=== PATIENT | female | born 1960 | race African-American/Black ===

== ENCOUNTER 2017-01-21 13:56 | Emergency (ER) | payer MEDICARE, OTHER ==
[~2017-01-21] VITALS: Ht 175.3 cm; Wt 85.7 kg
[~2017-01-21 13:56] MED LIST: AMLO5TAB4 PO; ASPI81TA2 PO; COLE1TAB PO; DICY10CA53 PO; EZET10TA3 PO; FENO135C PO; FENT1PAT15 TD; FENT1PAT90 TP; LATA2.5D3 EACHEYE; LIPITOR80 MG PO; LOSA50TA6 PO; MECL25TA3 PO; MUPI15CR8 TP; OMEP40CA5 PO; OXYC-250 PO; PROC5TAB14 PO; TOPI25TA32 PO; TRIA1CAP PO
[2017-01-21] MEDS ORDERED: IV NORMAL SALINE 1000ML BAG 1,000 ML IV SCH (15:16)
--- NOTE | 2017-01-21 15:16 | PHYS DOC ---
Past Medical History Past Medical History: High Cholesterol, Hypertension, Other Additional Past Medical Histor: Lupus Past Surgical History: Cholecystectomy, Hysterectomy, Tubal ligation Alcohol Use: Occasionally Drug Use: None Adult General Chief Complaint Chief Complaint: FLANK PAIN HPI HPI Patient is a 56 year old female who presents with L flank pain. Patient reports since yesterday she has had sharp L flank pain. No clear inciting or mitigating factors, other than slight improvement in pain after taking a pain pill last night. Pain accompanied by nausea but no vomiting. No dysuria or other urinary complaints. No fever. Had a similar episode in the distant past. Review of Systems Review of Systems Constitutional: Denies fever or chills Eyes: Denies change in visual acuity or eye pain HENT: Denies nasal congestion or sore throat Respiratory: Denies cough or shortness of breath Cardiovascular: Denies chest pain GI: Nausea. Denies abdominal pain, vomiting, bloody stools or diarrhea : Denies dysuria or hematuria Musculoskeletal: L flank pain Integument: Denies rash or skin lesions Neurologic: Denies headache, focal weakness or sensory changes Current Medications Current Medications Current Medications Medications (Trade) Dose Ordered Sig/Tiffani Start Time Stop Time Status Last Admin Dose Admin Morphine Sulfate 4 mg 1X ONCE 01/21/17 15:30 01/21/17 17:10 DC 01/21/17 15:39 4 MG Ondansetron HCl (Zofran) 4 mg 1X ONCE 01/21/17 15:30 01/21/17 17:10 DC 01/21/17 15:39 4 MG Sodium Chloride (Iv Sodium Chloride 0.9% 1000ml Bag) 1,000 ml @ 1,000 mls/hr Q1H 01/21/17 15:16 01/21/17 17:10 DC 01/21/17 15:38 1,000 MLS/HR Allergies Allergies Allergies Coded Allergies Type Severity Reaction Last Updated Verified No Known Drug Allergies 09/08/16 No Physical Exam Physical Exam Constitutional: Well developed, well nourished, no acute distress, non-toxic appearance HENT: Normocephalic, atraumatic, bilateral external ears normal Eyes: EOMI, conjunctiva normal, no discharge Neck: Normal range of motion, no stridor Cardiovascular: Heart rate normal, regular rhythm, no murmur Lungs & Thorax: Bilateral breath sounds clear to auscultation Abdomen: Bowel sounds normal, soft, non-distended, no TTP Skin: Warm, dry, no erythema, no rash Back: No CVA tenderness Extremities: No obvious deformity, no edema Neurologic: Alert and oriented X 3, no gross deficits noted Current Patient Data Vital Signs Vital Signs Date Time Temp Pulse Resp B/P Pulse Ox O2 Delivery O2 Flow Rate FiO2 01/21/17 17:49 89 20 160/82 100 Room Air 01/21/17 14:15 98.5 98.5 Lab Values Laboratory Tests Test 01/21/17 14:08 01/21/17 14:30 Urine Collection Type Unknown Urine Color Yellow Urine Clarity Clear Urine pH 8.0 Urine Specific Lamont 1.020 Urine Protein Negativemg/dL (NEG-TRACE) Urine Glucose (UA) Negativemg/dL (NEG) Urine Ketones (Stick) Negativemg/dL (NEG) Urine Blood Negative (NEG) Urine Nitrite Negative (NEG) Urine Bilirubin Negative (NEG) Urine Urobilinogen Dipstick 1.0mg/dL (0.2 mg/dL) Urine Leukocyte Esterase Negative (NEG) Urine RBC 0/HPF (0-2) Urine WBC 0/HPF (0-4) Urine Squamous Epithelial Cells Many/LPF Urine Bacteria Few/HPF (0-FEW) Urine Mucus Slight/LPF White Blood Count 9.5x10^3/uL (4.0-11.0) Red Blood Count 4.21x10^6/uL (3.50-5.40) Hemoglobin 13.8g/dL (12.0-15.5) Hematocrit 40.5% (36.0-47.0) Mean Corpuscular Volume 96fL (79-100) Mean Corpuscular Hemoglobin 33pg (25-35) Mean Corpuscular Hemoglobin Concent 34g/dL (31-37) Red Cell Distribution Width 13.1% (11.5-14.5) Platelet Count 300x10^3/uL (140-400) Neutrophils (%) (Auto) 56% (31-73) Lymphocytes (%) (Auto) 34% (24-48) Monocytes (%) (Auto) 7% (0-9) Eosinophils (%) (Auto) 2% (0-3) Basophils (%) (Auto) 1% (0-3) Neutrophils # (Auto) 5.3x10^3uL (1.8-7.7) Lymphocytes # (Auto) 3.2x10^3/uL (1.0-4.8) Monocytes # (Auto) 0.7x10^3/uL (0.0-1.1) Eosinophils # (Auto) 0.2x10^3/uL (0.0-0.7) Basophils # (Auto) 0.1x10^3/uL (0.0-0.2) Sodium Level 145mmol/L (136-145) Potassium Level 3.8mmol/L (3.5-5.1) Chloride Level 107mmol/L (98-107) Carbon Dioxide Level 28mmol/L (21-32) Anion Gap 10 (6-14) Blood Urea Nitrogen 6mg/dL (7-20) L Creatinine 0.9mg/dL (0.6-1.0) Estimated GFR (Cockcroft-Gault) 78.7 BUN/Creatinine Ratio 7 (6-20) Glucose Level 86mg/dL (70-99) Calcium Level 8.9mg/dL (8.5-10.1) Total Bilirubin 0.3mg/dL (0.2-1.0) Aspartate Amino Transferase (AST) 20U/L (15-37) Alanine Aminotransferase (ALT) 22U/L (14-59) Alkaline Phosphatase 57U/L (46-116) Total Protein 7.7g/dL (6.4-8.2) Albumin 3.7g/dL (3.4-5.0) Albumin/Globulin Ratio 0.9 (1.0-1.7) L Laboratory Tests 01/21/17 14:30 Laboratory Tests 01/21/17 14:30 EKG EKG [] Radiology/Procedures Radiology/Procedures CT A/P: IMPRESSION: 1. No urinary tract calculi are identified. 2. Colonic diverticulosis. Course & Med Decision Making Course & Med Decision Making Pertinent Labs and Imaging studies reviewed. (See chart for details) Patient is 56 year old female who presents with L flank pain. Possible ureteral stone. Pyelonephritis or musculoskeletal etiology also possible. Will check labs , UA, CT A/P to evaluate. IVF bolus, pain meds, nausea meds ordered for relief of symptoms. Blood work unremarkable. UA also unremarkable. CT results as above. Discussed results with patient, who is feeling better at this time. Will plan discharge home with rx for pain meds, instructions for follow up, return precautions. Dragon Disclaimer Dragon Disclaimer This electronic medical record was generated, in whole or in part, using a voice recognition dictation system. Departure Departure Impression: Primary Impression: Left flank pain Disposition: HOME, SELF-CARE Condition: IMPROVED Referrals: ANIBAL HERNANDEZ MD (PCP) Patient Instructions: Flank Pain Additional Instructions: Thank you for allowing us to provide care today in the Emergency Department. Take the provided medication as directed. Use caution as it can make you drowsy. Schedule a follow up appointment with your primary care doctor. Return promptly to the Emergency Department if you develop any new or concerning symptoms. Scripts Hydrocodone/Apap 5-325 (Antigo 5-325 Tablet)1 Each Tablet1 Tab PO PRN Q6HRS PRN PAIN #15 TAB Prov:MARSHALL BAKER MD 01/21/17 MARSHALL BAKER MD Jan 21, 2017 15:16
[2017-01-21] MEDS ORDERED: MORPHINE SULFATE 4 MG/ML DISP.SYRIN. IV ONE (15:30)
[2017-01-21] MEDS ORDERED: ONDANSETRON PF 4 MG/2 ML VIAL. IV ONE (15:30)
[2017-01-21 15:34] LABS: BASO # 0.1 x10^3/uL (0.0-0.2); BASO % 1 % (0-3); EOS % 2 % (0-3); HEMATOCRIT 40.5 % (36.0-47.0); HEMOGLOBIN 13.8 g/dL (12.0-15.5); LYMPH # 3.2 x10^3/uL (1.0-4.8); LYMPH % 34 % (24-48); MEAN CORPUSCULAR HEMOGLOBIN 33 pg (25-35); MEAN CORPUSCULAR HGB CONC 34 g/dL (31-37); MEAN CORPUSCULAR VOLUME 96 fL (79-100); MONO % 7 % (0-9); NEUT % 56 % (31-73); PLATELET COUNT 300 x10^3/uL (140-400); RED BLOOD COUNT 4.21 x10^6/uL (3.50-5.40); RED CELL DISTRIBUTION WIDTH 13.1 % (11.5-14.5); WHITE BLOOD COUNT 9.5 x10^3/uL (4.0-11.0)
[2017-01-21 15:46] LABS: BILIRUBIN,URINE NEGATIVE (NEG); GLUCOSE,URINE NEGATIVE (NEG); NITRITE,URINE NEGATIVE (NEG); PROTEIN,URINE NEGATIVE (NEG-TRACE)
[2017-01-21 15:49] LABS: CALCIUM 8.9 mg/dL (8.5-10.1); CREATININE 0.9 mg/dL (0.6-1.0); GFR 78.7; POTASSIUM 3.8 mmol/L (3.5-5.1)
[2017-01-21 15:55] LABS: ALBUMIN 3.7 g/dL (3.4-5.0); ALBUMIN/GLOBULIN RATIO 0.9 (1.0-1.7); TOTAL BILIRUBIN 0.3 mg/dL (0.2-1.0); TOTAL PROTEIN 7.7 g/dL (6.4-8.2)
[2017-01-21 16:01] LABS: BACTERIA,URINE FEW /HPF (0-FEW); RBC,URINE 0 /HPF (0-2); SQUAMOUS EPITHELIAL CELL,UR MANY /LPF; WBC,URINE 0 /HPF (0-4)
--- NOTE | 2017-01-21 16:37 | RAD ---
PQRS Compliance Statement: One or more of the following individualized dose reduction techniques were utilized for this examination: 1. Automated exposure control 2. Adjustment of the mA and/or kV according to patient size 3. Use of iterative reconstruction technique CT of the abdomen and pelvis without contrast, 01/21/2017: History: Left flank pain Noncontrast scans were obtained through the urinary tract utilizing the renal stone protocol. This is a limited study for evaluation of the possibility of urinary tract calculi. No intrarenal calculi are identified. The renal collecting systems and ureters are not dilated. No ureteral calculus is seen. Several pelvic calcifications are compatible with a combination of phleboliths and arterial calcifications. Mild diffuse bladder wall thickening is probably related to its nondistended state. The unopacified liver is unremarkable. The gallbladder is surgically absent. There is moderate dilatation of the common bile duct, probably secondary to the postcholecystectomy state. This was also evident on the study from 02/19/2015. No pancreatic abnormality is evident. The spleen is of normal size. Aortic calcific plaquing is present without evidence of aneurysm. No abdominal or pelvic adenopathy is seen. The uterus is surgically absent. Scattered colonic diverticula are present. No paracolonic inflammatory process is seen. The bowel loops are not dilated. The appendix is visualized and shows no abnormality. No free fluid or free air is evident in the abdomen or pelvis. Avascular necrosis is again noted in both femoral heads. IMPRESSION: 1. No urinary tract calculi are identified. 2. Colonic diverticulosis.
[2017-01-21] MEDS ORDERED: HYDR-971 PO (17:24)
[2017-01-21 17:49] VITALS: BP 160/82
== END 2017-01-21 17:50 | disposition home or self-care (01) ==
LOC: ER 13:56
DX: R10.9 Unspecified abdominal pain (principal); R11.0 Nausea; E78.00 Pure hypercholesterolemia, unspecified; I10 Essential (primary) hypertension; M32.9 Systemic lupus erythematosus, unspecified; Z90.49 Acquired absence of other specified parts of digestive tract; Z90.710 Acquired absence of both cervix and uterus; Z98.51 Tubal ligation status
CPT/HCPCS: 36415; 74176; 80053; 81001; 85027; 96361; 96374; 96375; 99285; J2270; J2405; J7030

== ENCOUNTER → 2017-01-23 | Day surgery (SDC) | payer MEDICARE, OTHER ==
[~2017-01-23] MED LIST changes: +FENTANYL PF 100 MCG/2 ML VIAL. IV PRN; +HYDR-971 PO; +HYDROMORPHONE 2 MG/ML VIAL. IV PRN; +IV RINGERS,LACTATED 1000ML 1,000 ML IV SCH; +LIDOCAINE 1% 1 ML SYRINGE. ID PRN; +MORPHINE SULFATE 2 MG/ML DISP.SYRIN. IV PRN; +ONDANSETRON PF 4 MG/2 ML VIAL. IV PRN; +PROCHLORPERAZINE 10 MG/2 ML VIAL. IV PRN; +PROPOFOL 40 ML IV ONE
--- NOTE | 2017-01-23 09:00 | PDOC1 ---
HISTORY & PHYSICAL H&P Elba Eaton [id number] 1960 01/10/2017 03:00 PM 11/27 Offsite Care Resources [facility], [facility] OUR PATIENTS COME FIRST [address] [place] [id number] Ph. [phone] Patient: Elba Eaton Date of : 1960 Date: 01/10/2017 3:00 PM Visit Type: Office Visit This 56 year old female presents for Abdominal pain and Diarrhea. History of Present Illness: 1. Abdominal pain Location is epigastric, midline. There is no radiation. The patient describes it as aching, bloating and gnawing. Context: no pattern noted. Denies aggravating factors. Denies relieving factors. 2. Diarrhea Stool frequency: 3 to 5 times a day. The describes it as loose and watery. Associated symptoms include abdominal pain and bloating. Pertinent negatives include blood in stool, change in appetite, fever, nausea, rash and weight loss. Additional information: Patient was given Colestid before but does not know if it worked or not. Had last colonoscopy 2012. Had polyp removed and not retrieved. PROBLEM LIST: Problem Description Onset Date Numbness in both hands 04/01/2016 Chronic foot ulcer with fat layer exposed, right 06/15/2016 Gastroparesis syndrome 03/19/2013 Acute bacterial otitis media, left 03/18/2016 Varicose ulcer of lower extremity 03/28/2011 Medicare advantage coverage 10/21/2013 Anemia due to vitamin B12 deficiency, unspecified B12 deficiency type 2015 Hyperlipidemia 03/28/2011 Chronic pain 03/28/2011 Tobacco dependence syndrome 03/28/2011 Menopausal symptom 03/28/2011 Vasculitis 09/05/2016 GERD with esophagitis 11/23/2015 Varicose veins of bilateral lower extremities with other complications 2015 Chronic obstructive lung disease 12/20/2012 Migraine with aura 02/21/2014 Pain in both hands 02/23/2016 Neuropathy 02/23/2016 Benign essential hypertension 09/18/2009 Gastroesophageal reflux disease 09/18/2009 Pain in limb 09/18/2009 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 Abnormal glucose level 10/25/2012 PAST MEDICAL/SURGICAL HISTORY (Detailed) Disease/disorder Onset Date Management Date Comments EGD with biopsy 12/06/2012 Hysterectomy Cholecystectomy Bilateral tubal ligation Colonoscopy 2006 colonoscopy 04/22/2008 EGD with biopsy 02/09/2009 colonoscopy 10/14/2011 Cellulitis Chronic leg ulceration Colonic polyps colonoscopy 03/25/2013 Cutaneous lupus Diverticulosis Diverticulosis Duodenal polyp EGD with biopsy 07/22/2010 duodenitis EGD with biopsy 10/14/2011 Gastritis EGD 2005 Gastritis History of C.diff HTN Hyperlipidemia Hypertension rt carpel tunnel+rt elbow ulnar nerve 2016 surgrery rt wrist and elbow DIAGNOSTICS HISTORY: Test Ordered Interpretation Result completed [facility] GI ENDOSCOPY, DIAGNOSIS 07/22/2010 Abnormal duodenal polyp, gastritis, reflux esophagitis, schatzki's ring BX: hyperplastic duodenal polyps, mild chronic gastritis-KR 07/22/2010 Colonoscopy 10/05/2011 Diverticulosis of the sigmoid colon and descending colon. 10/14/2011 UPPR GI SCOPE DILATE STRICTR 10/05/2011 Granularity, erythema and nodularity in the distal bulb compatible with Nodular duodinitis (bx). Granularity, erythema and congestion in the antrum compatible with gastritis (bx). Stenosis of the lower third of esophagus (dilation). Grade II esophagitis in the lower third of the esophagus compatible with Ref esophagitis. 10/14/2011 EGD 11/28/2012 abnormal Imp: possible gastroparesis(bx) BX: reactive gastropathy 12/06/2012 Test Ordered Ordering Comments Modifier UPPR GI ENDOSCOPY, DIAGNOSIS 07/22/2010 Gastroenterology Colonoscopy 10/05/2011 UPPR GI SCOPE DILATE STRICTR 10/05/2011 EGD 11/28/2012 Medications (Active): Started Medication Directions Instruction Stopped 01/06/2017 amlodipine 5 mg tablet take 2 tablets (10MG) by oral route every day 01/06/2017 Bactroban 2 % topical ointment apply by topical route 2 times every day a small amount to the affected area 06/15/2016 cyanocobalamin (vit B-12) 1,000 mcg/mL injection solution inject 0.1 milliliter by intramuscular route every month 06/15/2016 Dyazide 37.5 mg-25 mg capsule take 1 capsule by ORAL route every day 01/06/2017 fentanyl 25 mcg/hr transdermal patch apply 1 patch by transdermal route every 72 hours 06/15/2016 folic acid 1 mg tablet take 1 tablet by oral route 2 times every day Horizant ER 600 mg tablet,extended release take 1 tablet by oral route 2 times every day with food at about 5 p.m. 09/03/2015 Lexapro 10 mg tablet take 1 tablet by oral route every day 05/18/2016 Lipitor 80 mg tablet take 1 tablet (80MG) by oral route every day 04/22/2015 losartan 50 mg tablet take 1 tablet by oral route every day 06/22/2015 omeprazole 40 mg capsule,delayed release take 1 capsule (40MG) by oral route every day before a meal 01/06/2017 Percocet 10 mg-325 mg tablet take 1 tablet by oral route every 4 hours as needed 01/06/2017 prochlorperazine maleate 10 mg tablet take 1 tablet by oral route 2 times every day 01/06/2017 Protonix 40 mg tablet,delayed release take 1 tablet by oral route every day 02/17/2016 Super B Complex-Vitamin C tablet take 1 tablet daily 01/06/2017 Topamax 25 mg tablet take 1 tablet by oral route 2 times every day in the morning and evening 10/19/2015 Trilipix 135 mg capsule,delayed release take 1 capsule (135MG) by ORAL route every day 10/19/2015 Zetia 10 mg tablet take 1 tablet (10MG) by oral route every day Allergies: Ingredient Reaction Medication Name Comment NO KNOWN ALLERGIES REVIEW OF SYSTEMS System Neg/Pos Details Constitutional Negative Chills, fever, malaise and weight loss. ENMT Negative Sore throat. Eyes Negative Double vision. Respiratory Negative Dyspnea and wheezing. Cardio Negative Chest pain and irregular heartbeat/palpitations. GI Positive Abdominal pain, Bloating, See HPI. GI Negative Blood in stool, change in appetite, nausea and see HPI. Negative Dysuria and hematuria. Endocrine Negative Cold intolerance and heat intolerance. Psych Negative Anxiety. Integumentary Negative Hives and rash. MS Negative Joint pain. Vitaliy/Lymph Negative Easy bleeding and easy bruising. Allergic/Immuno Negative Food allergies. VITAL SIGNS Time BP mm/Hg Pulse /min Resp /min Temp F Ht ft Ht in Ht cm Wt lb Wt kg BMI kg/ m2 BSA m2 O2 Sat% 2:42 PM 100 98.2 5.0 9.00 175.26 189.60 86.001 28.00 94 Time Measured by 2:42 PM Betty Richard PHYSICAL EXAM: Exam Findings Details Constitutional Normal Well developed. Eyes Normal Conjunctiva - Right: Normal, Left: Normal. Sclera - Right: Normal, Left: Normal. Nasopharynx Normal Lips/teeth/gums - Normal. Neck Exam Normal Inspection - Normal. Thyroid gland - Normal. Respiratory Normal Inspection - Normal. Auscultation - Normal. Cardiovascular Normal Regular rate and rhythm. No murmurs, gallops, or rubs. Vascular Normal Pulses - Carotids: Normal, Femoral: Normal, Dorsalis pedis: Normal. Abdomen Normal Inspection - Normal. Anterior palpation - No guarding. No abdominal tenderness. No hepatic enlargement. No splenic enlargement. No hernia. No Ascites. Skin Normal Inspection - Normal. Extremity Normal No edema. Psychiatric Normal Oriented to time, place, person, and situation. Appropriate mood and effect. The patient was checked out at 3:14 PM by Betty Richard. Assessment/Plan # Detail Type Description 1. Assessment Pain of upper abdomen (R10.10). Patient Plan schedule EGD at [facility] Plan Orders Further diagnostic evaluations ordered today include(s) EGD to be performed today. She is to schedule a follow-up visit with Marcela Greene MD upon completion of work-up 2. Assessment Functional diarrhea (K59.1). Provider Plan Could be due to IBS. last colonoscopy 2012. Negative. One polyp was removed but could not retrieved. 3. Assessment Irritable bowel syndrome with diarrhea (K58.0). Provider Plan Previous trial of Colestid unsuccessful. Electronically signed by: Marcela Greene MD 01/10/2017 03:40 PM Document generated by: Marcela Greene 01/10/2017 03:40 PM Jarrell Summers MD, Family Practice; Erick Neil MD Internal Medicine; Shauna Heart MD, Internal Medicine; Ayana Greene MD Internal Medicine; Marcela Greene MD, Gastroenterology; Best Storey MD, Rheumatology, S. Espinoza Galarza, Physical Medicine/Rehab JRomero Herrera APRN ------ 01/23/17 Patient seen and examined. No change in H&P. MARCELA GREENE MD Jan 23, 2017 09:00
--- NOTE | 2017-01-23 10:17 | PDOC4 ---
GI OP Report - Dr. Hernandez Date/Time DATE: 01/23/17 TIME: 10:16 Attending Physician Tomas Hernandez MD Referring Physician Indications Epigastric abdominal pain Pre-Op See the Anesthesia note for documentation of the administered medications Procedures Upper GI endoscopy+bx Findings - LA Grade B reflux esophagitis. - Small hiatus hernia. - Mild Schatzki ring. - Gastritis. Biopsied. - Nodular mucosa in the duodenal bulb. Biopsied. - Normal 2nd part of the duodenum and 3rd part of the duodenum. Plan - Discharge patient to home. - Patient has a contact number available for emergencies. The signs and symptoms of potential delayed complications were discussed with the patient. Return to normal activities tomorrow. Written discharge instructions were provided to the patient. - Resume regular diet. - Continue present medications. - Await pathology results. - Return to my office in 2 weeks. TOMAS HERNANDEZ MD Jan 23, 2017 10:17
[2017-01-23 10:30] VITALS: BP 157/109
--- NOTE | 2017-01-24 16:39 | PATHOLOGY ---
PATHOLOGY REPORT * * * * * * * * FINAL DIAGNOSIS: A. Duodenal biopsy: - Mild chronic duodenitis with focally prominent submucosal Ayaka's glands. B. Gastric biopsy, antrum: - Chronic gastritis, mild. COMMENT: Sections of the duodenal biopsy show congestion and mild chronic inflammation with focally prominent submucosal Ayaka's glands. The mucosal villi appear focally shortened. There is no intraepithelial lymphocytosis typical of sprue, however. The histologic findings are nonspecific. Sections of the gastric antral biopsy show congestion and mild chronic inflammation. An immunoperoxidase stain for Helicobacter is obtained. No Helicobacter organisms are identified. (JPM:csd; d/t: 01/24/2017) Immunoperoxidase stains: Helicobacter pylori (B1) REPORT ELECTRONICALLY SIGNED BY: Franco Fajardo M.D. DATE/TIME: 01/24/2017 16:39 * * * * * * * * GROSS PATHOLOGY: A. Received in formalin labeled "Dmitri Eaton, duodenal biopsy," are two segments of nieves soft tissue measuring 0.6 x 0.5 x 0.1 cm in aggregate dimensions and ranging from 0.5 to 0.6 cm in maximum dimension. The specimen is submitted entirely in cassette A1. B. Received in formalin labeled "Dmitri Eaton, antral biopsy," is a segment of nieves soft tissue measuring 0.5 cm in maximum dimension. The specimen is submitted entirely in cassette B1. (CAA; 01/23/2017) INITIAL CPT CODE(S): A; 10888 B; 46446, 16596 Professional services performed by [facility] [place] [address] Technical services performed by [facility] at [address] [place] [address] [address] [address]. SPECIMEN(S) RECEIVED: A.Duodenal biopsy B.Antral biopsy CLINICAL HISTORY: Abdominal pain; gastritis, reflux esophagitis, nodular duodenum PATIENT: DMITRI EATON /AGE: 12 1960 (Age: 56) PATIENT #: [id number] ALT CASE #: SPECIMEN COLLECTION DATE: 01/23/2017 SPECIMEN RECEIVED DATE: 01/23/2017 [facility] - [address] [place] [address] - PHONE: [phone] * * * END OF REPORT * * *
== END | disposition home or self-care (01) ==
LOC: ENDOS 08:39
PROVIDERS: ATTEND Internal Medicine Gastroenterology
DX: K29.70 Gastritis, unspecified, without bleeding (principal); K21.0 Gastro-esophageal reflux disease with esophagitis; K44.9 Diaphragmatic hernia without obstruction or gangrene; K22.2 Esophageal obstruction; K31.9 Disease of stomach and duodenum, unspecified; E78.00 Pure hypercholesterolemia, unspecified; I10 Essential (primary) hypertension; E66.9 Obesity, unspecified; F41.9 Anxiety disorder, unspecified; Z90.710 Acquired absence of both cervix and uterus; Z98.51 Tubal ligation status; Z90.721 Acquired absence of ovaries, unilateral; Z87.39 Personal history of other diseases of the musculoskeletal system and connective tissue
CPT/HCPCS: 43239; J2704

== ENCOUNTER → 2017-03-08 | Outpatient (CLI) | payer OTHER ==
[2017-01-23 10:30] VITALS: BP 157/109
[~2017-03-08] MED LIST changes: +BARIUM SULFATE 60% 355 ML SUSP PO ONE; -FENTANYL PF 100 MCG/2 ML VIAL. IV PRN; -HYDROMORPHONE 2 MG/ML VIAL. IV PRN; -IV RINGERS,LACTATED 1000ML 1,000 ML IV SCH; -LIDOCAINE 1% 1 ML SYRINGE. ID PRN; -MORPHINE SULFATE 2 MG/ML DISP.SYRIN. IV PRN; -ONDANSETRON PF 4 MG/2 ML VIAL. IV PRN; -PROCHLORPERAZINE 10 MG/2 ML VIAL. IV PRN; -PROPOFOL 40 ML IV ONE
--- NOTE | 2017-03-08 09:44 | RAD ---
Small bowel series, 03/08/2017: History: Diarrhea The preliminary abdominal image demonstrates a nonspecific gas pattern. Surgical clips are evident in the right upper quadrant compatible with a previous cholecystectomy. Overhead and spot films were obtained following oral ingestion of liquid barium. 0.5 minutes of fluoroscopy time was utilized. 3 fluoroscopic spot images were recorded. The small bowel loops are of normal caliber with no evidence of thickening of their folds. There is normal transit of the barium through the small bowel into the colon. The terminal ileum shows no abnormality. Mild gastroesophageal reflux occurred during the exam. IMPRESSION: No significant small bowel abnormality is detected.
== END | disposition home or self-care (01) ==
LOC: RAD 08:00
PROVIDERS: ATTEND Internal Medicine Gastroenterology
DX: R19.7 Diarrhea, unspecified (principal)
CPT/HCPCS: 74250

== ENCOUNTER 2017-04-05 13:14 | Inpatient (IN) | payer OTHER ==
[~2017-04-05] VITALS: Ht 175.3 cm; Wt 87.1 kg
[~2017-04-05 13:14] MED LIST changes: -BARIUM SULFATE 60% 355 ML SUSP PO ONE
--- NOTE | 2017-04-05 14:34 | PHYS DOC ---
Past Medical History Past Medical History: High Cholesterol, Hypertension, Other Additional Past Medical Histor: Lupus Past Surgical History: Cholecystectomy, Hysterectomy, Tubal ligation Alcohol Use: Occasionally Drug Use: None Adult General Chief Complaint Chief Complaint: FOOT INJURY PAIN HPI HPI Patient is a 56 year old female presenting to the emergency department for evaluation of bilateral foot pain has been going on for the past several days and they're more swollen. No fevers chills nausea vomiting redness warmth or any systemic symptoms. Patient is in no obvious distress with normal vital signs. She says that she was sent here by her primary care provider Dr. Heart for admission for pain control. Review of Systems Review of Systems Constitutional: Denies fever or chills [] Eyes: Denies change in visual acuity, redness, or eye pain [] HENT: Denies nasal congestion or sore throat [] Respiratory: Denies cough or shortness of breath [] Cardiovascular: No additional information not addressed in HPI [] GI: Denies abdominal pain, nausea, vomiting, bloody stools or diarrhea [] : Denies dysuria or hematuria [] Musculoskeletal: Denies back pain. BL foot pain Integument: Denies rash or skin lesions [] Neurologic: Denies headache, focal weakness or sensory changes [] Current Medications Current Medications Current Medications Medications (Trade) Dose Ordered Sig/Tiffani Start Time Stop Time Status Last Admin Dose Admin Fentanyl Citrate (Fentanyl 2ml Vial) 50 mcg PRN Q1HR PRN 04/05/17 16:15 04/06/17 16:14 UNV Hydromorphone HCl (Dilaudid) 1 mg 1X ONCE 04/05/17 14:45 04/05/17 14:46 DC 04/05/17 15:17 1 MG Ondansetron HCl (Zofran) 4 mg PRN Q8HRS PRN 04/05/17 16:15 04/06/17 16:14 UNV Allergies Allergies Allergies Coded Allergies Type Severity Reaction Last Updated Verified No Known Drug Allergies 01/23/17 No Physical Exam Physical Exam Constitutional: Well developed, well nourished, no acute distress, non-toxic appearance. [] HENT: Normocephalic, atraumatic, bilateral external ears normal, oropharynx moist, no oral exudates, nose normal. [] Eyes: PERRLA, EOMI, conjunctiva normal, no discharge. [] Neck: Normal range of motion, no tenderness, supple, no stridor. [] Cardiovascular:Heart rate regular rhythm, no murmur [] Lungs & Thorax: Bilateral breath sounds clear to auscultation [] Abdomen: Bowel sounds normal, soft, no tenderness, no masses, no pulsatile masses. [] Skin: Warm, dry, no erythema, no rash. [] Back: No tenderness, no CVA tenderness. [] Extremities: No tenderness, no cyanosis, no clubbing, ROM intact. Bilateral feet slightly swollen and red but no obvious cellulitis. She has wounds on both feet but no induration or drainage. Neurologic: Alert and oriented X 3, normal motor function, normal sensory function, no focal deficits noted. [] Current Patient Data Vital Signs Vital Signs Date Time Temp Pulse Resp B/P (MAP) Pulse Ox O2 Delivery O2 Flow Rate FiO2 04/05/17 15:17 Room Air 04/05/17 14:27 98.2 99 16 166/97 (120) 98 98.2 Lab Values Laboratory Tests Test 04/05/17 14:40 White Blood Count 13.0 x10^3/uL (4.0-11.0) H Red Blood Count 4.04 x10^6/uL (3.50-5.40) Hemoglobin 13.6 g/dL (12.0-15.5) Hematocrit 38.9 % (36.0-47.0) Mean Corpuscular Volume 96 fL (79-100) Mean Corpuscular Hemoglobin 34 pg (25-35) Mean Corpuscular Hemoglobin Concent 35 g/dL (31-37) Red Cell Distribution Width 13.4 % (11.5-14.5) Platelet Count 366 x10^3/uL (140-400) Neutrophils (%) (Auto) 68 % (31-73) Lymphocytes (%) (Auto) 23 % (24-48) L Monocytes (%) (Auto) 7 % (0-9) Eosinophils (%) (Auto) 2 % (0-3) Basophils (%) (Auto) 0 % (0-3) Neutrophils # (Auto) 8.8 x10^3uL (1.8-7.7) H Lymphocytes # (Auto) 2.9 x10^3/uL (1.0-4.8) Monocytes # (Auto) 0.9 x10^3/uL (0.0-1.1) Eosinophils # (Auto) 0.2 x10^3/uL (0.0-0.7) Basophils # (Auto) 0.1 x10^3/uL (0.0-0.2) Sodium Level 141 mmol/L (136-145) Potassium Level 3.5 mmol/L (3.5-5.1) Chloride Level 106 mmol/L (98-107) Carbon Dioxide Level 29 mmol/L (21-32) Anion Gap 6 (6-14) Blood Urea Nitrogen 8 mg/dL (7-20) Creatinine 0.8 mg/dL (0.6-1.0) Estimated GFR (Cockcroft-Gault) 90.1 BUN/Creatinine Ratio 10 (6-20) Glucose Level 106 mg/dL (70-99) H Calcium Level 8.9 mg/dL (8.5-10.1) Magnesium Level 1.9 mg/dL (1.8-2.4) Total Bilirubin 0.4 mg/dL (0.2-1.0) Aspartate Amino Transferase (AST) 10 U/L (15-37) L Alanine Aminotransferase (ALT) 16 U/L (14-59) Alkaline Phosphatase 58 U/L (46-116) Creatine Kinase 32 U/L (26-192) Total Protein 7.8 g/dL (6.4-8.2) Albumin 3.6 g/dL (3.4-5.0) Albumin/Globulin Ratio 0.9 (1.0-1.7) L Laboratory Tests 04/05/17 14:40 Laboratory Tests 04/05/17 14:40 EKG EKG [] Radiology/Procedures Radiology/Procedures [] Course & Med Decision Making Course & Med Decision Making Patient with bilateral foot pain that is likely neuropathic in origin. I spoke to Dr. Heart and he is agreeable with admission so she'll be admitted for further observation and treatment. Dragon Disclaimer Dragon Disclaimer This electronic medical record was generated, in whole or in part, using a voice recognition dictation system. Departure Departure Impression: Primary Impression: Foot pain, bilateral Additional Impressions: Intractable pain Leukocytosis Disposition: 09 ADMITTED INPATIENT Admitting Physician: Anibal Heart Condition: GOOD Referrals: ANIBAL HEART MD (PCP) Problem Qualifiers PASTOR LOVE DO April 05, 2017 14:34
[2017-04-05] MEDS ORDERED: HYDROmorphone 2 MG/ML VIAL IV ONE (14:45)
[2017-04-05 14:46] LABS: BASO # 0.1 x10^3/uL (0.0-0.2); BASO % 0 % (0-3); EOS % 2 % (0-3); HEMATOCRIT 38.9 % (36.0-47.0); HEMOGLOBIN 13.6 g/dL (12.0-15.5); LYMPH # 2.9 x10^3/uL (1.0-4.8); LYMPH % 23 % (24-48); MEAN CORPUSCULAR HEMOGLOBIN 34 pg (25-35); MEAN CORPUSCULAR HGB CONC 35 g/dL (31-37); MEAN CORPUSCULAR VOLUME 96 fL (79-100); MONO % 7 % (0-9); NEUT % 68 % (31-73); PLATELET COUNT 366 x10^3/uL (140-400); RED BLOOD COUNT 4.04 x10^6/uL (3.50-5.40); RED CELL DISTRIBUTION WIDTH 13.4 % (11.5-14.5)
[2017-04-05 14:58] LABS: CALCIUM 8.9 mg/dL (8.5-10.1); CREATININE 0.8 mg/dL (0.6-1.0); GFR 90.1; POTASSIUM 3.5 mmol/L (3.5-5.1)
[2017-04-05 15:04] LABS: ALBUMIN 3.6 g/dL (3.4-5.0); ALBUMIN/GLOBULIN RATIO 0.9 (1.0-1.7); MAGNESIUM 1.9 mg/dL (1.8-2.4); TOTAL BILIRUBIN 0.4 mg/dL (0.2-1.0); TOTAL PROTEIN 7.8 g/dL (6.4-8.2)
[2017-04-05] MEDS ORDERED: ONDANSETRON PF 4 MG/2 ML VIAL. IV PRN (16:15)
[2017-04-05] MEDS: fentaNYL PF VIAL 100 MCG/2 ML VIAL IV PRN ×3 (17:53→22:39)
[2017-04-05 20:28] VITALS: BP 159/91
[2017-04-05] MEDS ORDERED: MECLIZINE HCL 12.5 MG TABLET. PO PRN (22:15)
[2017-04-05] MEDS: ATORVASTATIN CALCIUM 40 MG TABLET. PO SCH (22:27)
[2017-04-05] MEDS: ENOXAPARIN 40 MG/0.4 ML SYRINGE. SQ SCH (22:27)
[2017-04-05] MEDS: LATANOPROST 0.005% OPHTH SOLUTION 2.5ML BOTTLE. OU SCH (22:42)
[2017-04-05 23:16] VITALS: BP 165/92
--- NOTE | 2017-04-06 01:02 | ACF ---
Admission Forms Criteria PAIN MANAGEMENT GR Clinical Indications for Admission to Inpatient Care (Place 'X' for any and all applicable criteria): Hospital admission is needed for appropriate care of the patient because of 1 or more of the following are present (1)(2)(3)(4)(5): [X]I. Severe pain requiring acute inpatient management as indicated by 1 or more of the following (2)(5)(10): [X]a) Continuous or frequent (eg, every 2 to 4 hours) parenteral analgesics required [A] [X]b) Necessity (ie, alternative approaches not effective) for analgesic regimen that can only be performed or initiated in inpatient setting [ ]II. Pain causing debilitation to the point of inability to function or be supported at any other level of care [ ]III. Severe side effects from pain medications as indicated by ANY ONE of the following (12)(13)(14)(15): [ ]a) Uncontrollable seizures [ ]b) Cardiac arrhythmias of immediate concern [ ]c) Dehydration that is severe or persistent [ ]d) Vomiting that is severe or persistent [ ]e) Altered mental status that is severe or persistent [ ]f) Obstipation with inadequate GI function to maintain nutrition The original [employer] content created by [employer] has been revised. The portions of the content which have been revised are identified through the use of italic text or in bold, and [employer] has neither reviewed nor approved the modified material. All other unmodified content is copyright [employer]. Please see references footnoted in the original [employer] edition 2016 Admission Criteria Met?: Yes GREG CROOKS April 06, 2017 01:02
[2017-04-06 03:21] VITALS: BP 131/80
[2017-04-06] MEDS: fentaNYL PF VIAL 100 MCG/2 ML VIAL IV PRN ×3 (03:26→15:42)
[2017-04-06 07:00] VITALS: BP 139/79
[2017-04-06 07:32] LABS: BASO # 0.1 x10^3/uL (0.0-0.2); BASO % 1 % (0-3); EOS % 3 % (0-3); LYMPH # 3.2 x10^3/uL (1.0-4.8); LYMPH % 31 % (24-48); MEAN CORPUSCULAR HEMOGLOBIN 33 pg (25-35); MEAN CORPUSCULAR HGB CONC 34 g/dL (31-37); MEAN CORPUSCULAR VOLUME 96 fL (79-100); MONO % 8 % (0-9); NEUT % 58 % (31-73); PLATELET COUNT 327 x10^3/uL (140-400); RED BLOOD COUNT 3.66 x10^6/uL (3.50-5.40); RED CELL DISTRIBUTION WIDTH 13.5 % (11.5-14.5); WHITE BLOOD COUNT 10.2 x10^3/uL (4.0-11.0)
[2017-04-06 07:46] LABS: CREATININE 0.6 mg/dL (0.6-1.0); GFR 125.6; POTASSIUM 3.7 mmol/L (3.5-5.1)
[2017-04-06] MEDS: TOPIRAMATE 25 MG TABLET. PO SCH ×2 (08:38→20:22)
[2017-04-06] MEDS: TRIAMTERENE/HCTZ 37.5/25MG TABLET. PO SCH (08:38)
[2017-04-06] MEDS: PROCHLORPERAZINE 5 MG TABLET. PO SCH ×2 (08:38→20:22)
[2017-04-06] MEDS: amLODIPine BESYLATE 10 MG TABLET PO SCH (08:38)
[2017-04-06] MEDS: ASPIRIN CHEWABLE 81 MG TABLET. PO SCH (08:38)
[2017-04-06] MEDS: oxyCODONE/APAP 10/325 1 TAB TABLET PO PRN ×2 (08:39→20:23)
--- NOTE | 2017-04-06 09:41 | EKG ---
[facility] [address] [place] [address] Test Date: 2017-04-05 Test Time: 23:09:37 Pat Name: DMITRI MARTÍNEZ Department: Room: [facility] Gender: F Coagulant Dipper: BISI : 1960 Requested By: ANIBAL HERNANDEZ Order Number: [id number] Reading MD: Young Hoffman Measurements Intervals [place] Rate: 89 P: 34 NM: 160 QRS: -7 QRSD: 74 T: 32 QT: 394 QTc: 486 Interpretive Statements SINUS RHYTHM Electronically Signed On 04-10-2017 9:28:20 CDT by Young Hofmfan
--- NOTE | 2017-04-06 09:47 | RAD ---
Indication: COPD and smoker. Time of exam 0902 hours. Correlation is made with prior study from 05/25/2016. The heart size is stable. There is some mild infiltrate or atelectasis in the right base which is new since prior. Left lung is clear. No effusion or pneumothorax is seen. Impression: Development of right basilar infiltrate or atelectasis.
--- NOTE | 2017-04-06 10:20 | PDOC ---
Provider Note Provider Note Pt seen.H&P dictated. #[id number] ANIBAL HERNANDEZ MD April 06, 2017 10:20
[2017-04-06 11:00] VITALS: BP 168/99
--- NOTE | 2017-04-06 11:09 | HP ---
ADMIT DATE: 04/05/2017 LOCATION: 660. REASON FOR ADMISSION TO THE HOSPITAL: Leg ulcers, painful, pain control. 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 She has breakdown of the skin ulcers in the left foot, got progressively worse, more painful. She is on Percocet for pain, not controlled, was coming for pain control, was given IV Dilaudid, it is much better. She had extensive workup in the past including arterial venous, has been to the Wound Care, [facility], and Rheumatology and Dermatology. PAST MEDICAL HISTORY: History of hypertension, hyperlipidemia, varicose veins, cutaneous vasculitis, COPD, migraine, depression, and diverticulosis. PAST SURGICAL HISTORY: The patient had a colon polyp detected and had EGDs, and carpal tunnel surgery. She had hysterectomy and tubal ligation. ALLERGIES: No known drug allergies. MEDICATIONS AT HOME: The patient is on fentanyl patch 25 mcg daily, hydrocodone for pain, amlodipine 5 mg daily, aspirin 81 mg daily, atorvastatin 80 mg daily; eye drops, latanoprost one drop every 6 hours, meclizine 25 mg, Percocet q. 6h., Topamax 25 mg twice a day, and Dyazide one daily. PERSONAL HISTORY: Smokes 1 pack. Denies alcohol. The patient is on chronic narcotic pain medications. FAMILY HISTORY: Hypertension and heart disease. REVIEW OF SYSTEMS: CARDIAC: No chest pain. LUNGS: No cough or sputum. GASTROINTESTINAL: No nausea or vomiting. Complains of pain in the legs of the foot ulceration area. PHYSICAL EXAMINATION: GENERAL: The patient is in pain at the present time. VITAL SIGNS: Temperature 97, pulse 87, respirations 20, blood pressure 165/92, and 98% on room air. HEENT: Head is atraumatic. Pupils are equal. Oral cavity: Dentures. NECK: Supple. Thyroid not enlarged, JVD not elevated. CHEST: Symmetrical. CARDIOVASCULAR: S1, S2. LUNGS: Clear. ABDOMEN: Soft, bowel sounds present, no mass palpable. EXTERNAL GENITALIA: No Gagnon. RECTAL: Deferred. EXTREMITIES: No calf tenderness, no edema. The patient has chronic venous insufficiency, has multiple healed scars on the dorsal aspect of both feet and ankle. Has active ulcerations which is stage II, dorsal aspect of the left foot, 1 cm and painful, tender. Dorsalis, posterior tibial 1+ on both. LABORATORY DATA: Shows a white count of 13, hemoglobin 13, and platelets 336. Electrolytes show sodium 131, potassium 3.5, chloride 106, bicarbonate 29, BUN 8, and creatinine 0.8. LFTs were normal. FINAL IMPRESSION: 1. Painful cutaneous ulcers. 2. Chronic venous insufficiency with evidence of superficial vasculitis. 3. Chronic pain, on narcotic pain medications already, fentanyl and Percocet at home. 4. Hypertension. 5. Chronic obstructive pulmonary disease. 6. Smoking. PLAN: At this time, admit to hospital for pain control and Wound Care consult, PT, OT, and IV Dilaudid for pain. The patient, as mentioned, has seen all the specialists in the past including Dermatology, Vascular, Rheumatology and been at the Wound Care Center at [facility]. ANIBAL HERNANDEZ MD DR: MARSHALL/anirudh JOB#: [id number] / [id number]
[2017-04-06] MEDS: HYDROmorphone 2 MG/ML VIAL IV PRN (11:41)
--- NOTE | 2017-04-06 12:21 | RAD ---
Exam performed :CT scan chest without contrast. Indication: COPD and smoker, Pulmonary infiltrates Date of exam: 04/06/17. Comparison;2 view chest from earlier today at Technique: Helical sections of the chest were obtained without Intravenous contrast. Sagittal and coronal reformatted images were obtained and reviewed. Findings : The heart, hilar and mediastinal structures appear unremarkable. Evidence of pathologic lymphadenopathy is not identified. Streaky linear opacities are seen in both lung bases, greater on the right probably atelectasis or scarring. No pleural fluid or pleural thickening is identified. No pleural calcification is noted. Structures at the thoracic inlet including both lobes of the thyroid gland appear normal. IV contrast limits evaluation of neck and intrathoracic great vessels, however they appear grossly normal. No dominant lymphadenopathy is seen in the neck or axilla. As visualized, the osseous structures appear unremarkable. Limited evaluation of the upper abdominal structures is essentially unremarkable Impression: 1. Streaky linear opacities in both lung bases likely atelectasis or scarring. 2. No additional abnormality seen. PQRS Compliance Statement: One or more of the following individualized dose reduction techniques were utilized for this examination: 1. Automated exposure control 2. Adjustment of the mA and/or kV according to patient size 3. Use of iterative reconstruction technique
[2017-04-06] MEDS: IPRATRPIUM/ALBUTEROL 0.5/2.5MG 3 ML NEBU. NEB SCH ×3 (12:37→20:27)
[2017-04-06 15:00] VITALS: BP 111/62
[2017-04-06 19:47] VITALS: BP 117/70
[2017-04-06] MEDS: LATANOPROST 0.005% OPHTH SOLUTION 2.5ML BOTTLE. OU SCH (20:21)
[2017-04-06] MEDS: ATORVASTATIN CALCIUM 40 MG TABLET. PO SCH (20:22)
[2017-04-06] MEDS: ENOXAPARIN 40 MG/0.4 ML SYRINGE. SQ SCH (20:22)
[2017-04-06 23:17] VITALS: BP 131/86
[2017-04-07] MEDS: oxyCODONE/APAP 10/325 1 TAB TABLET PO PRN ×3 (02:18→15:37)
[2017-04-07 03:16] VITALS: BP 127/79
[2017-04-07 04:42] LABS: BASO % 0 % (0-3); EOS % 2 % (0-3); HEMATOCRIT 36.9 % (36.0-47.0); HEMOGLOBIN 12.6 g/dL (12.0-15.5); LYMPH # 2.4 x10^3/uL (1.0-4.8); LYMPH % 22 % (24-48); MEAN CORPUSCULAR HEMOGLOBIN 33 pg (25-35); MEAN CORPUSCULAR HGB CONC 34 g/dL (31-37); MEAN CORPUSCULAR VOLUME 96 fL (79-100); MONO % 7 % (0-9); NEUT % 69 % (31-73); PLATELET COUNT 331 x10^3/uL (140-400); RED BLOOD COUNT 3.83 x10^6/uL (3.50-5.40); RED CELL DISTRIBUTION WIDTH 13.2 % (11.5-14.5)
[2017-04-07 05:01] LABS: CALCIUM 8.9 mg/dL (8.5-10.1); CREATININE 0.8 mg/dL (0.6-1.0); GFR 90.1
[2017-04-07 07:30] VITALS: BP 128/74
[2017-04-07] MEDS ORDERED: POTASSIUM CHLORIDE 20 MEQ TABLET.ER. PO ONE ×3 (08:00→16:00)
--- NOTE | 2017-04-07 08:15 | PDOC ---
IRMAPorterALBA MCFARLANE FRENCH BINDING FOLDER 04/07/17 0815: IM PROGRESS NOTES- Subjective Subjective burning pain bilateral feet. wound L foot. [facility] started her on medication ?gabapentin 600mg every 6 hours. She does not have bottle available for name of med. Objective Objective mod distress Vitals Vital Signs Date Time Temp Pulse Resp B/P (MAP) Pulse Ox O2 Delivery O2 Flow Rate FiO2 04/07/17 03:30 Room Air 04/07/17 03:16 97.9 81 20 127/79 (95) 98 97.9 Input & Output Intake and Output 04/07/17 07:00 Intake Total 2750 ml Output Total 2300 ml Balance 450 ml Intake Oral 2700 ml IV Total 50 ml Output Urine Total 2300 ml # Voids 3 Physical Exam Physical Exam General appearance - alert, chronically ill appearing, and in mod distress Mental Status - alert, oriented to person, place, and time, affect appropriate to mood Head - normal Chest - clear to auscultation, no wheezes, rales or rhonchi, symmetric air entry Heart - S1 and S2 normal Abdomen - soft, nontender, nondistended, no masses or organomegaly Neurological - no acute focal neurological deficit noted Musculoskeletal - bilateral feet burning pain moderate to severe, dressing dorsal L foot. Extremities - no pedal edema Skin - warm and dry Labs Laboratory Tests Test 04/05/17 14:40 04/06/17 06:40 04/07/17 03:34 White Blood Count 13.0 x10^3/uL (4.0-11.0) 10.2 x10^3/uL (4.0-11.0) 11.0 x10^3/uL (4.0-11.0) Red Blood Count 4.04 x10^6/uL (3.50-5.40) 3.66 x10^6/uL (3.50-5.40) 3.83 x10^6/uL (3.50-5.40) Hemoglobin 13.6 g/dL (12.0-15.5) 12.0 g/dL (12.0-15.5) 12.6 g/dL (12.0-15.5) Hematocrit 38.9 % (36.0-47.0) 35.0 % (36.0-47.0) 36.9 % (36.0-47.0) Mean Corpuscular Volume 96 fL (79-100) 96 fL (79-100) 96 fL (79-100) Mean Corpuscular Hemoglobin 34 pg (25-35) 33 pg (25-35) 33 pg (25-35) Mean Corpuscular Hemoglobin Concent 35 g/dL (31-37) 34 g/dL (31-37) 34 g/dL (31-37) Red Cell Distribution Width 13.4 % (11.5-14.5) 13.5 % (11.5-14.5) 13.2 % (11.5-14.5) Platelet Count 366 x10^3/uL (140-400) 327 x10^3/uL (140-400) 331 x10^3/uL (140-400) Neutrophils (%) (Auto) 68 % (31-73) 58 % (31-73) 69 % (31-73) Lymphocytes (%) (Auto) 23 % (24-48) 31 % (24-48) 22 % (24-48) Monocytes (%) (Auto) 7 % (0-9) 8 % (0-9) 7 % (0-9) Eosinophils (%) (Auto) 2 % (0-3) 3 % (0-3) 2 % (0-3) Basophils (%) (Auto) 0 % (0-3) 1 % (0-3) 0 % (0-3) Neutrophils # (Auto) 8.8 x10^3uL (1.8-7.7) 5.9 x10^3uL (1.8-7.7) 7.6 x10^3uL (1.8-7.7) Lymphocytes # (Auto) 2.9 x10^3/uL (1.0-4.8) 3.2 x10^3/uL (1.0-4.8) 2.4 x10^3/uL (1.0-4.8) Monocytes # (Auto) 0.9 x10^3/uL (0.0-1.1) 0.8 x10^3/uL (0.0-1.1) 0.8 x10^3/uL (0.0-1.1) Eosinophils # (Auto) 0.2 x10^3/uL (0.0-0.7) 0.3 x10^3/uL (0.0-0.7) 0.2 x10^3/uL (0.0-0.7) Basophils # (Auto) 0.1 x10^3/uL (0.0-0.2) 0.1 x10^3/uL (0.0-0.2) 0.0 x10^3/uL (0.0-0.2) Sodium Level 141 mmol/L (136-145) 141 mmol/L (136-145) 140 mmol/L (136-145) Potassium Level 3.5 mmol/L (3.5-5.1) 3.7 mmol/L (3.5-5.1) 3.0 mmol/L (3.5-5.1) Chloride Level 106 mmol/L (98-107) 107 mmol/L (98-107) 105 mmol/L (98-107) Carbon Dioxide Level 29 mmol/L (21-32) 26 mmol/L (21-32) 27 mmol/L (21-32) Anion Gap 6 (6-14) 8 (6-14) 8 (6-14) Blood Urea Nitrogen 8 mg/dL (7-20) 8 mg/dL (7-20) 8 mg/dL (7-20) Creatinine 0.8 mg/dL (0.6-1.0) 0.6 mg/dL (0.6-1.0) 0.8 mg/dL (0.6-1.0) Estimated GFR (Cockcroft-Gault) 90.1 125.6 90.1 BUN/Creatinine Ratio 10 (6-20) Glucose Level 106 mg/dL (70-99) 92 mg/dL (70-99) 124 mg/dL (70-99) Calcium Level 8.9 mg/dL (8.5-10.1) 9.0 mg/dL (8.5-10.1) 8.9 mg/dL (8.5-10.1) Magnesium Level 1.9 mg/dL (1.8-2.4) Total Bilirubin 0.4 mg/dL (0.2-1.0) Aspartate Amino Transf (AST/SGOT) 10 U/L (15-37) Alanine Aminotransferase (ALT/SGPT) 16 U/L (14-59) Alkaline Phosphatase 58 U/L (46-116) Creatine Kinase 32 U/L (26-192) Total Protein 7.8 g/dL (6.4-8.2) Albumin 3.6 g/dL (3.4-5.0) Albumin/Globulin Ratio 0.9 (1.0-1.7) Laboratory Tests Test 04/07/17 03:34 White Blood Count 11.0 x10^3/uL (4.0-11.0) Red Blood Count 3.83 x10^6/uL (3.50-5.40) Hemoglobin 12.6 g/dL (12.0-15.5) Hematocrit 36.9 % (36.0-47.0) Mean Corpuscular Volume 96 fL (79-100) Mean Corpuscular Hemoglobin 33 pg (25-35) Mean Corpuscular Hemoglobin Concent 34 g/dL (31-37) Red Cell Distribution Width 13.2 % (11.5-14.5) Platelet Count 331 x10^3/uL (140-400) Neutrophils (%) (Auto) 69 % (31-73) Lymphocytes (%) (Auto) 22 % (24-48) Monocytes (%) (Auto) 7 % (0-9) Eosinophils (%) (Auto) 2 % (0-3) Basophils (%) (Auto) 0 % (0-3) Neutrophils # (Auto) 7.6 x10^3uL (1.8-7.7) Lymphocytes # (Auto) 2.4 x10^3/uL (1.0-4.8) Monocytes # (Auto) 0.8 x10^3/uL (0.0-1.1) Eosinophils # (Auto) 0.2 x10^3/uL (0.0-0.7) Basophils # (Auto) 0.0 x10^3/uL (0.0-0.2) Sodium Level 140 mmol/L (136-145) Potassium Level 3.0 mmol/L (3.5-5.1) Chloride Level 105 mmol/L (98-107) Carbon Dioxide Level 27 mmol/L (21-32) Anion Gap 8 (6-14) Blood Urea Nitrogen 8 mg/dL (7-20) Creatinine 0.8 mg/dL (0.6-1.0) Estimated GFR (Cockcroft-Gault) 90.1 Glucose Level 124 mg/dL (70-99) Calcium Level 8.9 mg/dL (8.5-10.1) Meds Current Medications Albuterol/ Ipratropium (Duoneb) 3 ml RTQID NEB Last administered on 04/06/17 20:27; Start 04/06/17 at 12:00 Amlodipine Besylate (Norvasc) 10 mg DAILY PO Last administered on 04/06/17 08: 38; Start 04/06/17 at 09:00 Aspirin (Children'S Aspirin) 81 mg DAILY PO Last administered on 04/06/17 08: 38; Start 04/06/17 at 09:00 Fentanyl (Duragesic 25mcg/ Hr Patch) 1 patch Q3DAYS TD ; Start 04/08/17 at 09:00 Levofloxacin/ Dextrose 100 ml @ 100 mls/hr Q24H IV Last administered on 11:40; Start 04/06/17 at 11:00 Prochlorperazine Maleate (Compazine) 10 mg BID PO Last administered on 20:22; Start 04/06/17 at 09:00 Topiramate (Topamax) 25 mg BID PO Last administered on 04/06/17 20:22; Start 04/06/17 at 09:00 Triamterene/HCTZ (Maxzide 37.5/ 25mg) 1 tab DAILY PO Last administered on 08:38; Start 04/06/17 at 09:00 Assessment Assessment FINAL IMPRESSION: 1. Painful cutaneous ulcers. 2. Chronic venous insufficiency with evidence of superficial vasculitis. 3. Chronic pain, on narcotic pain medications already, fentanyl and Percocet at home. 4. Hypertension. 5. Chronic obstructive pulmonary disease. 6. Smoking. PLAN: cutaneous ulcers bilateral feet with intractable pain/superficial vasculitis bilateral LE Pain medication Admit WBC 13.0 04/07 11.0 Levaquin 500mg IV wound care nurse duragesic 25mcg patch, dilaudid 2mg IV prn, oxy/apap 10/325 every 6 hours as needed ?neuropathic pain - she is trying to contact for name of med prescribed by [facility] hypokalemia Admit K 3.5 04/07 3.0 Replace 20 mEq tid today recheck in AM taking diuretic for BP control HTN continue home meds COPD duoneb qid DVT/GI prophylaxis lovenox PPI For further plan of care, please refer to the orders. PLAN: At this time, admit to hospital for pain control and Wound Care consult, PT, OT, and IV Dilaudid for pain. The patient, as mentioned, has seen all the specialists in the past including Dermatology, Vascular, Rheumatology and been at the Wound [facility] Center at [facility]. Plan Plan For more details regarding further plans, please refer to the orders. TOSIN HERNANDEZ MD 04/07/17 1004: IM PROGRESS NOTES- Assessment Assessment Feels very dizzy- has hypokalemia- d/c Triamterene/HCTZ.Replace K.Give Meclizine. The patient was seen and examined by me. Chart reviewed and plan of care formulated. Discussed with, reviewed and agree with SECURITY MANAGER's notes, plan of care and orders with modifications as necessary. For more details regarding further plans, please refer to the orders. ALBA TOUSSAINT APRN April 07, 2017 08:15 TOISN HERNANDEZ MD April 07, 2017 10:04
[2017-04-07] MEDS: IPRATRPIUM/ALBUTEROL 0.5/2.5MG 3 ML NEBU. NEB SCH ×4 (08:35→19:02)
[2017-04-07] MEDS ORDERED: GABA600T91 PO (09:06)
[2017-04-07] MEDS: ASPIRIN CHEWABLE 81 MG TABLET. PO SCH (09:07)
[2017-04-07] MEDS: amLODIPine BESYLATE 10 MG TABLET PO SCH (09:07)
[2017-04-07] MEDS: TOPIRAMATE 25 MG TABLET. PO SCH ×2 (09:07→20:41)
[2017-04-07] MEDS: TRIAMTERENE/HCTZ 37.5/25MG TABLET. PO SCH (09:07)
[2017-04-07] MEDS: PROCHLORPERAZINE 5 MG TABLET. PO SCH ×2 (09:08→20:40)
[2017-04-07 11:05] VITALS: BP 117/66
[2017-04-07] MEDS: HYDROmorphone 2 MG/ML VIAL IV PRN ×2 (12:33→20:44)
[2017-04-07 14:50] VITALS: BP 133/78
[2017-04-07 19:25] VITALS: BP 103/56
[2017-04-07] MEDS: LATANOPROST 0.005% OPHTH SOLUTION 2.5ML BOTTLE. OU SCH (20:40)
[2017-04-07] MEDS: ATORVASTATIN CALCIUM 40 MG TABLET. PO SCH (20:41)
[2017-04-07] MEDS: ENOXAPARIN 40 MG/0.4 ML SYRINGE. SQ SCH (20:44)
[2017-04-07 23:25] VITALS: BP 99/63
[2017-04-08] MEDS: oxyCODONE/APAP 10/325 1 TAB TABLET PO PRN ×2 (02:34→08:06)
[2017-04-08 03:25] VITALS: BP 126/81
[2017-04-08 04:54] LABS: BASO # 0.1 x10^3/uL (0.0-0.2); BASO % 1 % (0-3); EOS % 3 % (0-3); HEMATOCRIT 37.8 % (36.0-47.0); HEMOGLOBIN 13.1 g/dL (12.0-15.5); LYMPH # 2.8 x10^3/uL (1.0-4.8); LYMPH % 28 % (24-48); MEAN CORPUSCULAR HEMOGLOBIN 33 pg (25-35); MEAN CORPUSCULAR HGB CONC 35 g/dL (31-37); MEAN CORPUSCULAR VOLUME 96 fL (79-100); MONO % 8 % (0-9); NEUT % 61 % (31-73); PLATELET COUNT 362 x10^3/uL (140-400); RED BLOOD COUNT 3.93 x10^6/uL (3.50-5.40); RED CELL DISTRIBUTION WIDTH 13.4 % (11.5-14.5)
[2017-04-08 05:13] LABS: CALCIUM 9.4 mg/dL (8.5-10.1); CREATININE 0.9 mg/dL (0.6-1.0); GFR 78.7; POTASSIUM 4.3 mmol/L (3.5-5.1)
[2017-04-08] MEDS: IPRATRPIUM/ALBUTEROL 0.5/2.5MG 3 ML NEBU. NEB SCH ×2 (06:52→11:03)
[2017-04-08 07:00] VITALS: BP 106/56
[2017-04-08] MEDS: TOPIRAMATE 25 MG TABLET. PO SCH (08:04)
[2017-04-08] MEDS: PROCHLORPERAZINE 5 MG TABLET. PO SCH (08:04)
[2017-04-08] MEDS: ASPIRIN CHEWABLE 81 MG TABLET. PO SCH (08:05)
[2017-04-08] MEDS: amLODIPine BESYLATE 10 MG TABLET PO SCH (08:05)
[2017-04-08] MEDS ORDERED: fentaNYL 25MCG/HR PATCH 1 PATCH PATCH.TD72 TD SCH (09:00)
--- NOTE | 2017-04-08 10:22 | PDOC ---
IRMAP[employer]ALBA [employer] 04/08/17 1022: IM PROGRESS NOTES- Subjective Subjective pain level decreased to 4 from 10 at admission Name of medication sample Horizant Objective Objective mod distress Vitals Vital Signs Date Time Temp Pulse Resp B/P (MAP) Pulse Ox O2 Delivery O2 Flow Rate FiO2 04/08/17 09:06 16 93 Room Air 04/08/17 08:05 98 106/56 04/08/17 07:00 98.4 98.4 Input & Output Intake and Output 04/08/17 07:00 Intake Total 1460 ml Output Total 1050 ml Balance 410 ml Intake Oral 1460 ml Output Urine Total 1050 ml # Voids 3 Physical Exam Physical Exam General appearance - alert, chronically ill appearing, and in mod distress Mental Status - alert, oriented to person, place, and time, affect appropriate to mood Head - normal Chest - clear to auscultation, no wheezes, rales or rhonchi, symmetric air entry Heart - S1 and S2 normal Abdomen - soft, nontender, nondistended, no masses or organomegaly Neurological - no acute focal neurological deficit noted Musculoskeletal - bilateral feet burning pain moderate to severe, dressing dorsal L foot. Extremities - no pedal edema Skin - warm and dry Labs Laboratory Tests Test 04/07/17 03:34 04/08/17 03:20 White Blood Count 11.0 x10^3/uL (4.0-11.0) 10.0 x10^3/uL (4.0-11.0) Red Blood Count 3.83 x10^6/uL (3.50-5.40) 3.93 x10^6/uL (3.50-5.40) Hemoglobin 12.6 g/dL (12.0-15.5) 13.1 g/dL (12.0-15.5) Hematocrit 36.9 % (36.0-47.0) 37.8 % (36.0-47.0) Mean Corpuscular Volume 96 fL (79-100) 96 fL (79-100) Mean Corpuscular Hemoglobin 33 pg (25-35) 33 pg (25-35) Mean Corpuscular Hemoglobin Concent 34 g/dL (31-37) 35 g/dL (31-37) Red Cell Distribution Width 13.2 % (11.5-14.5) 13.4 % (11.5-14.5) Platelet Count 331 x10^3/uL (140-400) 362 x10^3/uL (140-400) Neutrophils (%) (Auto) 69 % (31-73) 61 % (31-73) Lymphocytes (%) (Auto) 22 % (24-48) 28 % (24-48) Monocytes (%) (Auto) 7 % (0-9) 8 % (0-9) Eosinophils (%) (Auto) 2 % (0-3) 3 % (0-3) Basophils (%) (Auto) 0 % (0-3) 1 % (0-3) Neutrophils # (Auto) 7.6 x10^3uL (1.8-7.7) 6.1 x10^3uL (1.8-7.7) Lymphocytes # (Auto) 2.4 x10^3/uL (1.0-4.8) 2.8 x10^3/uL (1.0-4.8) Monocytes # (Auto) 0.8 x10^3/uL (0.0-1.1) 0.8 x10^3/uL (0.0-1.1) Eosinophils # (Auto) 0.2 x10^3/uL (0.0-0.7) 0.3 x10^3/uL (0.0-0.7) Basophils # (Auto) 0.0 x10^3/uL (0.0-0.2) 0.1 x10^3/uL (0.0-0.2) Sodium Level 140 mmol/L (136-145) 138 mmol/L (136-145) Potassium Level 3.0 mmol/L (3.5-5.1) 4.3 mmol/L (3.5-5.1) Chloride Level 105 mmol/L (98-107) 103 mmol/L (98-107) Carbon Dioxide Level 27 mmol/L (21-32) 28 mmol/L (21-32) Anion Gap 8 (6-14) 7 (6-14) Blood Urea Nitrogen 8 mg/dL (7-20) 11 mg/dL (7-20) Creatinine 0.8 mg/dL (0.6-1.0) 0.9 mg/dL (0.6-1.0) Estimated GFR (Cockcroft-Gault) 90.1 78.7 Glucose Level 124 mg/dL (70-99) 103 mg/dL (70-99) Calcium Level 8.9 mg/dL (8.5-10.1) 9.4 mg/dL (8.5-10.1) Magnesium Level 2.0 mg/dL (1.8-2.4) Laboratory Tests Test 04/08/17 03:20 White Blood Count 10.0 x10^3/uL (4.0-11.0) Red Blood Count 3.93 x10^6/uL (3.50-5.40) Hemoglobin 13.1 g/dL (12.0-15.5) Hematocrit 37.8 % (36.0-47.0) Mean Corpuscular Volume 96 fL (79-100) Mean Corpuscular Hemoglobin 33 pg (25-35) Mean Corpuscular Hemoglobin Concent 35 g/dL (31-37) Red Cell Distribution Width 13.4 % (11.5-14.5) Platelet Count 362 x10^3/uL (140-400) Neutrophils (%) (Auto) 61 % (31-73) Lymphocytes (%) (Auto) 28 % (24-48) Monocytes (%) (Auto) 8 % (0-9) Eosinophils (%) (Auto) 3 % (0-3) Basophils (%) (Auto) 1 % (0-3) Neutrophils # (Auto) 6.1 x10^3uL (1.8-7.7) Lymphocytes # (Auto) 2.8 x10^3/uL (1.0-4.8) Monocytes # (Auto) 0.8 x10^3/uL (0.0-1.1) Eosinophils # (Auto) 0.3 x10^3/uL (0.0-0.7) Basophils # (Auto) 0.1 x10^3/uL (0.0-0.2) Sodium Level 138 mmol/L (136-145) Potassium Level 4.3 mmol/L (3.5-5.1) Chloride Level 103 mmol/L (98-107) Carbon Dioxide Level 28 mmol/L (21-32) Anion Gap 7 (6-14) Blood Urea Nitrogen 11 mg/dL (7-20) Creatinine 0.9 mg/dL (0.6-1.0) Estimated GFR (Cockcroft-Gault) 78.7 Glucose Level 103 mg/dL (70-99) Calcium Level 9.4 mg/dL (8.5-10.1) Magnesium Level 2.0 mg/dL (1.8-2.4) Meds Current Medications Fentanyl (Duragesic 25mcg/ Hr Patch) 1 patch Q3DAYS TD Last administered on 08:04; Start 04/08/17 at 09:00 Potassium Chloride (Klor-Con) 20 meq 1X ONCE PO Last administered on 12:03; Start 04/07/17 at 12:00; Stop 04/07/17 at 12:01; Status DC Potassium Chloride (Klor-Con) 20 meq 1X ONCE PO Last administered on 15:37; Start 04/07/17 at 16:00; Stop 04/07/17 at 16:01; Status DC Assessment Assessment FINAL IMPRESSION: 1. Painful cutaneous ulcers. 2. Chronic venous insufficiency with evidence of superficial vasculitis. 3. Chronic pain, on narcotic pain medications already, fentanyl and Percocet at home. 4. Hypertension. 5. Chronic obstructive pulmonary disease. 6. Smoking. PLAN: cutaneous ulcers bilateral feet with intractable pain/superficial vasculitis bilateral LE Pain medication Admit WBC 13.0 04/07 10.0 Levaquin 500mg IV wound care nurse duragesic 25mcg patch, dilaudid 2mg IV prn, oxy/apap 10/325 every 6 hours as needed ?neuropathic pain - she is trying to contact for name of med prescribed by [facility] Horizant 600mg q 6h from [facility] -samples begin gabapentin 600mg every 6 hours continue wound care at [facility] at discharge hypokalemia Admit K 3.5 04/08 4.8 Replace 20 mEq tid today recheck in AM taking diuretic for BP control stop HCTZ dizziness improved with med changes. HTN continue home meds COPD duoneb qid DVT/GI prophylaxis lovenox PPI For more details regarding further plans, please refer to the orders. Plan Plan For more details regarding further plans, please refer to the orders. TOSIN HERNANDEZ MD 04/08/17 1237: IM PROGRESS NOTES- Assessment Assessment The patient was seen and examined by me. Chart reviewed and plan of care formulated. Discussed with, reviewed and agree with CORRESPONDENCE REVIEW CLERK's notes, plan of care and orders with modifications as necessary. For more details regarding further plans, please refer to the orders. Doing better.Dizziness,feet pain better. She has pain meds at home. Discharge Management - 35 minutes. will see in 5 days. ALBA TOUSSAINT APRN April 08, 2017 10:22 TOSIN HERNANDEZ MD April 08, 2017 12:37
--- NOTE | 2017-04-08 10:34 | DISCH ---
DISCHARGE INSTRUCTIONS Condition on Discharge Condition on Discharge: Stable Activity After Discharge Activity Instructions for Disc: Activity as tolerated Diet after Discharge Diet after Discharge: Cardiac Contacting the DRRomero after DC Call your doctor for: Concerns you may have Follow-Up Follow up with: Dr. Heart in one week Follow Up With: [facility] Wound care next week. ALBA TOUSSAINT APRN April 08, 2017 10:34
[2017-04-08] MEDS ORDERED: GABA600T91 PO (10:39)
[2017-04-08 11:00] VITALS: BP 98/56
--- NOTE | 2017-04-13 11:54 | PDOC ---
Provider Note Provider Note Discharge summary dictated. #[id number] ANIBAL HERNANDEZ MD April 13, 2017 11:54
--- NOTE | 2017-04-13 22:08 | DS ---
DATE OF DISCHARGE: 04/08/2017 REASON FOR ADMISSION TO THE HOSPITAL: Painful leg ulcers, for pain control. CONSULTATIONS: None. PROCEDURES DONE: None. HOSPITAL COURSE: The patient is a 56-year-old female, patient has chronic venous insufficiency, cutaneous lupus ulcers, [facility] She takes Percocet for pain, but lately the pain has been bad , came to the Emergency Room, was admitted, was given IV fentanyl every 1 hour for pain control. The patient in the past has seen all the specialists including dermatology, rheumatology as well as vascular. 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 The patient was admitted to the hospital. Pain was controlled with fentanyl one every q. hour 25 mcg, and she was discharged on fentanyl patch as well as Percocet for pain. White count was 13, came down to 10, and she also had a chest x-ray shows infiltrates in the lung. She is a chronic smoker. Blood cultures were negative. Chest x-ray shows right basilar infiltrates and the CT scan of the chest shows no mass and some linear opacities both lung bases, and the patient was discharged on pain medications. ANIBAL HERNANDEZ MD DR: MARSHALL/anirudh JOB#: [id number] / [id number] BILL
[2017-04-26] MEDS ORDERED: B CO1TAB8 PO (17:16)
[2017-04-26] MEDS ORDERED: EZET10TA3 PO (17:16)
[2017-04-26] MEDS ORDERED: FENO135C PO (17:16)
[2017-04-26] MEDS ORDERED: PANT40TA3 PO (17:18)
[2017-05-02] MEDS ORDERED: SUMA100T3 PO (09:38)
== END 2017-04-08 14:00 | disposition home or self-care (01) | DRG 592 ==
LOC: ER 13:14 → ED HOLD 15:17 → 6 SOUTH 19:59
PROVIDERS: ADMIT Internal Medicine; ATTEND Internal Medicine
DX: L97.529 Non-pressure chronic ulcer of other part of left foot with unspecified severity (principal); J15.6 Pneumonia due to other Gram-negative bacteria; I77.6 Arteritis, unspecified; E78.00 Pure hypercholesterolemia, unspecified; E78.5 Hyperlipidemia, unspecified; E87.6 Hypokalemia; I10 Essential (primary) hypertension; F32.9 Major depressive disorder, single episode, unspecified; G43.909 Migraine, unspecified, not intractable, without status migrainosus; K57.90 Diverticulosis of intestine, part unspecified, without perforation or abscess without bleeding; F17.210 Nicotine dependence, cigarettes, uncomplicated; L97.519 Non-pressure chronic ulcer of other part of right foot with unspecified severity; G89.29 Other chronic pain; I87.2 Venous insufficiency (chronic) (peripheral); J44.9 Chronic obstructive pulmonary disease, unspecified; D72.829 Elevated white blood cell count, unspecified; Z82.49 Family history of ischemic heart disease and other diseases of the circulatory system; Z90.49 Acquired absence of other specified parts of digestive tract; Z90.710 Acquired absence of both cervix and uterus; Z98.51 Tubal ligation status; Z86.010 Personal history of colon polyps
CPT/HCPCS: 36415; 71020; 71250; 80048; 80053; 82550; 83735; 85027; 87040; 93005; 94250; 94640; 94760; 96374; J1170; J1650; J1956; J3010; J7620; Q0164; 99285-25

== ENCOUNTER → 2017-07-13 | Outpatient (CLI) | payer OTHER ==
[2017-05-02 11:00] VITALS: BP 120/78
[~2017-07-13] MED LIST changes: +ASPI-630 PO; -ASPI81TA2 PO; +B CO1TAB10 PO; +CONTRAST GIVEN MC PRN; +EZET10TA18 PO; -EZET10TA3 PO; +GABA600T91 PO; +IOHEXOL 240 MG/ML 50ML VIAL. PO ONE; +IOHEXOL 300 MG/ML 75 ML VIAL IV ONE; -OXYC-250 PO; +OXYC-328 PO; +PANT40TA3 PO; +SUMA100T3 PO; -TOPI25TA32 PO; +TOPI25TA52 PO
--- NOTE | 2017-07-13 12:28 | RAD ---
CT abdomen/pelvis with IV contrast 07/13/2017 at 0954 hours Indication: Stomach pain and cramping. Comparison: CT abdomen/pelvis 01/21/2017 Technique: Multiple axial CT images of the abdomen and pelvis were performed after the intravenous administration of 60 mL Omnipaque 300. Coronal and sagittal reformats are provided. Oral contrast was administered. Findings: Lung bases are clear. Heart size is within normal limits. No suspicious hepatic masses are identified. Spleen, bilateral adrenal glands, and pancreas are within normal limits. Gallbladder is surgically absent. There is no intrahepatic or extrahepatic periductal dilatation. Kidneys enhance symmetrically. No suspicious renal masses are identified. There is no hydronephrosis. No renal calculi. Ureters are not dilated. The abdominal aorta is normal in course and caliber. There are no pathologically enlarged lymph nodes in the abdomen or pelvis. There is no abdominal free fluid. No free intraperitoneal air. Normal appendix is visualized. There is circumferential wall thickening involving the proximal jejunum without dilatation. No dilated small or large bowel loops are identified. No evidence for bowel obstruction. Scattered colonic diverticula are present without adjacent inflammatory changes. There is a metallic radiopaque density identified within the cecum. Urinary bladder is within normal limits. No suspicious osseous lesions are identified. No significant adnexal lesion is present. Impression: 1. Circumferential wall thickening of proximal jejunal bowel loops is suspicious for an enteritis of infectious/inflammatory etiology. Alternatively, findings may be secondary to underdistention. 2. There is a radiopaque metallic foreign density in the cecum. Recommend correlation with any recent capsule endoscopy or ingested foreign body. 3. Status post cholecystectomy without evidence for intrahepatic or extrahepatic biliary ductal dilatation. PQRS Compliance Statement: One or more of the following individualized dose reduction techniques were utilized for this examination: 1. Automated exposure control 2. Adjustment of the mA and/or kV according to patient size 3. Use of iterative reconstruction technique
== END | disposition home or self-care (01) ==
LOC: CT 08:01
PROVIDERS: ATTEND Internal Medicine Gastroenterology
DX: K58.9 Irritable bowel syndrome, unspecified (principal); Z90.49 Acquired absence of other specified parts of digestive tract
CPT/HCPCS: 74177; Q9966; Q9967

== ENCOUNTER → 2017-08-01 | Day surgery (SDC) | payer OTHER ==
[~2017-08-01] MED LIST changes: -CONTRAST GIVEN MC PRN; +HYDROmorphone 2 MG/ML VIAL IV PRN; -IOHEXOL 240 MG/ML 50ML VIAL. PO ONE; -IOHEXOL 300 MG/ML 75 ML VIAL IV ONE; +IV RINGERS,LACTATED 1000ML 1,000 ML IV SCH; +LIDOCAINE 1% 1 ML SYRINGE. ID PRN; +MIDAZOLAM HCL/PF 2 MG/2 ML VIAL. IV PRN; +MORPHINE SULFATE 2 MG/ML DISP.SYRIN. IV PRN; +ONDANSETRON PF 4 MG/2 ML VIAL. IV PRN; +PROCHLORPERAZINE 10 MG/2 ML VIAL. IV PRN; +PROPOFOL 40 ML IV ONE; +fentaNYL PF VIAL 100 MCG/2 ML VIAL IV PRN
--- NOTE | 2017-08-01 09:32 | PDOC1 ---
HISTORY & PHYSICAL H&P Elba Eaton [id number] 1960 07/04/2017 02:20 PM 11/27 [email or web address] [facility] OUR PATIENTS COME FIRST [address] [place] [id number] Ph. [phone] Patient: Elba Eaton Date of : 1960 Date: 07/04/2017 2:20 PM Visit Type: Office Visit This 56 year old female presents for IBS-D and Nausea/vomiting. History of Present Illness: 1. IBS-D Still is having significant abdominal cramps and also has been having diarrhea. No rectal bleeding. Has nausea. 2. Nausea/vomiting Severity level is: moderate. The patient describes it as bilious and clear fluid. Associated symptoms include abdominal pain, bloating, nausea and vomiting. Pertinent negatives include weight loss. Additional information: Patient continues to have nausea and at time vomiting. No fever. No chills.. INTAKE COMMENTS: Intake Comments: Nurse Note: the pt is here today still having issues with N/V and pain. The pt had some abnormal labs as well. PROBLEM LIST: Problem Description Onset Date Numbness in both hands 04/01/2016 Chronic foot ulcer with fat layer exposed, right 06/15/2016 Gastroparesis syndrome 03/19/2013 Acute bacterial otitis media, left 03/18/2016 Varicose ulcer of lower extremity 03/28/2011 Medicare advantage coverage 10/21/2013 Anemia due to vitamin B12 deficiency, unspecified B12 deficiency type 2015 Hyperlipidemia 03/28/2011 Chronic pain 03/28/2011 Tobacco dependence syndrome 03/28/2011 Menopausal symptom 03/28/2011 Vasculitis 09/05/2016 GERD with esophagitis 11/23/2015 Varicose veins of bilateral lower extremities with other complications 2015 Chronic obstructive lung disease 12/20/2012 Migraine with aura 02/21/2014 Pain in both hands 02/23/2016 Neuropathy 02/23/2016 Benign essential hypertension 09/18/2009 Gastroesophageal reflux disease 09/18/2009 Pain in limb 09/18/2009 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 Abnormal glucose level 10/25/2012 PAST MEDICAL/SURGICAL HISTORY (Detailed) Disease/disorder Onset Date Management Date Comments EGD with biopsy 12/06/2012 Hysterectomy Cholecystectomy Bilateral tubal ligation Colonoscopy 2006 colonoscopy 04/22/2008 EGD with biopsy 02/09/2009 colonoscopy 10/14/2011 Cellulitis Chronic leg ulceration Colonic polyps colonoscopy 03/25/2013 Cutaneous lupus Diverticulosis Diverticulosis Duodenal polyp EGD with biopsy 07/22/2010 duodenitis EGD with biopsy 10/14/2011 Gastritis EGD 2005 Gastritis History of C.diff HTN Hyperlipidemia Hypertension rt carpel tunnel+rt elbow ulnar nerve 2016 surgrery rt wrist and elbow DIAGNOSTICS HISTORY: Test Ordered Interpretation Result completed [facility] GI ENDOSCOPY, DIAGNOSIS 07/22/2010 Abnormal duodenal polyp, gastritis, reflux esophagitis, schatzki's ring BX: hyperplastic duodenal polyps, mild chronic gastritis-KR 07/22/2010 Colonoscopy 10/05/2011 Diverticulosis of the sigmoid colon and descending colon. 10/14/2011 UPPR GI SCOPE DILATE STRICTR 10/05/2011 Granularity, erythema and nodularity in the distal bulb compatible with Nodular duodinitis (bx). Granularity, erythema and congestion in the antrum compatible with gastritis (bx). Stenosis of the lower third of esophagus (dilation). Grade II esophagitis in the lower third of the esophagus compatible with Ref esophagitis. 10/14/2011 EGD 11/28/2012 abnormal Imp: possible gastroparesis(bx) BX: reactive gastropathy 12/06/2012 EGD 01/10/2017 abnormal Imp: LA grade B reflux esophagitis. Small hiatus hernia. Mild schatzki ring. Gastritis(bx). Nodular mucosa in the duodenal bulb( bx). Normal 2nd part of the duodenum and 3rd part of the duodenum. BX: Chronic Gastritis. Mild chronic duodenitis with focally prominent submucosal Ayaka's Glands. 01/23/2017 Small Intestine X-ray Series (multiple serial images) 03/03/2017 normal 2016 Test Ordered Ordering Comments Modifier UPPR GI ENDOSCOPY, DIAGNOSIS 07/22/2010 Gastroenterology Colonoscopy 10/05/2011 UPPR GI SCOPE DILATE STRICTR 10/05/2011 EGD 11/28/2012 EGD 01/10/2017 Small Intestine X-ray Series (multiple serial images) 03/03/2017 Medications (Active): Started Medication Directions Instruction Stopped 05/12/2017 amlodipine 5 mg tablet take 2 tablets (10MG) by oral route every day 01/06/2017 Bactroban 2 % topical ointment apply by topical route 2 times every day a small amount to the affected area 06/27/2017 Bentyl 10 mg capsule take 1 by Oral route tid ac 06/15/2016 cyanocobalamin (vit B-12) 1,000 mcg/mL injection solution inject 0.1 milliliter by intramuscular route every month 06/06/2017 diclofenac 1 % topical gel apply (2G) by topical route 4 times every day to the affected area(s) Horizant ER 600 mg tablet,extended release take 1 tablet by oral route 2 times every day with food at about 5 p.m. 05/26/2017 Lipitor 80 mg tablet take 1 tablet (80MG) by oral route every day 06/19/2017 omeprazole 40 mg capsule,delayed release take 1 capsule by oral route every day before a meal 06/19/2017 Percocet 10 mg-325 mg tablet take 1 tablet by oral route every 4 hours as needed 01/06/2017 prochlorperazine maleate 10 mg tablet take 1 tablet by oral route 2 times every day 06/19/2017 Proctofoam HC 1 %-1 % insert 1 applicatorful by rectal route 3- 4 times every day 02/17/2016 Super B Complex-Vitamin C tablet take 1 tablet daily 06/19/2017 Topamax 50 mg tablet take 1 tablet by oral route 2 times every day 10/19/2015 Trilipix 135 mg capsule,delayed release take 1 capsule (135MG) by ORAL route every day 02/03/2017 Zetia 10 mg tablet take 1 tablet (10MG) by oral route every day 06/19/2017 Zofran 8 mg tablet take 1 tab po tid prn Allergies: Ingredient Reaction Medication Name Comment NO KNOWN ALLERGIES REVIEW OF SYSTEMS System Neg/Pos Details Constitutional Negative Chills, fever, malaise and weight loss. ENMT Negative Sore throat. Eyes Negative Double vision. Respiratory Negative Dyspnea and wheezing. Cardio Negative Chest pain and irregular heartbeat/palpitations. GI Positive Abdominal pain, Bloating, Nausea, Vomiting, See HPI. GI Negative See HPI. Negative Dysuria and hematuria. Endocrine Negative Cold intolerance and heat intolerance. Psych Negative Anxiety. Integumentary Negative Hives and rash. MS Negative Joint pain. Vitaliy/Lymph Negative Easy bleeding and easy bruising. Allergic/Immuno Negative Food allergies. VITAL SIGNS Time BP mm/Hg Pulse /min Resp /min Temp F Ht ft Ht in Ht cm Wt lb Wt kg BMI kg/ m2 BSA m2 O2 Sat% 4:19 PM 136/82 105 97.6 5.0 9.00 175.26 185.00 83.915 27.32 99 Time Measured by 4:19 PM Betty Richard PHYSICAL EXAM: Exam Findings Details Constitutional Normal Well developed. Eyes Normal Conjunctiva - Right: Normal, Left: Normal. Sclera - Right: Normal, Left: Normal. Nasopharynx Normal Lips/teeth/gums - Normal. Neck Exam Normal Inspection - Normal. Thyroid gland - Normal. Respiratory Normal Inspection - Normal. Auscultation - Normal. Cardiovascular Normal Regular rate and rhythm. No murmurs, gallops, or rubs. Vascular Normal Pulses - Carotids: Normal, Femoral: Normal, Dorsalis pedis: Normal. Abdomen Normal Inspection - Normal. Anterior palpation - No guarding. No abdominal tenderness. No hepatic enlargement. No splenic enlargement. No hernia. No Ascites. Skin Normal Inspection - Normal. Extremity Normal No edema. Psychiatric Normal Oriented to time, place, person, and situation. Appropriate mood and effect. Assessment/Plan # Detail Type Description 1. Assessment Generalized abdominal pain (R10.84). Patient Plan Schedule Ct abdomen and pelvis. Plan Orders Further diagnostic evaluations ordered today include(s) Abdomen and Pelvis CT WITH Contrast to be performed today. She is to schedule a follow- up visit with Marcela Greene MD upon completion of work-up 2. Assessment Functional diarrhea (K59.1). Electronically signed by: Marcela Greene MD 07/04/2017 04:55 PM Document generated by: Marcela Greene 07/04/2017 04:55 PM Jarrell Summers MD, Family Practice; Erick Neil MD Internal Medicine; Shauna Heart MD, Internal Medicine; Ayana Greene MD Internal Medicine; Marcela Greene MD, Gastroenterology; Best Storey MD, Rheumatology, S. Espinoza Galarza, Physical Medicine/Mikeab Gary Herrera APRN ------ 08/01/17 Patient seen and examined. No change in H&P. MARCELA GREENE MD Aug 01, 2017 09:32
[2017-08-01 11:09] VITALS: BP 173/95
--- NOTE | 2017-08-01 11:27 | RAD ---
Indication post colonoscopy. Known foreign body but unable to find during the procedure. A single KUB was obtained. Note is made of a previous examination 03/08/2017. The abdominal gas pattern is normal. There is a metallic foreign body in the right abdomen. The exact positioning is uncertain but it may be in the right colon. Clips are seen in the gallbladder fossa. There is a metallic density overlying the upper sacrum, in the midline. Positioning is uncertain.
--- NOTE | 2017-08-03 12:48 | PATHOLOGY ---
PATHOLOGY REPORT * * * * * * * * FINAL DIAGNOSIS: Colonic mucosa, "sigmoid polyp x 3": - Fragments of Tubular adenomas. - There is no evidence of high-grade dysplasia or malignancy. (SHA:; 08/03/2017) REPORT ELECTRONICALLY SIGNED BY: Rufino Vieyra M.D. DATE/TIME: 08/03/2017 12:47 * * * * * * * * GROSS PATHOLOGY: Received in formalin labeled "Dmitri Yi, sigmoid polyps 3," is a 1.1 x 0.8 x 0.9 cm polypoid piece of nieves soft tissue. The margin is inked and the tissue is sectioned perpendicular to the margin and submitted in its entirety in cassette A1. Additionally received in formalin labeled "Dmitri Yi, sigmoid polyps 3," are three segments of nieves soft tissue measuring 1.6 x 0.4 x 0.5 cm in aggregate dimensions and ranging from 0.4 to 0.7 cm in maximum dimension. The specimen is submitted entirely in cassette A2. (TSD; 08/02/2017) INITIAL CPT CODE(S): A; 83428 Professional services performed [place] [facility] [place] [address] Technical services performed by [facility] at [address] [place] [address], [facility] [address], [place] [address]. SPECIMEN(S) RECEIVED: A.Sigmoid polyp x 3 CLINICAL HISTORY: IBS PATIENT: DMITRI MARTÍNEZ /AGE: 12 1960 (Age: 56) PATIENT #: [id number] ALT CASE #: SPECIMEN COLLECTION DATE: 08/01/2017 SPECIMEN RECEIVED DATE: 08/01/2017 [facility] - [address] [place] [address] - PHONE: [phone] * * * END OF REPORT * * *
== END | disposition home or self-care (01) ==
LOC: SURG 09:09
PROVIDERS: ATTEND Internal Medicine Gastroenterology
DX: K57.30 Diverticulosis of large intestine without perforation or abscess without bleeding (principal); K63.5 Polyp of colon; H40.9 Unspecified glaucoma; E78.00 Pure hypercholesterolemia, unspecified; I73.9 Peripheral vascular disease, unspecified; E66.9 Obesity, unspecified; F17.200 Nicotine dependence, unspecified, uncomplicated; Z68.43 Body mass index [BMI] 50.0-59.9, adult; F41.9 Anxiety disorder, unspecified; K21.9 Gastro-esophageal reflux disease without esophagitis; Z90.710 Acquired absence of both cervix and uterus; Z98.51 Tubal ligation status; Z86.39 Personal history of other endocrine, nutritional and metabolic disease; Z72.89 Other problems related to lifestyle; Z86.69 Personal history of other diseases of the nervous system and sense organs; Z90.49 Acquired absence of other specified parts of digestive tract; Z72.0 Tobacco use
CPT/HCPCS: 45385; 74000; 88305; J2704

== ENCOUNTER 2017-09-07 15:00 | Inpatient (IN) | payer OTHER ==
[~2017-09-07] VITALS: Ht 175.3 cm; Wt 84.4 kg
[~2017-09-07 15:00] MED LIST changes: -HYDROmorphone 2 MG/ML VIAL IV PRN; -IV RINGERS,LACTATED 1000ML 1,000 ML IV SCH; -LIDOCAINE 1% 1 ML SYRINGE. ID PRN; -MIDAZOLAM HCL/PF 2 MG/2 ML VIAL. IV PRN; -MORPHINE SULFATE 2 MG/ML DISP.SYRIN. IV PRN; -ONDANSETRON PF 4 MG/2 ML VIAL. IV PRN; -PROCHLORPERAZINE 10 MG/2 ML VIAL. IV PRN; -PROPOFOL 40 ML IV ONE; -fentaNYL PF VIAL 100 MCG/2 ML VIAL IV PRN
[2017-09-07] MEDS ORDERED: OXYC-328 PO (18:39)
[2017-09-07] MEDS ORDERED: AMLO5TAB4 PO (18:39)
[2017-09-07 19:14] VITALS: BP 173/102
[2017-09-07] MEDS ORDERED: INFLUENZA VAX SCREEN BY RX. MC ONE (19:15)
[2017-09-07] MEDS ORDERED: FLU VACC QS2017-18 (36MOS+)/PF 0.5 ML SYRINGE. VAX IM ONE (19:15)
[2017-09-07 19:30] VITALS: BP 142/87
[2017-09-07 20:20] LABS: BASO # 0.1 x10^3/uL (0.0-0.2); BASO % 1 % (0-3); EOS % 2 % (0-3); HEMATOCRIT 41.3 % (36.0-47.0); HEMOGLOBIN 13.9 g/dL (12.0-15.5); LYMPH # 2.2 x10^3/uL (1.0-4.8); LYMPH % 18 % (24-48); MEAN CORPUSCULAR HEMOGLOBIN 32 pg (25-35); MEAN CORPUSCULAR HGB CONC 34 g/dL (31-37); MEAN CORPUSCULAR VOLUME 95 fL (79-100); MONO % 5 % (0-9); NEUT % 74 % (31-73); PLATELET COUNT 255 x10^3/uL (140-400); RED BLOOD COUNT 4.34 x10^6/uL (3.50-5.40); RED CELL DISTRIBUTION WIDTH 15.4 % (11.5-14.5); WHITE BLOOD COUNT 11.8 x10^3/uL (4.0-11.0)
[2017-09-07 20:34] LABS: ALBUMIN 3.5 g/dL (3.4-5.0); ALBUMIN/GLOBULIN RATIO 0.9 (1.0-1.7); CALCIUM 8.8 mg/dL (8.5-10.1); GFR 69.7; POTASSIUM 3.7 mmol/L (3.5-5.1); TOTAL BILIRUBIN 0.5 mg/dL (0.2-1.0); TOTAL PROTEIN 7.5 g/dL (6.4-8.2)
[2017-09-07] MEDS: ATORVASTATIN CALCIUM 40 MG TABLET. PO SCH (20:34)
[2017-09-07] MEDS: oxyCODONE/APAP 10/325 1 TAB TABLET PO PRN (20:35)
--- NOTE | 2017-09-07 20:36 | EKG ---
[facility] [address] [place] [address] Test Date: 2017-09-07 Test Time: 20:31:59 Pat Name: DMITRI MARTÍNEZ Department: Room: 440 1 Gender: F Game Agent: CHIDI : 1960 Requested By: ANIBAL HERNANDEZ Order Number: [id number] Reading MD: Radha Ruiz Measurements Intervals Dalton Rate: 95 P: 44 WV: 158 QRS: 31 QRSD: 74 T: 62 QT: 378 QTc: 478 Interpretive Statements SINUS RHYTHM NORMAL ECG Electronically Signed On 09-10-2017 18:55:52 CDT by Radha Ruiz
[2017-09-07] MEDS: LATANOPROST 0.005% OPHTH SOLUTION 2.5ML BOTTLE. OU SCH (22:58)
[2017-09-07] MEDS: ENOXAPARIN 40 MG/0.4 ML SYRINGE. SQ SCH (23:08)
[2017-09-07 23:48] VITALS: BP 157/91
[2017-09-08] MEDS: oxyCODONE/APAP 10/325 1 TAB TABLET PO PRN ×5 (01:31→18:34)
[2017-09-08 03:26] VITALS: BP 135/76
[2017-09-08] MEDS: PANTOPRAZOLE 40 MG TABLET.DR. PO SCH (06:13)
[2017-09-08] MEDS: fentaNYL PF VIAL 100 MCG/2 ML VIAL IV PRN ×2 (06:14→21:33)
[2017-09-08 07:00] VITALS: BP 147/76
[2017-09-08 07:24] LABS: BILIRUBIN,URINE SMALL (NEG); GLUCOSE,URINE NEGATIVE (NEG); NITRITE,URINE NEGATIVE (NEG); PROTEIN,URINE NEGATIVE (NEG-TRACE)
--- NOTE | 2017-09-08 07:41 | RAD ---
Portable chest, 09/07/2017: History: Foot infection Comparison is made to a study from 04/06/2017. The heart size and pulmonary vascularity are normal. No pulmonary infiltrates are seen. There is no evidence of pleural fluid. IMPRESSION: No acute cardiopulmonary abnormality is detected.
[2017-09-08 07:43] LABS: BACTERIA,URINE FEW /HPF (0-FEW); RBC,URINE 0 /HPF (0-2); WBC,URINE 0 /HPF (0-4)
[2017-09-08 07:44] LABS: SQUAMOUS EPITHELIAL CELL,UR MANY /LPF
[2017-09-08] MEDS: amLODIPine BESYLATE 5 MG TABLET PO SCH (08:21)
[2017-09-08] MEDS: ASPIRIN CHEWABLE 81 MG TABLET. PO SCH (08:22)
[2017-09-08] MEDS: fentaNYL 25MCG/HR PATCH 1 PATCH PATCH.TD72 TD SCH (09:40)
--- NOTE | 2017-09-08 10:10 | PDOC ---
Provider Note Provider Note Pt seen.H&P dictated. #[id number] ANIBAL HERNANDEZ MD Sep 08, 2017 10:10
[2017-09-08] MEDS: DOXYCYCLINE HYCLATE 100 MG TABLET PO SCH ×2 (10:43→21:21)
[2017-09-08 11:00] VITALS: BP 144/94
--- NOTE | 2017-09-08 11:13 | HP ---
ADMIT DATE: 09/07/2017 LOCATION: 440. REASON FOR ADMISSION TO THE HOSPITAL: Bilateral leg wounds, painful, pain not controlled as outpatient. HISTORY OF PRESENT ILLNESS: The patient was going to [facility], but lately, there is change in insurance. They are not accepting her insurance. The patient was admitted for pain control and wound care. 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 PAST SURGICAL HISTORY: Had a hysterectomy, gallbladder surgery, tubal ligation, had EGD, colonoscopies, wrist surgery, she had debridements of the wounds. ALLERGIES: No known allergies. MEDICATIONS AT HOME: Amlodipine 5 mg daily, aspirin 81 mg daily, atorvastatin 80 mg daily, eye drops latanoprost q. 6, omeprazole 40 mg daily, oxycodone q. 4 hours. PERSONAL HISTORY: Smokes 1 pack. Denies alcohol or drug. The patient is on chronic narcotic pain medications. FAMILY HISTORY: Positive for hypertension and coronary artery disease. REVIEW OF SYMPTOMS: CARDIAC: No chest pain. GASTROINTESTINAL: No nausea or vomiting. EXTREMITIES: Complains of blisters in the feet as well as pain. Rest of her systems were reviewed and negative. PHYSICAL EXAMINATION: GENERAL: The patient is in pain, getting fentanyl. VITAL SIGNS: Temperature 97, pulse 106, respirations 18, blood pressure 173/102, 96 on room air. HEENT: Head is atraumatic. Pupils equal. Oral cavity: Dentures. NECK: Supple. Thyroid not enlarged. JVD not elevated. CHEST: Symmetrical. CARDIOVASCULAR: S1, S2. LUNGS: Clear. ABDOMEN: Soft. No mass palpable. EXTERNAL GENITALIA AND RECTAL: Deferred. EXTREMITIES: No edema. The patient has chronic venous insufficiency, has blisters with some pustules on both feet anywhere from 0.5 cm to 1 cm, has heel ulcers on ankles and the feet, pulse decreased on dorsalis and posterior tibial, painful ulcers. LABORATORY DATA: White count 12, hemoglobin 14, platelets 255. Electrolytes: Sodium 142, potassium 3.7, chloride 104, bicarb 31, BUN 8, creatinine 1.0. Glucose 114. LFTs were normal. Urine was negative. Chest x-ray was negative. EKG done. FINAL IMPRESSION: 1. 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 2. Chronic venous insufficiency with varicose veins. 3. Smoking tobacco user. 4. Hypertension. 5. Hyperlipidemia. PLAN: At this time, was admitted to the hospital. Wound care consult was done. IV fentanyl for pain control, PT, OT compression wraps and see how the patient's condition improves. ANIBAL HERNANDEZ MD DR: MARSHALL/anirudh JOB#: [id number] / [id number] BILL
[2017-09-08 15:00] VITALS: BP 152/100
[2017-09-08 19:00] VITALS: BP 139/82
[2017-09-08] MEDS: ATORVASTATIN CALCIUM 40 MG TABLET. PO SCH (21:21)
[2017-09-08] MEDS: LATANOPROST 0.005% OPHTH SOLUTION 2.5ML BOTTLE. OU SCH (21:21)
[2017-09-08] MEDS: ENOXAPARIN 40 MG/0.4 ML SYRINGE. SQ SCH (22:14)
[2017-09-08 23:00] VITALS: BP 136/94
[2017-09-09 03:00] VITALS: BP 142/93
[2017-09-09] MEDS: oxyCODONE/APAP 10/325 1 TAB TABLET PO PRN ×5 (03:47→22:33)
[2017-09-09 05:03] LABS: CALCIUM 8.6 mg/dL (8.5-10.1); CREATININE 0.8 mg/dL (0.6-1.0); GFR 90.1; POTASSIUM 3.3 mmol/L (3.5-5.1)
[2017-09-09] MEDS: fentaNYL PF VIAL 100 MCG/2 ML VIAL IV PRN ×2 (05:14→15:01)
[2017-09-09 07:00] VITALS: BP 138/71
[2017-09-09] MEDS: DOXYCYCLINE HYCLATE 100 MG TABLET PO SCH ×2 (09:55→22:32)
[2017-09-09] MEDS: POTASSIUM CHLORIDE 20 MEQ TABLET.ER. PO SCH ×2 (09:55→18:37)
[2017-09-09] MEDS: PANTOPRAZOLE 40 MG TABLET.DR. PO SCH (09:55)
[2017-09-09] MEDS: amLODIPine BESYLATE 5 MG TABLET PO SCH (09:56)
[2017-09-09] MEDS: ASPIRIN CHEWABLE 81 MG TABLET. PO SCH (09:56)
[2017-09-09 11:00] VITALS: BP 153/94
--- NOTE | 2017-09-09 11:40 | PDOC ---
IM PROGRESS NOTES- Subjective Subjective c/o [pain in both legs. Objective Vitals Vital Signs Date Time Temp Pulse Resp B/P (MAP) Pulse Ox O2 Delivery O2 Flow Rate FiO2 09/09/17 09:56 84 138/71 09/09/17 09:55 20 Room Air 09/09/17 07:00 97.7 96 97.7 Physical Exam Physical Exam General appearance - alert,chronically ill appearing, and in no distress and oriented to person, place, and time Mental Status - alert, oriented to person, place, and time, affect appropriate to mood Head - normal Chest - clear to auscultation, no wheezes, rales or rhonchi, symmetric air entry Heart - S1 and S2 normal Abdomen - soft, nontender, nondistended, no masses or organomegaly Neurological - alert and oriented Musculoskeletal - no muscular tenderness noted Extremities - + pedal edema,dressing in both lower legs Skin - warm and dry Labs Laboratory Tests Test 09/07/17 19:30 09/08/17 06:00 09/09/17 04:35 White Blood Count 11.8 x10^3/uL (4.0-11.0) Red Blood Count 4.34 x10^6/uL (3.50-5.40) Hemoglobin 13.9 g/dL (12.0-15.5) Hematocrit 41.3 % (36.0-47.0) Mean Corpuscular Volume 95 fL (79-100) Mean Corpuscular Hemoglobin 32 pg (25-35) Mean Corpuscular Hemoglobin Concent 34 g/dL (31-37) Red Cell Distribution Width 15.4 % (11.5-14.5) Platelet Count 255 x10^3/uL (140-400) Neutrophils (%) (Auto) 74 % (31-73) Lymphocytes (%) (Auto) 18 % (24-48) Monocytes (%) (Auto) 5 % (0-9) Eosinophils (%) (Auto) 2 % (0-3) Basophils (%) (Auto) 1 % (0-3) Neutrophils # (Auto) 8.7 x10^3uL (1.8-7.7) Lymphocytes # (Auto) 2.2 x10^3/uL (1.0-4.8) Monocytes # (Auto) 0.6 x10^3/uL (0.0-1.1) Eosinophils # (Auto) 0.2 x10^3/uL (0.0-0.7) Basophils # (Auto) 0.1 x10^3/uL (0.0-0.2) Sodium Level 142 mmol/L (136-145) 141 mmol/L (136-145) Potassium Level 3.7 mmol/L (3.5-5.1) 3.3 mmol/L (3.5-5.1) Chloride Level 104 mmol/L (98-107) 105 mmol/L (98-107) Carbon Dioxide Level 31 mmol/L (21-32) 31 mmol/L (21-32) Anion Gap 7 (6-14) 5 (6-14) Blood Urea Nitrogen 8 mg/dL (7-20) 9 mg/dL (7-20) Creatinine 1.0 mg/dL (0.6-1.0) 0.8 mg/dL (0.6-1.0) Estimated GFR (Cockcroft-Gault) 69.7 90.1 BUN/Creatinine Ratio 8 (6-20) Glucose Level 114 mg/dL (70-99) 102 mg/dL (70-99) Calcium Level 8.8 mg/dL (8.5-10.1) 8.6 mg/dL (8.5-10.1) Total Bilirubin 0.5 mg/dL (0.2-1.0) Aspartate Amino Transf (AST/SGOT) 22 U/L (15-37) Alanine Aminotransferase (ALT/SGPT) 25 U/L (14-59) Alkaline Phosphatase 65 U/L (46-116) Total Protein 7.5 g/dL (6.4-8.2) Albumin 3.5 g/dL (3.4-5.0) Albumin/Globulin Ratio 0.9 (1.0-1.7) Urine Collection Type Unknown Urine Color Christina Urine Clarity Cloudy Urine pH 6.0 Urine Specific Barron[place] >=1.030 Urine Protein Negative mg/dL (NEG-TRACE) Urine Glucose (UA) Negative mg/dL (NEG) Urine Ketones (Stick) Trace mg/dL (NEG) Urine Blood Negative (NEG) Urine Nitrite Negative (NEG) Urine Bilirubin Small (NEG) Urine Urobilinogen Dipstick 1.0 mg/dL (0.2 mg/dL) Urine Leukocyte Esterase Negative (NEG) Urine RBC 0 /HPF (0-2) Urine WBC 0 /HPF (0-4) Urine Squamous Epithelial Cells Many /LPF Urine Bacteria Few /HPF (0-FEW) Urine Mucus Marked /LPF Laboratory Tests Test 09/09/17 04:35 Sodium Level 141 mmol/L (136-145) Potassium Level 3.3 mmol/L (3.5-5.1) Chloride Level 105 mmol/L (98-107) Carbon Dioxide Level 31 mmol/L (21-32) Anion Gap 5 (6-14) Blood Urea Nitrogen 9 mg/dL (7-20) Creatinine 0.8 mg/dL (0.6-1.0) Estimated GFR (Cockcroft-Gault) 90.1 Glucose Level 102 mg/dL (70-99) Calcium Level 8.6 mg/dL (8.5-10.1) Meds Current Medications Potassium Chloride (Klor-Con) 20 meq BIDAFTMEAL PO Last administered on t 09:55; Start 09/09/17 at 10:00 Assessment Assessment 1. 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 2. Chronic venous insufficiency with varicose veins. 3. Smoking tobacco user. 4. Hypertension. 5. Hyperlipidemia. 5.Hypokalemia K 3.3- replace. PLAN: At this time, was admitted to the hospital. Wound care consult was done. IV fentanyl for pain control, PT, OT compression wraps D/w patient and family. Plan Plan For more details regarding further plans, please refer to the orders. TOSIN HERNANDEZ MD Sep 09, 2017 11:40
[2017-09-09 15:00] VITALS: BP 152/84
[2017-09-09 19:00] VITALS: BP 168/83
[2017-09-09] MEDS: ATORVASTATIN CALCIUM 40 MG TABLET. PO SCH (22:32)
[2017-09-09] MEDS: LATANOPROST 0.005% OPHTH SOLUTION 2.5ML BOTTLE. OU SCH (22:33)
[2017-09-09] MEDS: ENOXAPARIN 40 MG/0.4 ML SYRINGE. SQ SCH (22:34)
[2017-09-09 23:00] VITALS: BP 119/67
[2017-09-10] MEDS: oxyCODONE/APAP 10/325 1 TAB TABLET PO PRN ×5 (02:32→21:47)
[2017-09-10 02:50] VITALS: BP 113/69
[2017-09-10 05:37] LABS: BASO # 0.1 x10^3/uL (0.0-0.2); BASO % 1 % (0-3); EOS % 6 % (0-3); HEMATOCRIT 37.7 % (36.0-47.0); HEMOGLOBIN 12.8 g/dL (12.0-15.5); LYMPH # 2.9 x10^3/uL (1.0-4.8); LYMPH % 32 % (24-48); MEAN CORPUSCULAR HEMOGLOBIN 32 pg (25-35); MEAN CORPUSCULAR HGB CONC 34 g/dL (31-37); MEAN CORPUSCULAR VOLUME 95 fL (79-100); MONO % 6 % (0-9); NEUT % 55 % (31-73); PLATELET COUNT 238 x10^3/uL (140-400); RED BLOOD COUNT 3.96 x10^6/uL (3.50-5.40); RED CELL DISTRIBUTION WIDTH 14.8 % (11.5-14.5); WHITE BLOOD COUNT 9.1 x10^3/uL (4.0-11.0)
[2017-09-10 06:07] LABS: CALCIUM 8.5 mg/dL (8.5-10.1); CREATININE 0.8 mg/dL (0.6-1.0); GFR 90.1; POTASSIUM 3.5 mmol/L (3.5-5.1)
[2017-09-10 07:00] VITALS: BP 143/91
[2017-09-10] MEDS: PANTOPRAZOLE 40 MG TABLET.DR. PO SCH (09:26)
[2017-09-10] MEDS: DOXYCYCLINE HYCLATE 100 MG TABLET PO SCH ×2 (09:26→21:47)
[2017-09-10] MEDS: POTASSIUM CHLORIDE 20 MEQ TABLET.ER. PO SCH ×2 (09:27→21:48)
[2017-09-10] MEDS: ASPIRIN CHEWABLE 81 MG TABLET. PO SCH (09:27)
[2017-09-10] MEDS: amLODIPine BESYLATE 5 MG TABLET PO SCH (09:27)
[2017-09-10 11:00] VITALS: BP 158/91
--- NOTE | 2017-09-10 11:12 | PDOC ---
IM PROGRESS NOTES- Subjective Subjective c/o pain in both legs. Objective Vitals Vital Signs Date Time Temp Pulse Resp B/P (MAP) Pulse Ox O2 Delivery O2 Flow Rate FiO2 09/10/17 09:28 93 Room Air 09/10/17 09:27 83 143/91 09/10/17 07:00 97.7 16 97.7 Physical Exam Physical Exam General appearance - alert,chronically ill appearing, and in no distress and oriented to person, place, and time Mental Status - alert, oriented to person, place, and time, affect appropriate to mood Head - normal Chest - clear to auscultation, no wheezes, rales or rhonchi, symmetric air entry Heart - S1 and S2 normal Abdomen - soft, nontender, nondistended, no masses or organomegaly Neurological - alert and oriented Musculoskeletal - no muscular tenderness noted Extremities - + pedal edema,dressing in both lower legs Skin - warm and dry Labs Laboratory Tests Test 09/09/17 04:35 09/10/17 04:15 Sodium Level 141 mmol/L (136-145) 140 mmol/L (136-145) Potassium Level 3.3 mmol/L (3.5-5.1) 3.5 mmol/L (3.5-5.1) Chloride Level 105 mmol/L (98-107) 104 mmol/L (98-107) Carbon Dioxide Level 31 mmol/L (21-32) 32 mmol/L (21-32) Anion Gap 5 (6-14) 4 (6-14) Blood Urea Nitrogen 9 mg/dL (7-20) 8 mg/dL (7-20) Creatinine 0.8 mg/dL (0.6-1.0) 0.8 mg/dL (0.6-1.0) Estimated GFR (Cockcroft-Gault) 90.1 90.1 Glucose Level 102 mg/dL (70-99) 128 mg/dL (70-99) Calcium Level 8.6 mg/dL (8.5-10.1) 8.5 mg/dL (8.5-10.1) White Blood Count 9.1 x10^3/uL (4.0-11.0) Red Blood Count 3.96 x10^6/uL (3.50-5.40) Hemoglobin 12.8 g/dL (12.0-15.5) Hematocrit 37.7 % (36.0-47.0) Mean Corpuscular Volume 95 fL (79-100) Mean Corpuscular Hemoglobin 32 pg (25-35) Mean Corpuscular Hemoglobin Concent 34 g/dL (31-37) Red Cell Distribution Width 14.8 % (11.5-14.5) Platelet Count 238 x10^3/uL (140-400) Neutrophils (%) (Auto) 55 % (31-73) Lymphocytes (%) (Auto) 32 % (24-48) Monocytes (%) (Auto) 6 % (0-9) Eosinophils (%) (Auto) 6 % (0-3) Basophils (%) (Auto) 1 % (0-3) Neutrophils # (Auto) 5.0 x10^3uL (1.8-7.7) Lymphocytes # (Auto) 2.9 x10^3/uL (1.0-4.8) Monocytes # (Auto) 0.6 x10^3/uL (0.0-1.1) Eosinophils # (Auto) 0.6 x10^3/uL (0.0-0.7) Basophils # (Auto) 0.1 x10^3/uL (0.0-0.2) Laboratory Tests Test 09/10/17 04:15 White Blood Count 9.1 x10^3/uL (4.0-11.0) Red Blood Count 3.96 x10^6/uL (3.50-5.40) Hemoglobin 12.8 g/dL (12.0-15.5) Hematocrit 37.7 % (36.0-47.0) Mean Corpuscular Volume 95 fL (79-100) Mean Corpuscular Hemoglobin 32 pg (25-35) Mean Corpuscular Hemoglobin Concent 34 g/dL (31-37) Red Cell Distribution Width 14.8 % (11.5-14.5) Platelet Count 238 x10^3/uL (140-400) Neutrophils (%) (Auto) 55 % (31-73) Lymphocytes (%) (Auto) 32 % (24-48) Monocytes (%) (Auto) 6 % (0-9) Eosinophils (%) (Auto) 6 % (0-3) Basophils (%) (Auto) 1 % (0-3) Neutrophils # (Auto) 5.0 x10^3uL (1.8-7.7) Lymphocytes # (Auto) 2.9 x10^3/uL (1.0-4.8) Monocytes # (Auto) 0.6 x10^3/uL (0.0-1.1) Eosinophils # (Auto) 0.6 x10^3/uL (0.0-0.7) Basophils # (Auto) 0.1 x10^3/uL (0.0-0.2) Sodium Level 140 mmol/L (136-145) Potassium Level 3.5 mmol/L (3.5-5.1) Chloride Level 104 mmol/L (98-107) Carbon Dioxide Level 32 mmol/L (21-32) Anion Gap 4 (6-14) Blood Urea Nitrogen 8 mg/dL (7-20) Creatinine 0.8 mg/dL (0.6-1.0) Estimated GFR (Cockcroft-Gault) 90.1 Glucose Level 128 mg/dL (70-99) Calcium Level 8.5 mg/dL (8.5-10.1) Assessment Assessment 1. 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 2. Chronic venous insufficiency with varicose veins. 3. Smoking tobacco user. 4. Hypertension. 5. Hyperlipidemia. 5.Hypokalemia K 3.3- replace. PLAN: At this time, was admitted to the hospital. Wound care consult was done. IV fentanyl for pain control, PT, OT compression wraps D/w patient and family. Has vomited this AM. Start Zofran. Plan Plan For more details regarding further plans, please refer to the orders. TOSIN HERNANDEZ MD Sep 10, 2017 11:12
[2017-09-10] MEDS: ONDANSETRON PF 4 MG/2 ML VIAL. IV PRN ×2 (11:22→17:56)
[2017-09-10] MEDS: fentaNYL PF VIAL 100 MCG/2 ML VIAL IV PRN (11:28)
[2017-09-10 15:00] VITALS: BP 139/81
[2017-09-10 19:00] VITALS: BP 146/79
[2017-09-10] MEDS: ATORVASTATIN CALCIUM 40 MG TABLET. PO SCH (21:47)
[2017-09-10] MEDS: LATANOPROST 0.005% OPHTH SOLUTION 2.5ML BOTTLE. OU SCH (21:47)
[2017-09-10] MEDS: ENOXAPARIN 40 MG/0.4 ML SYRINGE. SQ SCH (21:48)
[2017-09-10 23:00] VITALS: BP 145/75
[2017-09-11] MEDS: oxyCODONE/APAP 10/325 1 TAB TABLET PO PRN ×4 (01:52→22:23)
[2017-09-11 03:00] VITALS: BP 132/72
[2017-09-11] MEDS: PANTOPRAZOLE 40 MG TABLET.DR. PO SCH (06:02)
[2017-09-11 06:22] LABS: BASO % 1 % (0-3); EOS % 7 % (0-3); HEMATOCRIT 40.8 % (36.0-47.0); HEMOGLOBIN 13.9 g/dL (12.0-15.5); LYMPH # 2.4 x10^3/uL (1.0-4.8); LYMPH % 32 % (24-48); MEAN CORPUSCULAR HEMOGLOBIN 32 pg (25-35); MEAN CORPUSCULAR HGB CONC 34 g/dL (31-37); MEAN CORPUSCULAR VOLUME 95 fL (79-100); MONO % 6 % (0-9); NEUT % 54 % (31-73); PLATELET COUNT 256 x10^3/uL (140-400); RED BLOOD COUNT 4.29 x10^6/uL (3.50-5.40); RED CELL DISTRIBUTION WIDTH 15.1 % (11.5-14.5); WHITE BLOOD COUNT 7.3 x10^3/uL (4.0-11.0)
[2017-09-11 06:38] LABS: CALCIUM 8.9 mg/dL (8.5-10.1); CREATININE 0.8 mg/dL (0.6-1.0); GFR 90.1; POTASSIUM 3.5 mmol/L (3.5-5.1)
[2017-09-11 07:00] VITALS: BP 151/88
[2017-09-11] MEDS: amLODIPine BESYLATE 5 MG TABLET PO SCH (09:44)
[2017-09-11] MEDS: DOXYCYCLINE HYCLATE 100 MG TABLET PO SCH ×2 (09:44→22:23)
[2017-09-11] MEDS: POTASSIUM CHLORIDE 20 MEQ TABLET.ER. PO SCH ×2 (09:44→18:28)
[2017-09-11] MEDS: ASPIRIN CHEWABLE 81 MG TABLET. PO SCH (09:44)
[2017-09-11] MEDS: fentaNYL 25MCG/HR PATCH 1 PATCH PATCH.TD72 TD SCH (09:45)
--- NOTE | 2017-09-11 10:04 | PDOC ---
PROGRESS NOTES Subjective Subjective pt feels better today Objective Objective Vital Signs Date Time Temp Pulse Resp B/P (MAP) Pulse Ox O2 Delivery O2 Flow Rate FiO2 09/11/17 07:00 96.3 74 18 151/88 (109) 95 Room Air 96.3 Physical Exam Abdomen: Normal bowel sounds, Soft Heart: Regular rate, Normal S1, Normal S2 Extremities: No clubbing General: Alert HEENT: Atraumatic Lungs: Clear to auscultation MUSCULOSKELETAL: No deformity, No swelling Neck: Supple Neuro: Normal speech Psych/Mental Status: Mental status NL Skin: No rashes Assessment Assessment 1. 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 2. Chronic venous insufficiency with varicose veins. 3. Smoking tobacco user. 4. Hypertension. 5. Hyperlipidemia. 5.Hypokalemia K 3.3- replace. PLAN: . wbc down to normal. d/c home tomorrow. Wound care consult was done. patch fentanyl for pain control, PT, OT compression wraps D/w patient and family. Problems: Comment Review of Relevant I have reviewed the following items froy (where applicable) has been applied. Labs Laboratory Tests Test 09/11/17 03:35 09/11/17 05:35 Sodium Level 140 mmol/L (136-145) Potassium Level 3.5 mmol/L (3.5-5.1) Chloride Level 104 mmol/L (98-107) Carbon Dioxide Level 29 mmol/L (21-32) Anion Gap 7 (6-14) Blood Urea Nitrogen 6 mg/dL (7-20) Creatinine 0.8 mg/dL (0.6-1.0) Estimated GFR (Cockcroft-Gault) 90.1 Glucose Level 141 mg/dL (70-99) Calcium Level 8.9 mg/dL (8.5-10.1) White Blood Count 7.3 x10^3/uL (4.0-11.0) Red Blood Count 4.29 x10^6/uL (3.50-5.40) Hemoglobin 13.9 g/dL (12.0-15.5) Hematocrit 40.8 % (36.0-47.0) Mean Corpuscular Volume 95 fL (79-100) Mean Corpuscular Hemoglobin 32 pg (25-35) Mean Corpuscular Hemoglobin Concent 34 g/dL (31-37) Red Cell Distribution Width 15.1 % (11.5-14.5) Platelet Count 256 x10^3/uL (140-400) Neutrophils (%) (Auto) 54 % (31-73) Lymphocytes (%) (Auto) 32 % (24-48) Monocytes (%) (Auto) 6 % (0-9) Eosinophils (%) (Auto) 7 % (0-3) Basophils (%) (Auto) 1 % (0-3) Neutrophils # (Auto) 4.0 x10^3uL (1.8-7.7) Lymphocytes # (Auto) 2.4 x10^3/uL (1.0-4.8) Monocytes # (Auto) 0.4 x10^3/uL (0.0-1.1) Eosinophils # (Auto) 0.5 x10^3/uL (0.0-0.7) Basophils # (Auto) 0.0 x10^3/uL (0.0-0.2) Medications Current Medications Ondansetron HCl (Zofran) 4 mg PRN Q6HRS PRN IV NAUSEA/VOMITING Last administered on 09/10/17t 17:56; Start 09/10/17 at 11:00 Vitals/I & O Vital Sign - Last 24 Hours 09/10/17 09/10/17 09/10/17 09/10/17 11:00 11:28 11:55 13:48 Temp 97.5 97.5 Pulse 75 Resp 14 B/P (MAP) 158/91 (113) Pulse Ox 97 93 93 93 O2 Delivery Room Air Room Air Room Air Room Air 09/10/17 09/10/17 09/10/17 09/10/17 15:00 17:56 19:00 19:00 Temp 97.9 97.7 97.9 97.7 Pulse 77 75 Resp 16 16 B/P (MAP) 139/81 (100) 146/79 (101) Pulse Ox 98 93 93 97 O2 Delivery Room Air Room Air Room Air Room Air 09/10/17 09/10/17 09/11/17 09/11/17 20:00 23:00 03:00 07:00 Temp 97.9 97.9 96.3 97.9 97.9 96.3 Pulse 76 76 74 Resp 14 12 18 B/P (MAP) 145/75 (98) 132/72 (92) 151/88 (109) Pulse Ox 96 96 95 O2 Delivery Room Air Room Air Room Air Room Air ANIBAL HERNANDEZ MD Sep 11, 2017 10:04
[2017-09-11 11:03] VITALS: BP 136/83
[2017-09-11 15:00] VITALS: BP 138/71
[2017-09-11 19:25] VITALS: BP 115/71
[2017-09-11] MEDS: ENOXAPARIN 40 MG/0.4 ML SYRINGE. SQ SCH (22:00)
[2017-09-11] MEDS: LATANOPROST 0.005% OPHTH SOLUTION 2.5ML BOTTLE. OU SCH (22:22)
[2017-09-11] MEDS: ATORVASTATIN CALCIUM 40 MG TABLET. PO SCH (22:23)
[2017-09-11 23:50] VITALS: BP 119/71
[2017-09-12 03:00] VITALS: BP 122/70
[2017-09-12] MEDS: PANTOPRAZOLE 40 MG TABLET.DR. PO SCH (06:03)
[2017-09-12] MEDS: oxyCODONE/APAP 10/325 1 TAB TABLET PO PRN ×2 (06:04→12:30)
[2017-09-12 07:00] VITALS: BP 133/93
[2017-09-12] MEDS: POTASSIUM CHLORIDE 20 MEQ TABLET.ER. PO SCH (09:11)
[2017-09-12] MEDS: amLODIPine BESYLATE 5 MG TABLET PO SCH (09:12)
[2017-09-12] MEDS: ASPIRIN CHEWABLE 81 MG TABLET. PO SCH (09:12)
[2017-09-12] MEDS: DOXYCYCLINE HYCLATE 100 MG TABLET PO SCH (09:12)
[2017-09-12 11:00] VITALS: BP 130/82
--- NOTE | 2017-09-12 18:03 | PDOC ---
PROGRESS NOTES Subjective Subjective feeling better ,ready to go home Objective Objective Vital Signs Date Time Temp Pulse Resp B/P (MAP) Pulse Ox O2 Delivery O2 Flow Rate FiO2 09/12/17 13:30 Room Air 09/12/17 11:00 98.1 81 18 130/82 (98) 95 98.1 Intake and Output 09/13/17 07:00 Intake Total 480 ml Balance 480 ml Intake Oral 480 ml Physical Exam Abdomen: Normal bowel sounds, Soft Heart: Regular rate, Normal S1, Normal S2 Extremities: No clubbing General: Alert HEENT: Atraumatic Lungs: Clear to auscultation MUSCULOSKELETAL: No deformity, No swelling Neck: Supple Neuro: Normal speech Psych/Mental Status: Mental status NL Skin: No rashes COMMENT blisters popping on the dorsal foot Assessment Assessment 1. 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 2. Chronic venous insufficiency with varicose veins. 3. Smoking tobacco user. 4. Hypertension. 5. Hyperlipidemia. 5.Hypokalemia K 3.3- replace. PLAN: d/c home on doxycycline. wbc down to normal. d/c home today. Wound care consult was done. patch fentanyl for pain control, PT, OT compression wraps Problems: Comment Review of Relevant I have reviewed the following items froy (where applicable) has been applied. Vitals/I & O Vital Sign - Last 24 Hours 09/11/17 09/11/17 09/11/17 09/11/17 19:25 19:30 22:23 23:50 Temp 97.9 97.9 97.9 97.9 Pulse 93 84 Resp 18 16 B/P (MAP) 115/71 (86) 119/71 (87) Pulse Ox 95 95 98 O2 Delivery Room Air Room Air Room Air Room Air 09/12/17 09/12/17 09/12/17 09/12/17 03:00 06:04 07:00 07:10 Temp 98.2 97.6 98.2 97.6 Pulse 78 86 Resp 16 18 B/P (MAP) 122/70 (87) 133/93 (106) Pulse Ox 98 92 98 O2 Delivery Room Air Room Air 09/12/17 09/12/17 09/12/17 09/12/17 08:05 09:12 11:00 12:30 Temp 98.1 98.1 Pulse 86 81 Resp 18 B/P (MAP) 133/93 130/82 (98) Pulse Ox 95 O2 Delivery Room Air Room Air Room Air 09/12/17 13:30 O2 Delivery Room Air Intake and Output 09/12/17 09/12/17 09/13/17 15:00 23:00 07:00 Intake Total 480 ml Balance 480 ml ANIBAL HERNANDEZ MD Sep 12, 2017 18:03
== END 2017-09-12 19:49 | disposition home or self-care (01) | DRG 607 ==
LOC: 4 NORTH 17:19
PROVIDERS: ADMIT Internal Medicine; ATTEND Internal Medicine
DX: S90.822A Blister (nonthermal), left foot, initial encounter (principal); L97.519 Non-pressure chronic ulcer of other part of right foot with unspecified severity; L95.8 Other vasculitis limited to the skin; S90.821A Blister (nonthermal), right foot, initial encounter; L97.529 Non-pressure chronic ulcer of other part of left foot with unspecified severity; E78.5 Hyperlipidemia, unspecified; E87.6 Hypokalemia; I10 Essential (primary) hypertension; I87.2 Venous insufficiency (chronic) (peripheral); K21.9 Gastro-esophageal reflux disease without esophagitis; I83.93 Asymptomatic varicose veins of bilateral lower extremities; G43.909 Migraine, unspecified, not intractable, without status migrainosus; X58.XXXA Exposure to other specified factors, initial encounter; F17.210 Nicotine dependence, cigarettes, uncomplicated; Z90.710 Acquired absence of both cervix and uterus; Z82.49 Family history of ischemic heart disease and other diseases of the circulatory system; Z98.51 Tubal ligation status; Z79.891 Long term (current) use of opiate analgesic; Y93.89 Activity, other specified; Y92.89 Other specified places as the place of occurrence of the external cause; Y99.8 Other external cause status
CPT/HCPCS: 36415; 71010; 80048; 80053; 81001; 85025; 90686; 93005; J1650; J2405; J3010; 97110; 97116

== ENCOUNTER → 2017-11-03 | Outpatient (CLI) | payer OTHER | END | disposition home or self-care (01) | LOC: PMGWOUND 08:37 | PROVIDERS: ATTEND Preventive Medicine Undersea and Hyperbaric Medicine | DX: I87.2 Venous insufficiency (chronic) (peripheral) (principal); L97.321 Non-pressure chronic ulcer of left ankle limited to breakdown of skin; L97.811 Non-pressure chronic ulcer of other part of right lower leg limited to breakdown of skin; E78.5 Hyperlipidemia, unspecified; K21.9 Gastro-esophageal reflux disease without esophagitis; J44.9 Chronic obstructive pulmonary disease, unspecified; I10 Essential (primary) hypertension; F17.210 Nicotine dependence, cigarettes, uncomplicated; Z90.710 Acquired absence of both cervix and uterus | CPT/HCPCS: 29581; 97597 ==

== ENCOUNTER → 2017-11-08 | Outpatient (CLI) | payer OTHER | END | disposition home or self-care (01) | LOC: PMGWOUND 08:30 | PROVIDERS: ATTEND Preventive Medicine Undersea and Hyperbaric Medicine | DX: I87.2 Venous insufficiency (chronic) (peripheral) (principal); L97.321 Non-pressure chronic ulcer of left ankle limited to breakdown of skin; L97.811 Non-pressure chronic ulcer of other part of right lower leg limited to breakdown of skin; L97.821 Non-pressure chronic ulcer of other part of left lower leg limited to breakdown of skin; I10 Essential (primary) hypertension; J44.9 Chronic obstructive pulmonary disease, unspecified; K21.9 Gastro-esophageal reflux disease without esophagitis; E78.5 Hyperlipidemia, unspecified; F17.210 Nicotine dependence, cigarettes, uncomplicated; G43.109 Migraine with aura, not intractable, without status migrainosus; G89.29 Other chronic pain; G62.9 Polyneuropathy, unspecified; Z90.710 Acquired absence of both cervix and uterus; Z90.49 Acquired absence of other specified parts of digestive tract | CPT/HCPCS: 97597; 97598 ==

== ENCOUNTER → 2017-11-15 | Outpatient (CLI) | payer OTHER | END | disposition home or self-care (01) | LOC: PMGWOUND 08:22 | PROVIDERS: ATTEND Preventive Medicine Undersea and Hyperbaric Medicine | DX: L97.321 Non-pressure chronic ulcer of left ankle limited to breakdown of skin (principal); L97.811 Non-pressure chronic ulcer of other part of right lower leg limited to breakdown of skin; L97.821 Non-pressure chronic ulcer of other part of left lower leg limited to breakdown of skin; I87.2 Venous insufficiency (chronic) (peripheral); I10 Essential (primary) hypertension; J44.9 Chronic obstructive pulmonary disease, unspecified; K21.9 Gastro-esophageal reflux disease without esophagitis; E78.5 Hyperlipidemia, unspecified; F17.210 Nicotine dependence, cigarettes, uncomplicated; G43.109 Migraine with aura, not intractable, without status migrainosus; G89.29 Other chronic pain; G62.9 Polyneuropathy, unspecified; Z90.710 Acquired absence of both cervix and uterus; Z90.49 Acquired absence of other specified parts of digestive tract | CPT/HCPCS: 93923; 97597 ==

== ENCOUNTER → 2017-11-29 | Outpatient (CLI) | payer OTHER | END | disposition home or self-care (01) | LOC: PMGWOUND 08:29 | DX: E11.622 Type 2 diabetes mellitus with other skin ulcer (principal); L97.321 Non-pressure chronic ulcer of left ankle limited to breakdown of skin; L97.811 Non-pressure chronic ulcer of other part of right lower leg limited to breakdown of skin; K21.9 Gastro-esophageal reflux disease without esophagitis; E78.5 Hyperlipidemia, unspecified; E11.42 Type 2 diabetes mellitus with diabetic polyneuropathy; I87.2 Venous insufficiency (chronic) (peripheral); J44.9 Chronic obstructive pulmonary disease, unspecified; G89.29 Other chronic pain; I10 Essential (primary) hypertension; F17.210 Nicotine dependence, cigarettes, uncomplicated; Z90.710 Acquired absence of both cervix and uterus; Z90.49 Acquired absence of other specified parts of digestive tract | CPT/HCPCS: 97597 ==

== ENCOUNTER 2017-12-03 06:03 | Inpatient (IN) | payer OTHER ==
[2017-12-03 07:03] LABS: ADD MAN DIFF? NO
[2017-12-03 07:05] LABS: BASO # 0.1 x10^3/uL (0.0-0.2); BASO % 1 % (0-3); EOS # 0.2 x10^3/uL (0.0-0.7); EOS % 3 % (0-3); HEMATOCRIT 42.4 % (36.0-47.0); LYMPH # 3.6 x10^3/uL (1.0-4.8); LYMPH % 44 % (24-48); MEAN CORPUSCULAR HEMOGLOBIN 32 pg (25-35); MEAN CORPUSCULAR HGB CONC 33 g/dL (31-37); MEAN CORPUSCULAR VOLUME 98 fL (79-100); MONO # 0.7 x10^3/uL (0.0-1.1); MONO % 9 % (0-9); NEUT # 3.6 x10^3uL (1.8-7.7); NEUT % 44 % (31-73); PLATELET COUNT 268 x10^3/uL (140-400); RED BLOOD COUNT 4.34 x10^6/uL (3.50-5.40); RED CELL DISTRIBUTION WIDTH 13.3 % (11.5-14.5); WHITE BLOOD COUNT 8.2 x10^3/uL (4.0-11.0)
[2017-12-03] MEDS: ONDANSETRON PF 4 MG/2 ML VIAL. IV ×2 (07:21→22:19)
[2017-12-03] MEDS: IV NORMAL SALINE 1000ML BAG 1,000 ML IV (07:22)
[2017-12-03] MEDS: MORPHINE SULFATE 4 MG/ML DISP.SYRIN. IV/SQ ×2 (07:22→08:08)
[2017-12-03 07:36] LABS: BARBITURATES NEG (NEG); BENZODIAZEPINES NEG (NEG); CANNABINOIDS NEG (NEG); COCAINE NEG (NEG); METHADONE NEG (NEG); OPIATES POS (NEG); PHENCYCLIDINE NEG (NEG)
[2017-12-03 07:37] LABS: AMPHETAMINE/METHAMPHETAMINE NEG (NEG); ETHANOL, URINE POS (NEG)
[2017-12-03 07:51] LABS: ALBUMIN 3.9 g/dL (3.4-5.0); ALK PHOS 57 U/L (46-116); ALT (SGPT) 15 U/L (14-59); ANION GAP 12 (6-14); AST (SGOT) 12 U/L (15-37); BLOOD UREA NITROGEN 8 mg/dL (7-20); BUN/CREATININE RATIO 10 (6-20); CALCIUM 8.8 mg/dL (8.5-10.1); CARBON DIOXIDE 26 mmol/L (21-32); CHLORIDE 109 mmol/L (98-107); CREATININE 0.8 mg/dL (0.6-1.0); GFR 89.8; GLUCOSE 95 mg/dL (70-99); MAGNESIUM 2.3 mg/dL (1.8-2.4); POTASSIUM 3.5 mmol/L (3.5-5.1); SODIUM 147 mmol/L (136-145); TOTAL BILIRUBIN 0.2 mg/dL (0.2-1.0)
[2017-12-03 07:52] LABS: CKMB MASS < 0.5 ng/mL (0.0-3.6); CREATINE KINASE 41 U/L (26-192)
[2017-12-03] MEDS ORDERED: fentaNYL PF VIAL 100 MCG/2 ML VIAL IV (08:30)
[2017-12-03] MEDS ORDERED: POTASSIUM CHLORIDE 20 MEQ in IV DEXTROSE 5 %-0.45 % NACL 1,000 ML IV (10:00)
[2017-12-03] MEDS: fentaNYL PF VIAL 100 MCG/2 ML VIAL IV ×2 (11:37→20:18)
[2017-12-03] MEDS: amLODIPine BESYLATE 5 MG TABLET PO (11:41)
[2017-12-03] MEDS: ASPIRIN CHEWABLE 81 MG TABLET. PO (11:41)
[2017-12-03] MEDS: PANTOPRAZOLE 40 MG TABLET.DR. PO (11:41)
[2017-12-03] MEDS: oxyCODONE/APAP 10/325 1 TAB TABLET PO ×2 (11:41→20:18)
[2017-12-03] MEDS: POTASSIUM CL 20MEQ D5-0.45NACL 1,000 ML IV (11:44)
[2017-12-03] MEDS: LATANOPROST 0.005% OPHTH SOLUTION 2.5ML BOTTLE. OU (20:17)
[2017-12-03] MEDS: ATORVASTATIN CALCIUM 40 MG TABLET. PO (20:17)
[2017-12-04] MEDS: POTASSIUM CL 20MEQ D5-0.45NACL 1,000 ML IV ×2 (01:10→14:43)
[2017-12-04] MEDS: oxyCODONE/APAP 10/325 1 TAB TABLET PO ×6 (01:11→23:02)
[2017-12-04] MEDS: fentaNYL PF VIAL 100 MCG/2 ML VIAL IV ×6 (01:11→23:07)
[2017-12-04] MEDS: PANTOPRAZOLE 40 MG TABLET.DR. PO (05:42)
[2017-12-04 05:57] LABS: ADD MAN DIFF? NO
[2017-12-04 06:04] LABS: BASO # 0.1 x10^3/uL (0.0-0.2); BASO % 1 % (0-3); EOS # 0.3 x10^3/uL (0.0-0.7); EOS % 4 % (0-3); HEMATOCRIT 41.2 % (36.0-47.0); HEMOGLOBIN 13.4 g/dL (12.0-15.5); LYMPH # 3.1 x10^3/uL (1.0-4.8); LYMPH % 35 % (24-48); MEAN CORPUSCULAR HEMOGLOBIN 32 pg (25-35); MEAN CORPUSCULAR HGB CONC 33 g/dL (31-37); MEAN CORPUSCULAR VOLUME 99 fL (79-100); MONO # 0.7 x10^3/uL (0.0-1.1); MONO % 8 % (0-9); NEUT # 4.6 x10^3uL (1.8-7.7); NEUT % 52 % (31-73); PLATELET COUNT 265 x10^3/uL (140-400); RED BLOOD COUNT 4.16 x10^6/uL (3.50-5.40); RED CELL DISTRIBUTION WIDTH 13.3 % (11.5-14.5); WHITE BLOOD COUNT 8.9 x10^3/uL (4.0-11.0)
[2017-12-04 06:43] LABS: ANION GAP 9 (6-14); BLOOD UREA NITROGEN 9 mg/dL (7-20); CALCIUM 8.1 mg/dL (8.5-10.1); CARBON DIOXIDE 25 mmol/L (21-32); CHLORIDE 106 mmol/L (98-107); CREATININE 0.9 mg/dL (0.6-1.0); GFR 78.4; GLUCOSE 86 mg/dL (70-99); POTASSIUM 3.4 mmol/L (3.5-5.1); SODIUM 140 mmol/L (136-145)
[2017-12-04] MEDS: ASPIRIN CHEWABLE 81 MG TABLET. PO (09:06)
[2017-12-04] MEDS: amLODIPine BESYLATE 5 MG TABLET PO (09:06)
[2017-12-04] MEDS: HYDROXYCHLOROQUINE 200 MG TABLET PO (11:54)
[2017-12-04] MEDS: ATORVASTATIN CALCIUM 40 MG TABLET. PO (21:18)
[2017-12-04] MEDS: LATANOPROST 0.005% OPHTH SOLUTION 2.5ML BOTTLE. OU (21:19)
[2017-12-05] MEDS: POTASSIUM CL 20MEQ D5-0.45NACL 1,000 ML IV (02:59)
[2017-12-05] MEDS: oxyCODONE/APAP 10/325 1 TAB TABLET PO ×2 (03:00→08:25)
[2017-12-05] MEDS: fentaNYL PF VIAL 100 MCG/2 ML VIAL IV ×3 (03:01→11:07)
[2017-12-05] MEDS: ONDANSETRON PF 4 MG/2 ML VIAL. IV (04:33)
[2017-12-05] MEDS: amLODIPine BESYLATE 5 MG TABLET PO (08:25)
[2017-12-05] MEDS: HYDROXYCHLOROQUINE 200 MG TABLET PO (08:25)
[2017-12-05] MEDS: PANTOPRAZOLE 40 MG TABLET.DR. PO (08:25)
[2017-12-05] MEDS: ASPIRIN CHEWABLE 81 MG TABLET. PO (08:25)
[2017-12-05] MEDS: cloNIDine HCL 0.1 MG TABLET PO (10:01)
[2017-12-05] MEDS: CLOBETASOL EMOLLIENT 0.05% TOPICAL CREAM 15GM TUBE. TP (11:07)
== END 2017-12-05 14:12 | disposition home or self-care (01) | DRG 546 ==
LOC: ER 06:03 → 6 SOUTH 08:00
DX: I77.6 Arteritis, unspecified (principal); L97.919 Non-pressure chronic ulcer of unspecified part of right lower leg with unspecified severity; E87.0 Hyperosmolality and hypernatremia; L97.929 Non-pressure chronic ulcer of unspecified part of left lower leg with unspecified severity; I87.2 Venous insufficiency (chronic) (peripheral); L93.0 Discoid lupus erythematosus; E87.6 Hypokalemia; E78.00 Pure hypercholesterolemia, unspecified; E78.5 Hyperlipidemia, unspecified; G89.4 Chronic pain syndrome; I12.9 Hypertensive chronic kidney disease with stage 1 through stage 4 chronic kidney disease, or unspecified chronic kidney disease; N18.9 Chronic kidney disease, unspecified; J44.9 Chronic obstructive pulmonary disease, unspecified; K21.9 Gastro-esophageal reflux disease without esophagitis; Z82.49 Family history of ischemic heart disease and other diseases of the circulatory system; Z90.710 Acquired absence of both cervix and uterus; Z86.010 Personal history of colon polyps; Z98.51 Tubal ligation status; F17.210 Nicotine dependence, cigarettes, uncomplicated; F41.9 Anxiety disorder, unspecified; F32.9 Major depressive disorder, single episode, unspecified; K57.90 Diverticulosis of intestine, part unspecified, without perforation or abscess without bleeding
CPT/HCPCS: 36415; 80048; 80053; 80307; 82553; 83735; 85025; 93970; 96361; 96374; 96375; 99285-25; J2270; J2405; J3010; J7030

== ENCOUNTER → 2017-12-13 | Outpatient (CLI) | payer OTHER | END | disposition home or self-care (01) | LOC: PMGWOUND 08:36 | DX: I70.235 Atherosclerosis of native arteries of right leg with ulceration of other part of foot (principal); E11.621 Type 2 diabetes mellitus with foot ulcer; L97.511 Non-pressure chronic ulcer of other part of right foot limited to breakdown of skin; I70.245 Atherosclerosis of native arteries of left leg with ulceration of other part of foot; L97.521 Non-pressure chronic ulcer of other part of left foot limited to breakdown of skin; I87.313 Chronic venous hypertension (idiopathic) with ulcer of bilateral lower extremity; K21.9 Gastro-esophageal reflux disease without esophagitis; E78.5 Hyperlipidemia, unspecified; E11.42 Type 2 diabetes mellitus with diabetic polyneuropathy; I87.2 Venous insufficiency (chronic) (peripheral); J44.9 Chronic obstructive pulmonary disease, unspecified; G43.109 Migraine with aura, not intractable, without status migrainosus; G89.29 Other chronic pain; I10 Essential (primary) hypertension; F17.210 Nicotine dependence, cigarettes, uncomplicated; Z90.710 Acquired absence of both cervix and uterus; Z90.49 Acquired absence of other specified parts of digestive tract | CPT/HCPCS: 97597 ==

== ENCOUNTER → 2017-12-27 | Outpatient (CLI) | payer OTHER | END | disposition home or self-care (01) | LOC: PMGWOUND 08:47 | DX: E11.621 Type 2 diabetes mellitus with foot ulcer (principal); I70.235 Atherosclerosis of native arteries of right leg with ulceration of other part of foot; L97.511 Non-pressure chronic ulcer of other part of right foot limited to breakdown of skin; I70.245 Atherosclerosis of native arteries of left leg with ulceration of other part of foot; L97.521 Non-pressure chronic ulcer of other part of left foot limited to breakdown of skin; I87.313 Chronic venous hypertension (idiopathic) with ulcer of bilateral lower extremity; K21.9 Gastro-esophageal reflux disease without esophagitis; E78.5 Hyperlipidemia, unspecified; E11.42 Type 2 diabetes mellitus with diabetic polyneuropathy; J44.9 Chronic obstructive pulmonary disease, unspecified; G43.109 Migraine with aura, not intractable, without status migrainosus; G89.29 Other chronic pain; F17.210 Nicotine dependence, cigarettes, uncomplicated; Z90.710 Acquired absence of both cervix and uterus; Z90.49 Acquired absence of other specified parts of digestive tract | CPT/HCPCS: 99213 ==

== ENCOUNTER → 2018-03-13 | Outpatient (CLI) | payer OTHER | END | disposition home or self-care (01) | LOC: MAMMO 08:12 | DX: Z12.31 Encounter for screening mammogram for malignant neoplasm of breast (principal); I12.9 Hypertensive chronic kidney disease with stage 1 through stage 4 chronic kidney disease, or unspecified chronic kidney disease; E11.42 Type 2 diabetes mellitus with diabetic polyneuropathy; N18.9 Chronic kidney disease, unspecified | CPT/HCPCS: 77063; 77067 ==

== ENCOUNTER → 2018-03-13 | Day surgery (SDC) | payer OTHER ==
[~2018-03-13] MED LIST changes: -AMLO5TAB4 PO; -ASPI-630 PO; -B CO1TAB10 PO; -COLE1TAB PO; -DICY10CA53 PO; -EZET10TA18 PO; -FENO135C PO; -FENT1PAT15 TD; -FENT1PAT90 TP; -GABA600T91 PO; -HYDR-971 PO; -LATA2.5D3 EACHEYE; +LIDOCAINE 1% PF 2 ML VIAL. ID; -LIPITOR80 MG PO; -LOSA50TA6 PO; -MECL25TA3 PO; +MORPHINE SULFATE 4 MG/ML DISP.SYRIN. IV; -MUPI15CR8 TP; -OMEP40CA5 PO; +ONDANSETRON PF 4 MG/2 ML VIAL. IV; -OXYC-328 PO; -PANT40TA3 PO; -PROC5TAB14 PO; +PROCHLORPERAZINE 10 MG/2 ML VIAL. IV; +PROPOFOL 20 ML IV; -SUMA100T3 PO; -TOPI25TA52 PO; -TRIA1CAP PO; +fentaNYL PF VIAL 100 MCG/2 ML VIAL IV
[2018-03-13] MEDS: IV RINGERS,LACTATED 1000ML 1,000 ML IV (07:00)
== END | disposition home or self-care (01) ==
LOC: ENDOS 09:02
DX: K44.9 Diaphragmatic hernia without obstruction or gangrene (principal); K21.9 Gastro-esophageal reflux disease without esophagitis
CPT/HCPCS: 43235; J2704

== ENCOUNTER → 2018-05-29 | Outpatient (CLI) | payer OTHER | END | disposition home or self-care (01) | LOC: KCIC 09:27 | DX: M25.562 Pain in left knee (principal); I10 Essential (primary) hypertension; E11.42 Type 2 diabetes mellitus with diabetic polyneuropathy; E78.5 Hyperlipidemia, unspecified; E78.00 Pure hypercholesterolemia, unspecified; G43.109 Migraine with aura, not intractable, without status migrainosus; K21.9 Gastro-esophageal reflux disease without esophagitis | CPT/HCPCS: 73562 ==

== ENCOUNTER → 2018-09-28 | Outpatient (CLI) | payer OTHER ==
[2018-03-13 10:27] VITALS: BP 149/91
[~2018-09-28] MED LIST changes: +AMLO5TAB4 PO; +ASPI-630 PO; +B CO1TAB10 PO; +CLOB15CR2 TP; +COLE1TAB PO; +DICY10CA53 PO; +EZET10TA18 PO; +FENO135C PO; +FENT1PAT15 TD; +FENT1PAT90 TP; +GABA600T91 PO; +HYDR-971 PO; +HYDR200T5 PO; +LATA2.5D3 EACHEYE; -LIDOCAINE 1% PF 2 ML VIAL. ID; +LIPITOR80 MG PO; +LOSA50TA7 PO; +MECL25TA3 PO; -MORPHINE SULFATE 4 MG/ML DISP.SYRIN. IV; +MUPI15CR8 TP; +OMEP40CA5 PO; -ONDANSETRON PF 4 MG/2 ML VIAL. IV; +OXYC-328 PO; +PANT40TA3 PO; +PROC5TAB14 PO; -PROCHLORPERAZINE 10 MG/2 ML VIAL. IV; -PROPOFOL 20 ML IV; +SUMA100T3 PO; +TOPI25TA52 PO; +TRIA1CAP PO; -fentaNYL PF VIAL 100 MCG/2 ML VIAL IV
== END | disposition home or self-care (01) ==
LOC: PMGWOUND 08:14
PROVIDERS: ATTEND Preventive Medicine Undersea and Hyperbaric Medicine
DX: E11.622 Type 2 diabetes mellitus with other skin ulcer (principal); L97.321 Non-pressure chronic ulcer of left ankle limited to breakdown of skin; E11.42 Type 2 diabetes mellitus with diabetic polyneuropathy; E11.43 Type 2 diabetes mellitus with diabetic autonomic (poly)neuropathy; K31.84 Gastroparesis; I10 Essential (primary) hypertension; G89.29 Other chronic pain; J44.9 Chronic obstructive pulmonary disease, unspecified; E78.5 Hyperlipidemia, unspecified; E78.00 Pure hypercholesterolemia, unspecified; G43.109 Migraine with aura, not intractable, without status migrainosus; K21.9 Gastro-esophageal reflux disease without esophagitis
CPT/HCPCS: 87071; 87075; 97597

== ENCOUNTER → 2018-10-02 | Outpatient (CLI) | payer OTHER ==
[2018-03-13 10:27] VITALS: BP 149/91
[~2018-10-02] MED LIST changes: +HYDR-3164 PO; -HYDR-971 PO; -OXYC-328 PO; +OXYC1TAB22 PO
--- NOTE | 2018-10-02 13:27 | RAD ---
Left lower extremity arterial Doppler dated 10/02/2018. No comparison available. Clinical data indication: Left lower leg ulcer and pain. FINDINGS: Grayscale, color-flow and spectral waveform analysis performed. Diffuse atherosclerotic plaquing. There is triphasic flow within the common femoral artery, superficial femoral artery and popliteal artery extending to the tibial peroneal trunk. Biphasic flow within the mid to distal anterior tibial artery and dorsalis pedis. No high-grade stenosis. Incidental note is made of a popliteal cyst on the left, measuring up to 4.5 cm craniocaudal. IMPRESSION: 1. No evidence of hemodynamically significant arterial stenosis. 2. Biphasic flow within the calf arteries on the left suggesting mild to moderate distal small vessel disease. 3. Moderate size popliteal cyst. Electronically signed by: Erick Iverson MD (10/02/2018 1:24 PM) [id number]
== END | disposition home or self-care (01) ==
LOC: US 12:02
PROVIDERS: ATTEND Emergency Medicine Undersea and Hyperbaric Medicine
DX: L97.828 Non-pressure chronic ulcer of other part of left lower leg with other specified severity (principal); M71.22 Synovial cyst of popliteal space [Baker], left knee; I70.0 Atherosclerosis of aorta
CPT/HCPCS: 93926

== ENCOUNTER → 2018-10-05 | Outpatient (CLI) | payer OTHER ==
[2018-03-13 10:27] VITALS: BP 149/91
[~2018-10-05] MED LIST changes: -HYDR-3164 PO; +HYDR-971 PO; +OXYC-328 PO; -OXYC1TAB22 PO
--- NOTE | 2018-10-09 18:07 | PATHOLOGY ---
[facility] Accession Number: [id number] . 01 Material submitted: . LEFT MEDIAL LOWER LEG WOUND . 01 Clinician provided ICD-10: L97.321 L95.9 . 01 Clinical history: . Rule out lupus versus pyod. gang. Left lower leg wound . 02 Diagnosis: Skin, left lower leg, punch biopsy: - Fibrosing dermatitis consistent with chronic stasis dermatitis, ulcerated. There is no evidence of malignancy. (See comment) . ([facility]:isaiah;10/09/2018) 10/09/2018 . 02 Comment: Multiple levels of this punch biopsy of skin shows a completely ulcerated epidermal surface. The entire length and width of the biopsy is fibrotic with a patchy lymphohistiocytic inflammatory infiltrate as well as pigmented dermal macrophages which more than likely contain hemosiderin pigment. These changes are consistent with a fibrosing dermatitis of chronic stasis. There is no evidence within the current biopsy to support lupus erythematosus or pyoderma gangrenosum. Please correlate clinically. . ([facility]:valvino;10/09/2018) . 02 Electronically signed: . Purnima Campoverde MD, Pathologist NPI- [id number] . 01 Gross description: . The specimen is received in formalin, labeled "Elba Eaton L leg biopsy" and consists of a 0.3 x 0.3 x 0.3 cm nieves-brown skin punch which is inked and submitted intact in A1. ([facility]; 10/05/2018) SYU/SYU . 02 Pathologist provided ICD-10: L30.8, I87.2 . 02 CPT . 679097 Specimen Comment: A courtesy copy of this report has been sent to Specimen Comment: [phone], . Specimen Comment: Report sent to / DR HERNANDEZ Specimen Comment: A duplicate report has been generated due to demographic updates. Performed at: [address], [place] [id number] MD Lukasz Jasso MD Phone: [phone] Performed at: [facility] [address], [place] [id number] MD Purnima Campoverde MD Phone: [phone]
== END | disposition home or self-care (01) ==
LOC: PMGWOUND 08:15
PROVIDERS: ATTEND Preventive Medicine Undersea and Hyperbaric Medicine
DX: E11.622 Type 2 diabetes mellitus with other skin ulcer (principal); L97.321 Non-pressure chronic ulcer of left ankle limited to breakdown of skin; E11.43 Type 2 diabetes mellitus with diabetic autonomic (poly)neuropathy; K31.84 Gastroparesis; E11.42 Type 2 diabetes mellitus with diabetic polyneuropathy; I10 Essential (primary) hypertension; G89.29 Other chronic pain; J44.9 Chronic obstructive pulmonary disease, unspecified; E78.5 Hyperlipidemia, unspecified; E78.00 Pure hypercholesterolemia, unspecified; K21.9 Gastro-esophageal reflux disease without esophagitis; F17.200 Nicotine dependence, unspecified, uncomplicated; G43.709 Chronic migraine without aura, not intractable, without status migrainosus
CPT/HCPCS: 11100; 88305

== ENCOUNTER → 2018-10-12 | Outpatient (CLI) | payer OTHER ==
[2018-03-13 10:27] VITALS: BP 149/91
[~2018-10-12] MED LIST changes: +HYDR-3164 PO; -HYDR-971 PO
== END | disposition home or self-care (01) ==
LOC: PMGWOUND 08:50
PROVIDERS: ATTEND Preventive Medicine Undersea and Hyperbaric Medicine
DX: E11.622 Type 2 diabetes mellitus with other skin ulcer (principal); L97.321 Non-pressure chronic ulcer of left ankle limited to breakdown of skin; E11.43 Type 2 diabetes mellitus with diabetic autonomic (poly)neuropathy; K31.84 Gastroparesis; E11.42 Type 2 diabetes mellitus with diabetic polyneuropathy; I10 Essential (primary) hypertension; G89.29 Other chronic pain; J44.9 Chronic obstructive pulmonary disease, unspecified; E78.5 Hyperlipidemia, unspecified; K21.9 Gastro-esophageal reflux disease without esophagitis; E78.00 Pure hypercholesterolemia, unspecified; F17.200 Nicotine dependence, unspecified, uncomplicated; G43.709 Chronic migraine without aura, not intractable, without status migrainosus
CPT/HCPCS: 97597

== ENCOUNTER → 2018-10-26 | Outpatient (CLI) | payer OTHER ==
[2018-03-13 10:27] VITALS: BP 149/91
[~2018-10-26] MED LIST changes: +LOSA-73 PO; -LOSA50TA7 PO; -OXYC-328 PO; +OXYC1TAB22 PO
== END | disposition home or self-care (01) ==
LOC: PMGWOUND 08:49
PROVIDERS: ATTEND Preventive Medicine Undersea and Hyperbaric Medicine
DX: E11.622 Type 2 diabetes mellitus with other skin ulcer (principal); L97.321 Non-pressure chronic ulcer of left ankle limited to breakdown of skin; E11.43 Type 2 diabetes mellitus with diabetic autonomic (poly)neuropathy; K31.84 Gastroparesis; I10 Essential (primary) hypertension; G89.29 Other chronic pain; J44.9 Chronic obstructive pulmonary disease, unspecified; E78.00 Pure hypercholesterolemia, unspecified; E78.5 Hyperlipidemia, unspecified; K21.9 Gastro-esophageal reflux disease without esophagitis; F17.210 Nicotine dependence, cigarettes, uncomplicated; G43.109 Migraine with aura, not intractable, without status migrainosus
CPT/HCPCS: 99214; G0463

== ENCOUNTER → 2018-11-02 | Outpatient (CLI) | payer OTHER ==
[2018-03-13 10:27] VITALS: BP 149/91
== END | disposition home or self-care (01) ==
LOC: PMGWOUND 08:59
PROVIDERS: ATTEND Preventive Medicine Undersea and Hyperbaric Medicine
DX: E11.622 Type 2 diabetes mellitus with other skin ulcer (principal); L97.322 Non-pressure chronic ulcer of left ankle with fat layer exposed; E11.43 Type 2 diabetes mellitus with diabetic autonomic (poly)neuropathy; K31.84 Gastroparesis; L95.9 Vasculitis limited to the skin, unspecified; I10 Essential (primary) hypertension; G89.29 Other chronic pain; J44.9 Chronic obstructive pulmonary disease, unspecified; E78.00 Pure hypercholesterolemia, unspecified; E78.5 Hyperlipidemia, unspecified; K21.9 Gastro-esophageal reflux disease without esophagitis; G43.109 Migraine with aura, not intractable, without status migrainosus; E11.42 Type 2 diabetes mellitus with diabetic polyneuropathy; F17.210 Nicotine dependence, cigarettes, uncomplicated
CPT/HCPCS: 11042

== ENCOUNTER → 2018-11-05 | Outpatient (CLI) | payer OTHER ==
[2018-03-13 10:27] VITALS: BP 149/91
--- NOTE | 2018-11-05 08:44 | RAD ---
Examination: Left Lower Extremity Venous Doppler Ultrasound History: Nonhealing wound left lower leg Comparison: None Procedure: Ramsey scale, color flow 2D and spectal waveform analysis images are obtained with and without compression in the area of the common femoral vein, superficial femoral vein - femoral vein junction, main femoral vein (superficial femoral vein) and popliteal vein. Veins of the proximal calf are also imaged. Findings: There is normal duplex flow, color flow and compressibility of all visualized vein segments. No evidence of deep venous thrombus is present. Impression: No evidence of DVT in the left lower extremity venous system. Electronically signed by: Shane Martines MD (11/05/2018 8:40 AM) [place] [id number]
--- NOTE | 2018-11-05 10:22 | RAD ---
Venous reflux study in the left leg Clinical indications: Nonhealing wound of the left ankle. History of venous ablation of the right leg. FINDINGS: Duplex sonography of the lesser saphenous and greater saphenous veins of the left leg was performed including low scale evaluation and color flow and waveform spectral analysis. Both of these veins are patent and compressible. The caliber of the greater saphenous vein at the junction with the common femoral vein is 4.7 mm. The caliber of the proximal greater saphenous vein within the upper thigh is 4.8 mm. The caliber of the lesser saphenous vein is 2.6 mm. No reflux is noted within these veins. No perforators were noted. IMPRESSION: Lesser saphenous and greater saphenous veins of the left leg are patent without reflux. Electronically signed by: Navi Lopez MD (11/05/2018 10:18 AM) [facility]
== END | disposition home or self-care (01) ==
LOC: US 06:31
PROVIDERS: ATTEND Preventive Medicine Undersea and Hyperbaric Medicine
DX: L97.322 Non-pressure chronic ulcer of left ankle with fat layer exposed (principal)
CPT/HCPCS: 93971

== ENCOUNTER → 2018-11-09 | Outpatient (CLI) | payer OTHER ==
[2018-03-13 10:27] VITALS: BP 149/91
== END | disposition home or self-care (01) ==
LOC: PMGWOUND 08:44
PROVIDERS: ATTEND Preventive Medicine Undersea and Hyperbaric Medicine
DX: E11.622 Type 2 diabetes mellitus with other skin ulcer (principal); L97.321 Non-pressure chronic ulcer of left ankle limited to breakdown of skin; E11.43 Type 2 diabetes mellitus with diabetic autonomic (poly)neuropathy; I10 Essential (primary) hypertension; K31.84 Gastroparesis; E78.5 Hyperlipidemia, unspecified; G89.29 Other chronic pain; E78.00 Pure hypercholesterolemia, unspecified; J44.9 Chronic obstructive pulmonary disease, unspecified; K21.9 Gastro-esophageal reflux disease without esophagitis; G43.909 Migraine, unspecified, not intractable, without status migrainosus; F17.210 Nicotine dependence, cigarettes, uncomplicated
CPT/HCPCS: 97597

== ENCOUNTER → 2018-11-16 | Outpatient (CLI) | payer OTHER ==
[2018-03-13 10:27] VITALS: BP 149/91
== END | disposition home or self-care (01) ==
LOC: PMGWOUND 09:15
PROVIDERS: ATTEND Preventive Medicine Undersea and Hyperbaric Medicine
DX: E11.622 Type 2 diabetes mellitus with other skin ulcer (principal); L97.321 Non-pressure chronic ulcer of left ankle limited to breakdown of skin; E11.43 Type 2 diabetes mellitus with diabetic autonomic (poly)neuropathy; K31.84 Gastroparesis; I10 Essential (primary) hypertension; G89.29 Other chronic pain; E78.5 Hyperlipidemia, unspecified; E78.00 Pure hypercholesterolemia, unspecified; J44.9 Chronic obstructive pulmonary disease, unspecified; F17.210 Nicotine dependence, cigarettes, uncomplicated; K21.9 Gastro-esophageal reflux disease without esophagitis; G43.109 Migraine with aura, not intractable, without status migrainosus
CPT/HCPCS: 97597

== ENCOUNTER → 2018-11-30 | Outpatient (CLI) | payer OTHER ==
[2018-03-13 10:27] VITALS: BP 149/91
== END | disposition home or self-care (01) ==
LOC: PMGWOUND 09:28
PROVIDERS: ATTEND Preventive Medicine Undersea and Hyperbaric Medicine
DX: E11.622 Type 2 diabetes mellitus with other skin ulcer (principal); L97.321 Non-pressure chronic ulcer of left ankle limited to breakdown of skin; L97.821 Non-pressure chronic ulcer of other part of left lower leg limited to breakdown of skin; E11.43 Type 2 diabetes mellitus with diabetic autonomic (poly)neuropathy; K31.84 Gastroparesis; E11.51 Type 2 diabetes mellitus with diabetic peripheral angiopathy without gangrene; I87.2 Venous insufficiency (chronic) (peripheral); E78.5 Hyperlipidemia, unspecified; I10 Essential (primary) hypertension; G89.29 Other chronic pain; E78.00 Pure hypercholesterolemia, unspecified; J44.9 Chronic obstructive pulmonary disease, unspecified; K21.9 Gastro-esophageal reflux disease without esophagitis; F17.210 Nicotine dependence, cigarettes, uncomplicated; G40.909 Epilepsy, unspecified, not intractable, without status epilepticus
CPT/HCPCS: 87071; 87075; 97597

== ENCOUNTER → 2018-12-07 | Outpatient (CLI) | payer OTHER ==
[2018-03-13 10:27] VITALS: BP 149/91
== END | disposition home or self-care (01) ==
LOC: PMGWOUND 09:27
PROVIDERS: ATTEND Preventive Medicine Undersea and Hyperbaric Medicine
DX: E11.622 Type 2 diabetes mellitus with other skin ulcer (principal); L97.321 Non-pressure chronic ulcer of left ankle limited to breakdown of skin; L97.821 Non-pressure chronic ulcer of other part of left lower leg limited to breakdown of skin; E11.43 Type 2 diabetes mellitus with diabetic autonomic (poly)neuropathy; K31.84 Gastroparesis; E11.51 Type 2 diabetes mellitus with diabetic peripheral angiopathy without gangrene; I87.2 Venous insufficiency (chronic) (peripheral); E78.5 Hyperlipidemia, unspecified; G89.29 Other chronic pain; E78.00 Pure hypercholesterolemia, unspecified; K21.9 Gastro-esophageal reflux disease without esophagitis; J44.9 Chronic obstructive pulmonary disease, unspecified; G43.909 Migraine, unspecified, not intractable, without status migrainosus; G40.909 Epilepsy, unspecified, not intractable, without status epilepticus; F17.210 Nicotine dependence, cigarettes, uncomplicated
CPT/HCPCS: 97597

== ENCOUNTER → 2018-12-14 | Outpatient (CLI) | payer OTHER ==
[2018-03-13 10:27] VITALS: BP 149/91
[~2018-12-14] MED LIST changes: +AMIT25TA PO; +AMLO5TAB10 PO; +GABA600T7 PO; -PANT40TA3 PO; +PANT40TA77 PO; +RAMI10CA53 PO; +SUCR1TAB PO
== END | disposition home or self-care (01) ==
LOC: PMGWOUND 09:17
PROVIDERS: ATTEND Preventive Medicine Undersea and Hyperbaric Medicine
DX: E11.622 Type 2 diabetes mellitus with other skin ulcer (principal); L97.321 Non-pressure chronic ulcer of left ankle limited to breakdown of skin; E11.51 Type 2 diabetes mellitus with diabetic peripheral angiopathy without gangrene; E11.43 Type 2 diabetes mellitus with diabetic autonomic (poly)neuropathy; K31.84 Gastroparesis; I10 Essential (primary) hypertension; L95.9 Vasculitis limited to the skin, unspecified; G89.29 Other chronic pain; E78.5 Hyperlipidemia, unspecified; K21.9 Gastro-esophageal reflux disease without esophagitis; I87.2 Venous insufficiency (chronic) (peripheral); F17.210 Nicotine dependence, cigarettes, uncomplicated; J44.9 Chronic obstructive pulmonary disease, unspecified; E78.00 Pure hypercholesterolemia, unspecified; G40.909 Epilepsy, unspecified, not intractable, without status epilepticus; G43.909 Migraine, unspecified, not intractable, without status migrainosus
CPT/HCPCS: 97597

== ENCOUNTER → 2018-12-21 | Outpatient (CLI) | payer OTHER ==
[2018-03-13 10:27] VITALS: BP 149/91
[~2018-12-21] MED LIST changes: -AMIT25TA PO; -AMLO5TAB10 PO; -GABA600T7 PO; +PANT40TA3 PO; -PANT40TA77 PO; -RAMI10CA53 PO; -SUCR1TAB PO
== END | disposition home or self-care (01) ==
LOC: PMGWOUND 09:00
PROVIDERS: ATTEND Preventive Medicine Undersea and Hyperbaric Medicine
DX: E11.622 Type 2 diabetes mellitus with other skin ulcer (principal); L97.322 Non-pressure chronic ulcer of left ankle with fat layer exposed; E11.51 Type 2 diabetes mellitus with diabetic peripheral angiopathy without gangrene; E11.43 Type 2 diabetes mellitus with diabetic autonomic (poly)neuropathy; K31.84 Gastroparesis; I87.2 Venous insufficiency (chronic) (peripheral); G89.29 Other chronic pain; I10 Essential (primary) hypertension; L95.9 Vasculitis limited to the skin, unspecified; E78.5 Hyperlipidemia, unspecified; E78.00 Pure hypercholesterolemia, unspecified; J44.9 Chronic obstructive pulmonary disease, unspecified; K21.9 Gastro-esophageal reflux disease without esophagitis; F17.210 Nicotine dependence, cigarettes, uncomplicated; G43.909 Migraine, unspecified, not intractable, without status migrainosus
CPT/HCPCS: 97597

== ENCOUNTER → 2019-01-04 | Outpatient (CLI) | payer OTHER ==
[2018-03-13 10:27] VITALS: BP 149/91
[~2019-01-04] MED LIST changes: +AMIT25TA PO; +AMLO5TAB10 PO; +GABA600T7 PO; -PANT40TA3 PO; +PANT40TA77 PO; +RAMI10CA53 PO; +SUCR1TAB PO
== END | disposition home or self-care (01) ==
LOC: PMGWOUND 08:45
PROVIDERS: ATTEND Preventive Medicine Undersea and Hyperbaric Medicine
DX: E11.622 Type 2 diabetes mellitus with other skin ulcer (principal); L97.321 Non-pressure chronic ulcer of left ankle limited to breakdown of skin; E11.43 Type 2 diabetes mellitus with diabetic autonomic (poly)neuropathy; K31.84 Gastroparesis; E11.51 Type 2 diabetes mellitus with diabetic peripheral angiopathy without gangrene; I10 Essential (primary) hypertension; E78.5 Hyperlipidemia, unspecified; G89.29 Other chronic pain; I87.2 Venous insufficiency (chronic) (peripheral); E78.00 Pure hypercholesterolemia, unspecified; J44.9 Chronic obstructive pulmonary disease, unspecified; F17.210 Nicotine dependence, cigarettes, uncomplicated; K21.9 Gastro-esophageal reflux disease without esophagitis
CPT/HCPCS: 99214; G0463

== ENCOUNTER → 2019-01-30 | Outpatient (CLI) | payer OTHER ==
[2018-03-13 10:27] VITALS: BP 149/91
[~2019-01-30] MED LIST changes: +PANT40TA3 PO; -PANT40TA77 PO
--- NOTE | 2019-01-30 12:50 | CARD ---
MR#: [id number] Date of Study: 01/30/2019 Ordering Physician: EDYTA AZEVEDO, Referring Physician: EDYTA AZEVEDO Tech: Leslie Anthony RODRIGUE APPROVED REPORT EXAM: Two-dimensional and M-mode echocardiogram with Doppler and color Doppler. Other Information Quality : AverageHR: 91bpm Rhythm : NSR INDICATION Hypertension/HCVD 2D DIMENSIONS RVDd2.9 (2.9-3.5cm)Left Atrium(2D)2.8 (1.6-4.0cm) IVSd0.9 (0.7-1.1cm)Aortic Root(2D)3.0 (2.0-3.7cm) LVDd4.7 (3.9-5.9cm)LVOT Diameter2.2 (1.8-2.4cm) PWd1.1 (0.7-1.1cm)LVDs3.6 (2.5-4.0cm) FS (%) 24.5 %SV50.8 ml Aortic Valve AoV Peak Chirag.91.3cm/sAoV VTI18.1cm AO Peak GR.3.3mmHgLVOT Peak Chirag.69.7cm/s AO Mean GR.2mmHgAVA (VMAX)2.78cm2 BAYRON (VTI)2.80cm2 Mitral Valve MV E Hcpxyrmn66.2cm/sMV DECEL [id number] MV A Viuzpvdz33.9cm/sE/A Ratio1.0 MV A [id number] Pulmonary Valve PV Peak Huglbrle29.1cm/s Tricuspid Valve TR P. Xqgddfxi436ay/sRAP TIXEBIOE1niJa TR Peak Gr.17cwErICJC22smKk LEFT VENTRICLE The left ventricle is normal size. There is normal left ventricular wall thickness. Left ventricle sy stolic function is normal. The Ejection Fraction is 55-60%. There is normal LV segmental wall motion. Transmitral Doppler flow pattern is Grade II-pseudonormal filling dynamics. RIGHT VENTRICLE The right ventricle is normal size. There is normal right ventricular wall thickness. The right ventr icular systolic function is normal. ATRIA The left atrium size is normal. The right atrium size is normal. The interatrial septum is intact wit h no evidence for an atrial septal defect or patent foramen ovale as noted on 2-D or Doppler imaging. AORTIC VALVE The aortic valve is normal in structure and function. The aortic valve is trileaflet. Doppler and Col or Flow revealed no significant aortic regurgitation. There is no significant aortic valvular stenosi s. MITRAL VALVE The mitral valve is normal in structure and function. There is no evidence of mitral valve prolapse. There is no mitral valve stenosis. Doppler and Color-flow revealed trace mitral regurgitation. TRICUSPID VALVE The tricuspid valve is normal in structure and function. Doppler and Color Flow revealed no tricuspid valve regurgitation noted. There is no tricuspid valve prolapse or vegetation. There is no tricuspid valve stenosis. PULMONIC VALVE The pulmonic valve is not well visualized. Doppler and Color Flow revealed no pulmonic valvular regur gitation. There is no pulmonic valvular stenosis. GREAT VESSELS The aortic root is normal in size. The ascending aorta is normal in size. The IVC is normal in size a nd collapses >50% with inspiration. PERICARDIAL EFFUSION There is no evidence of significant pericardial effusion. Critical Notification Critical Value: No <Conclusion> The left ventricle is normal size. Left ventricle systolic function is normal. The Ejection Fraction is 55-60%. There is no significant aortic valvular stenosis. Doppler and Color Flow revealed no significant aortic regurgitation. Doppler and Color-flow revealed trace mitral regurgitation. Doppler and Color Flow revealed no tricuspid valve regurgitation noted. Signed by : Pascual Garrido MD Electronically Approved : 01/30/2019 12:49:41
== END | disposition home or self-care (01) ==
LOC: ECHO 08:14
PROVIDERS: ATTEND Internal Medicine Cardiovascular Disease
DX: I10 Essential (primary) hypertension (principal); E78.5 Hyperlipidemia, unspecified
CPT/HCPCS: 93306

== ENCOUNTER → 2019-02-12 | Outpatient (CLI) | payer OTHER ==
[2018-03-13 10:27] VITALS: BP 149/91
--- NOTE | 2019-02-12 10:05 | RAD ---
MR#: [id number] Date of Study: 02/12/2019 Ordering Physician: EDYTA AZEVEDO, Referring Physician: EDYTA AZEVEDO, Tech: nAton Min MBA, RDMS, RVT, RDCS, RTR APPROVED REPORT Patient Location : OUT-PATIENT Indications perf check/b/l ankle wounds Perforators Thigh Perforators Calf Perforators Right: cm up from medial heel 8cm back from the anterior border of tibia 3 diameter 1.8mm. Findings Limited evaluation for perforators only. At the level of the right ankle there is a reverse engineer at andrea roximately 8 cm up and 3 cm back. The reverse engineer measures approximately 1.8 mm. There is reflux noted . Critical Notification Critical Value: No <Conclusion> Limited exam for reverse engineer as noted above. Signed by : Young Hoffman, Electronically Approved : 02/12/2019 10:04:44
== END | disposition home or self-care (01) ==
LOC: US 07:50
PROVIDERS: ATTEND Internal Medicine Cardiovascular Disease
DX: S91.001A Unspecified open wound, right ankle, initial encounter (principal); S91.002A Unspecified open wound, left ankle, initial encounter; X58.XXXA Exposure to other specified factors, initial encounter; Y93.89 Activity, other specified; Y92.89 Other specified places as the place of occurrence of the external cause; Y99.8 Other external cause status
CPT/HCPCS: 93970

== ENCOUNTER → 2019-03-25 | Outpatient (CLI) | payer OTHER ==
[2018-03-13 10:27] VITALS: BP 149/91
[~2019-03-25] MED LIST changes: +LIDOCAINE 1%/EPI 1:100,000 50 ML, SODIUM BICARBONATE VIAL 5 MEQ in IV NORMAL SALINE 100... SQ STA
== END | disposition home or self-care (01) ==
LOC: VNUS 14:00
PROVIDERS: ATTEND Internal Medicine Cardiovascular Disease
DX: I87.2 Venous insufficiency (chronic) (peripheral) (principal); Z53.8 Procedure and treatment not carried out for other reasons
CPT/HCPCS: J3490; J7030

== ENCOUNTER → 2019-04-12 | Outpatient (CLI) | payer OTHER ==
[2018-03-13 10:27] VITALS: BP 149/91
[~2019-04-12] MED LIST changes: -LIDOCAINE 1%/EPI 1:100,000 50 ML, SODIUM BICARBONATE VIAL 5 MEQ in IV NORMAL SALINE 100... SQ STA
--- NOTE | 2019-04-12 12:55 | RAD ---
Two-view right knee dated 04/12/2019. Comparison made to 10/16/2018. Clinical data indication: Pain. Osteoarthritis. FINDINGS: 2 views right knee show normal bony alignment. No displaced fracture. No acute osseous or articular abnormality. No apparent joint effusion or loose body. No significant degenerative changes. IMPRESSION: No acute radiographic abnormality. Electronically signed by: Erick Iverson MD (04/12/2019 12:53 PM) [id number]
== END | disposition home or self-care (01) ==
LOC: RAD 12:10
PROVIDERS: ATTEND Anesthesiology Pain Medicine
DX: M17.11 Unilateral primary osteoarthritis, right knee (principal)
CPT/HCPCS: 73560

== ENCOUNTER → 2019-04-12 | Outpatient (CLI) | payer OTHER ==
[2018-03-13 10:27] VITALS: BP 149/91
--- NOTE | 2019-04-16 22:10 | RAD ---
MR#: [id number] Date of Study: 04/12/2019 Ordering Physician: EDYTA AZEVEDO, Referring Physician: EDYTA AZEVEDO, Tech: Tess Ceja RVT, TATI APPROVED REPORT Patient Location : OUT-PATIENT Indications Non-healing wounds Greater Saphenous Veins (GSV) Significant venous relux noted in the RIGHT GSV at the following levels : Superficial Femoral Junctio n, Proximal Thigh, Mid Thigh, Distal Thigh, Proximal Calf Findings Grayscale images of the right and left greater saphenous veins do not reveal any obvious evidence of thrombus. The right great saphenous vein measures approximately 6 mm and has a maximum reflux time of 1.5 secon ds. The left great saphenous vein measures 4 mm and does not show any evidence of reflux. The bilateral lesser saphenous veins were too small to be imaged well. Critical Notification Critical Value: No <Conclusion> 1. Positive for reflux in the right GSV 2. Bilateral lesser saphenous veins not well visualized. 3. Incidental finding of a left groin lymph node measuring approximately 1.2 cm in maximum diameter. Likely nonspecific, Clinical correlation recommended. Signed by : Young Hoffman, Electronically Approved : 04/16/2019 22:09:36
== END | disposition home or self-care (01) ==
LOC: US 12:21
PROVIDERS: ATTEND Internal Medicine Cardiovascular Disease
DX: I87.2 Venous insufficiency (chronic) (peripheral) (principal)
CPT/HCPCS: 93970

== ENCOUNTER → 2019-04-16 | Day surgery (SDC) | payer OTHER ==
[~2019-04-16] MED LIST changes: +IV RINGERS,LACTATED 1000ML 1,000 ML IV SCH; +LIDOCAINE 2% PF 5 ML VIAL. ONE; +PROPOFOL 40 ML IV ONE
[2019-04-16 08:52] VITALS: BP 170/107
--- NOTE | 2019-04-17 17:07 | PATHOLOGY ---
[facility] Accession Number: [id number] . 01 Material submitted: . PART A: duodenum bulb - DUODENUM BULB NODULE BIOPSIES PART B: stomach - RANDOM GASTRIC PART C: esophagus - DISTAL ESOPHAGUS BIOPSY. Modifiers: distal PART D: esophagus - PROXIMAL ESOPHAGUS BIOPSY. Modifiers: proximal . 01 Clinical history: . Dysphagia, GERD . 02 Diagnosis: A. Duodenal biopsies, duodenal bulb nodule: - Mild nonspecific duodenitis. . B. Random gastric biopsies: - Chronic gastritis, mild to moderate. . C. Esophageal biopsies, distal esophagus: - Segments of hyperplastic squamous esophageal mucosa consistent with reflux esophagitis. . D. Esophageal biopsies, proximal esophagus: - Segments of mildly hyperplastic squamous esophageal mucosa consistent with reflux esophagitis. (JPM:mckenna; 04/17/2019) QMS/04/17/2019 . 02 Comment: Sections of the duodenal bulb nodule biopsy reveal duodenal mucosa showing congestion and mild chronic inflammation with occasional admixed neutrophils. There are no sprue-like changes. There are no adenomatous changes or evidence of malignancy. . Sections of the random gastric biopsy reveal segments of gastric body and gastric antral mucosa. The gastric body mucosa shows congestion and mild superficial chronic inflammation. The gastric antral mucosa shows congestion and mild to moderate chronic inflammation. A properly controlled immunoperoxidase stain for Helicobacter is negative for Helicobacter organisms. . Sections of the proximal esophageal biopsy reveal segments of hyperplastic squamous esophageal mucosa showing focal intraepithelial inflammatory cells including a few intraepithelial eosinophils. The findings are consistent with reflux esophagitis. There is no evidence of Mccloud's change, dysplasia, or malignancy. . Sections of the proximal esophageal biopsy reveal segments of tangentially oriented, mildly hyperplastic squamous esophageal mucosa. Focally, there are a few intraepithelial inflammatory cells including an occasional eosinophil. The findings are consistent with reflux esophagitis. There is no evidence of Mccloud's change, dysplasia, or malignancy. (JPM:mckenna; 04/17/2019) . . Special stain performed: Immunoperoxidase stain for Helicobacter on B1. . 02 Electronically signed: . Franco Fajardo MD, Pathologist NPI- [id number] . 01 Gross description: . A. Received in formalin labeled "Renae, Elba, bulb nodule BX's," are 3 segments of nieves soft tissue measuring 0.5 x 0.5 x 0.3 cm in aggregate dimensions and ranging from 0.1 to 0.3 cm in maximum dimension. The specimen is submitted entirely in cassette A1. . B. Received in formalin labeled "Renae, Elba, random gastric BX's, rule out H. pylori," are 4 segments of nieves soft tissue measuring 1.3 x 0.8 x 0.3 cm in aggregate dimensions and ranging from 0.2 to 0.6 cm in maximum dimension. The specimen is submitted entirely in cassette B1. . C. Received in formalin labeled "Renae, Elba, distal esophagus BX," are 3 segments of nieves soft tissue measuring 0.5 x 0.5 x 0.1 cm in aggregate dimensions and ranging from 0.3 to 0.4 cm in maximum dimension. The specimen is submitted entirely in cassette C1. . D. Received in formalin labeled "Renae, Elba, proximal esophagus BX's," and additionally labeled on the requisition as "BX," are multiple minute segments of nieves soft tissue measuring 0.1 x 0.1 x 0.1 cm in aggregate dimensions. The specimen is filtered and entirely submitted in cassette D1. Due to the minute nature of the specimen, it may not survive processing. (TSD; 04/16/2019) TOB/TOB . 02 Pathologist provided ICD-10: K29.80, K29.50, K21.0 . 02 CPT . 320075, 041873, 034612, 796243, P38199 Specimen Comment: A courtesy copy of this report has been sent to Specimen Comment: [phone], . Specimen Comment: Report sent to Specimen Comment: Report sent to / DR HERNANDEZ Performed at: [address] [place] [id number] MD Lukasz Jasso MD Phone: [phone] Performed at: [address] [id number] MD Franco Fajardo MD Phone: [phone]
== END | disposition home or self-care (01) ==
LOC: SURG 06:38
PROVIDERS: ATTEND Internal Medicine
DX: K29.50 Unspecified chronic gastritis without bleeding (principal); K21.0 Gastro-esophageal reflux disease with esophagitis; K22.2 Esophageal obstruction; K44.9 Diaphragmatic hernia without obstruction or gangrene; E78.00 Pure hypercholesterolemia, unspecified; Z98.890 Other specified postprocedural states; Z72.0 Tobacco use; Z72.89 Other problems related to lifestyle; Z90.49 Acquired absence of other specified parts of digestive tract; Z90.710 Acquired absence of both cervix and uterus
CPT/HCPCS: 43239; 88305; 88342; J2001; J2704

== ENCOUNTER → 2019-05-31 | Outpatient (CLI) | payer OTHER ==
[2019-05-19 15:00] VITALS: BP 151/94
[~2019-05-31] MED LIST changes: -IV RINGERS,LACTATED 1000ML 1,000 ML IV SCH; -LIDOCAINE 2% PF 5 ML VIAL. ONE; -PANT40TA3 PO; +PANT40TA77 PO; -PROPOFOL 40 ML IV ONE
[2019-06-03 18:12] LABS: ANA INTERP Positive (.)
[2019-06-04 09:57] LABS: LUPUS ANTICOAGULANT SEE SEPARATE REPORT
[2019-06-04 09:58] LABS: CARDIOLIPIN ANTIBODIES SEE SEPARATE REPORT
== END | disposition home or self-care (01) ==
LOC: LAB 12:12
PROVIDERS: ATTEND Preventive Medicine Undersea and Hyperbaric Medicine
DX: L97.321 Non-pressure chronic ulcer of left ankle limited to breakdown of skin (principal); L95.9 Vasculitis limited to the skin, unspecified
CPT/HCPCS: 36415; 85610; 86038; 86147

== ENCOUNTER → 2020-01-16 | Outpatient (CLI) | payer MEDICARE, OTHER ==
[2019-05-19 15:00] VITALS: BP 151/94
[~2020-01-16] MED LIST changes: -EZET10TA18 PO; +EZET10TA20 PO; +MECL-75 PO; -MECL25TA3 PO; +OMEP40CA45 PO; -OMEP40CA5 PO
--- NOTE | 2020-01-16 16:59 | CARD ---
MR#: [id number] Date of Study: 01/16/2020 Ordering Physician: EDYTA AZEVEDO, Referring Physician: EDYTA AZEVEDO, Tech: APPROVED REPORT EXAM: Two-dimensional and M-mode echocardiogram with Doppler and color Doppler. Other Information Technically limited study due to body habitus INDICATION Non Healing Non Surgical Wound RISK FACTORS Hypertension Hyperlipidemia Smoking 2D DIMENSIONS RVDd2.7 (2.9-3.5cm)Left Atrium(2D)3.0 (1.6-4.0cm) IVSd1.0 (0.7-1.1cm)Aortic Root(2D)3.0 (2.0-3.7cm) LVDd4.9 (3.9-5.9cm)LVOT Diameter2.2 (1.8-2.4cm) PWd0.9 (0.7-1.1cm)LVDs3.0 (2.5-4.0cm) FS (%) 39.2 %SV78.0 ml LVEF(%)69.5 (>50%) Aortic Valve AoV Peak Chirag.108.8cm/sAoV VTI23.1cm AO Peak GR.4.7mmHgLVOT Peak Chirag.86.8cm/s LVOT VTI 17.99cmAO Mean GR.3mmHg BAYRON (VMAX)2.67vw0OCH (VTI)2.89cm2 Mitral Valve MV E Ejqdztkw23.4cm/sMV DECEL WEDT781re MV A Zbxrzutr16.9cm/sMV E Mean Gr.2mmHg MV NQO80juY/A Ratio1.0 MVA (PHT)3.54cm2 TDI E/Lateral E'9.0E/Medial E'9.1 Pulmonary Valve PV Peak Yidwsgtj19.6cm/sPV Peak Grad.2mmHg Tricuspid Valve TR P. Ofxjwxkm026ds/sRAP DJQWONCT3gpIe TR Peak Gr.47zuHrIISB93ucBs Pulmonary Vein S1 Juarywie59.2cm/sD2 Nznabjds43.2cm/s PVa yiyiwseo78woit LEFT VENTRICLE The left ventricle is normal size. There is normal left ventricular wall thickness. The left ventricu lar systolic function is normal and the ejection fraction is within normal range. The Ejection Fracti on is 50-55%. There is normal LV segmental wall motion. Transmitral Doppler flow pattern is Grade II- pseudonormal filling dynamics. RIGHT VENTRICLE The right ventricle is normal size. There is normal right ventricular wall thickness. The right ventr icular systolic function is normal. ATRIA The left atrium size is normal. The right atrium size is normal. The interatrial septum is intact wit h no evidence for an atrial septal defect or patent foramen ovale as noted on 2-D or Doppler imaging. AORTIC VALVE The aortic valve is normal in structure and function. Doppler and Color Flow revealed no significant aortic regurgitation. There is no significant aortic valvular stenosis. MITRAL VALVE The mitral valve is normal in structure and function. There is no evidence of mitral valve prolapse. There is no mitral valve stenosis. Doppler and Color-flow revealed trace mitral regurgitation. TRICUSPID VALVE The tricuspid valve is normal in structure and function. Doppler and Color Flow revealed trace tricus pid regurgitation with an estimated PAP of 36 mmHg. There is no tricuspid valve stenosis. PULMONIC VALVE The pulmonic valve is not well visualized. Doppler and Color Flow revealed trace pulmonic valvular re gurgitation. There is no pulmonic valvular stenosis. GREAT VESSELS The aortic root is normal in size. The ascending aorta is borderline dilated. The IVC is normal in si ze and collapses >50% with inspiration. PERICARDIAL EFFUSION There is no pleural effusion. There is no evidence of significant pericardial effusion. Critical Notification Critical Value: No <Conclusion> The left ventricular systolic function is normal and the ejection fraction is within normal range. Th e Ejection Fraction is 50-55%. There is normal LV segmental wall motion. Signed by : Young Hoffman, Electronically Approved : 01/16/2020 16:58:40
== END | disposition home or self-care (01) ==
LOC: ECHO 10:47
PROVIDERS: ATTEND Internal Medicine Cardiovascular Disease
DX: I77.810 Thoracic aortic ectasia (principal); T14.8XXA Other injury of unspecified body region, initial encounter; X58.XXXA Exposure to other specified factors, initial encounter; Y93.89 Activity, other specified; Y92.89 Other specified places as the place of occurrence of the external cause; Y99.8 Other external cause status
CPT/HCPCS: 93306

== ENCOUNTER → 2020-02-12 | Outpatient (CLI) | payer MEDICARE, OTHER ==
[2019-05-19 15:00] VITALS: BP 151/94
[~2020-02-12] MED LIST changes: +REGADENOSON 0.4 MG/5 ML DISP.SYRIN. IV ONE
--- NOTE | 2020-02-12 12:44 | RAD ---
MR#: [id number] Date of Study: 02/12/2020 Ordering Physician: EDYTA AZEVEDO, Referring Physician: NATALY CHINO Tech: SANTA Morris, ARRT (R) (N) APPROVED REPORT Test Type: Pharmacological Stress Nurse/Tech: Shara White RN Test Indications: Chest Pain Cardiac History: Hypertension, smoker Medications: See Electronic Medical Record Medical History: See Electronic Medical Record Resting ECG: SR with 1 degree AV Block Resting Heart Rate: 79 bpm Resting Blood Pressure: 141/84mmHg Pretest Chest Pain: No chest pain Nurse/Tech Notes S1 S2 WNL, Lungs CTA Consent: The procedure was explained to the patient in lay terms. Informed consent was witnessed. Taran eout was entered into [employer]. History and Stress Test performed by [facility] Details Pharmacologic stress testing was performed using 0.4mg per 5ml of regadenoson given intravenously ove r 7-10 seconds. Stress Symptoms Dyspnea, abdominal cramping and burning. POST EXERCISE Reason for Termination: Infusion complete Max HR: 105 bpm Max Blood Pressure: 144/87mmHg Blood Pressure response to exercise: Normal blood pressure response during stress. Heart Rate response to exercise: WNL Chest Pain: No. Arrhythmia: No. ST Change: No. INTERPRETATION Stress EKG Conclusion: No evidence of stress induced EKG changes. Imaging Protocol IMAGE PROTOCOL: Rest Tc-99m/stress Tc-99m 1 day Rest: Stress: Viability: Radiopharm.Tc99m DcegcwcfcLn68z Sestamibi Csbj68jYc 31.9mCi Img Date 02/12/2020 02/12/2020 Inj-Img Pxsz76han. 60min. Rest Admin Site:IV - Right HandAdministrator:RT Matias (R)(N) Stress Admin Site: IV - Right HandAdministrator: [facility] STRESS DATA End Diast. Vol.83.0mlAv. Heart Rate91.0bpm End Syst. Vol.25.0mlCO Index BSA0.0L/min Myocardial Uxjg492.5gEject. Nhtnwfge61.5% Stress Rates Pk. Fill Rate2.94EDV/secLVtime Pk. Fill 177.34msec Pk. Empty Rate3.84ESV/secLVtime Pk. Zjmil520.19msec /3 Pk. Fill1.09EDV/sec Stress Scores Regional WT1.50Summed WT16.00 Regional WM0.00Summed WM5.50 The rest and stress images show normal perfusion, normal contraction and thickening. LV Perf. Quant 17 Seg. SSS1.00 17 Seg. SRS0.00 17 Seg. SDS1.00 Stress Defect Extent (% LAD)0.00Rest Defect Extent (% LAD)0.00Rev. Defect Extent (% LAD)0.00 Stress Defect Extent (% LCX) 0.00Rest Defect Extent (% LCX)0.00Rev. Defect Extent (% LCX)0.00 Stress Defect Extent (% RCA)0.00Rest Defect Extent (% RCA)0.00Rev. Defect Extent (% RCA)0.00 Stress Defect Extent (% MAYRA)0.00Rest Defect Extent (% MAYRA)0.00Rev. Defect Extent (% MAYRA)0.00 Other Information Quality:Good Risk Assessment: Low Risk Conclusion 1. No evidence of EKG changes with stress testing. 2. Normal perfusion at stress/rest. 3. Low risk study. 4. EF > 60%. Signed by : Young Hoffman, Electronically Approved : 02/12/2020 12:43:54
== END | disposition home or self-care (01) ==
LOC: NM 07:34
PROVIDERS: ATTEND Internal Medicine Cardiovascular Disease
DX: R07.9 Chest pain, unspecified (principal)
CPT/HCPCS: 78452; 93017; A9500; J2785

== ENCOUNTER → 2020-12-22 | Outpatient (CLI) | payer MEDICARE, OTHER ==
[2020-11-05 11:06] VITALS: BP 106/72
[~2020-12-22] MED LIST changes: +ACET325T9 PO; +AMLO-186 PO; -AMLO5TAB10 PO; +ASPI325T8 PO; +ATOR40TA59 PO; -CLOB15CR2 TP; +CLOB15CR27 TP; +CLOP75TA PO; +METO25TA4 PO; -OMEP40CA45 PO; +OMEP40CA7 PO; -REGADENOSON 0.4 MG/5 ML DISP.SYRIN. IV ONE
--- NOTE | 2020-12-23 11:58 | RAD ---
EXAMINATION: MG BILAT SCREEN+AISLINN CLINICAL HISTORY: Routine screening TECHNIQUE: Digital craniocaudal and mediolateral oblique views of the bilateral breasts obtained with 3-D tomosynthesis. COMPARISON: 03/13/2018, 01/29/2015 BREAST COMPOSITION: The breasts are heterogeneously dense, which may obscure small masses. FINDINGS: Grouped indeterminate calcifications right lower inner quadrant posterior third at 4:00 position 11.0 -11.5 cm from the nipple. No evidence of suspicious calcifications in the left breast. No evidence of suspicious mass or areas of architectural distortion bilaterally. IMPRESSION: Grouped indeterminate calcifications right lower inner quadrant. BI-RADS ASSESSMENT: Category 0: Incomplete - Need Additional Imaging Evaluation and/or Prior Mammograms for Comparison RECOMMENDATION: Recommend further evaluation with spot compression magnification views of the right breast. PQRS compliance statement - Patient information was entered into a reminder system with a target due date for the next mammogram. "Our facility is accredited by the [employer] Mammography Program." Electronically signed by: Dangelo Howard DO (12/23/2020 11:55 AM) [id number]
== END ==
LOC: MAMMO 15:04
PROVIDERS: ATTEND Internal Medicine
DX: Z12.31 Encounter for screening mammogram for malignant neoplasm of breast (principal)
CPT/HCPCS: 77063; 77067

== ENCOUNTER → 2020-12-29 | Outpatient (CLI) | payer MEDICARE, OTHER ==
[2020-11-05 11:06] VITALS: BP 106/72
--- NOTE | 2020-12-29 17:38 | RAD ---
Examination: Right diagnostic mammogram INDICATION: Screening recall for calcifications in the posterior lower inner right breast COMPARISON: 12/22/2020, 03/13/2018 TECHNIQUE: Magnification views of the right breast in the CC and lateral projections FINDINGS: The calcifications recalled from screening show a tram track configuration in the CC projection and c ould represent vascular calcifications in a vascular loop. There are considered probably benign and r ecommended for six-month follow-up mammogram. IMPRESSION: Probably benign calcifications in the posterior lower inner right breast. BI-RADS Category 3 Probably benign Recommend 6 month follow-up right diagnostic mammogram with magnification views in the CC and true la teral projections. Electronically signed by: Bradley Robles MD (12/29/2020 5:36 PM) [id number]
== END ==
LOC: MAMMO 10:07
PROVIDERS: ATTEND Internal Medicine
DX: R92.1 Mammographic calcification found on diagnostic imaging of breast (principal)
CPT/HCPCS: 77065

== ENCOUNTER → 2020-12-31 | Outpatient (CLI) | payer MEDICARE, OTHER ==
[2020-11-05 11:06] VITALS: BP 106/72
--- NOTE | 2020-12-31 17:31 | RAD ---
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 / Spl. Instructions: / History : COMPARISON: May 2019 IMPRESSION: Single frontal view of the bilateral knees are obtained. Mild medial joint space narrowing at the peter ateral knees which could be secondary to mild degenerative changes. Electronically signed by: Julián Xie MD (12/31/2020 5:28 PM) [id number]
== END ==
LOC: RAD 15:51
PROVIDERS: ATTEND Physical Medicine & Rehabilitation
DX: M17.0 Bilateral primary osteoarthritis of knee (principal)
CPT/HCPCS: 73565

== ENCOUNTER → 2021-03-26 | Outpatient (CLI) | payer MEDICARE, OTHER ==
[2020-11-05 11:06] VITALS: BP 106/72
--- NOTE | 2021-03-26 16:23 | RAD ---
MRI of the cervical spine without contrast CLINICAL HISTORY: Left cervical radiculopathy. TECHNIQUE: Unenhanced T1-weighted, T2-weighted and inversion recovery sagittal and gradient echo and T2-weighted axial images of the cervical spine were obtained. FINDINGS: There is straightening of the normal cervical lordosis. Degenerative signal changes are see n involving all of the disks of the cervical spine. Degenerative signal changes are seen within the m arrow surrounding these discs. The cervical spinal cord is normal morphology, position, and signal ch aracteristics. On the axial images throughout the cervical disc spaces, mild to moderate degenerative changes are se en consisting of minimal to mild generalized disc bulges and degenerative changes involving the uncov ertebral and facet joints. These findings do not result in significant central spinal canal or neural foraminal stenosis at any level. IMPRESSION: Relatively mild degenerative changes are seen involving the cervical spine as discussed a octavio. These findings do not result in significant central spinal canal or neural foraminal stenosis. Electronically signed by: Gilberto Rodriguez MD (03/26/2021 4:21 PM) [id number]
== END ==
LOC: MRI 11:06
PROVIDERS: ATTEND Orthopaedic Surgery
DX: M47.22 Other spondylosis with radiculopathy, cervical region (principal)
CPT/HCPCS: 72141

== ENCOUNTER → 2021-05-19 | Outpatient (CLI) | payer MEDICARE, OTHER ==
[2020-11-05 11:06] VITALS: BP 106/72
[~2021-05-19] MED LIST changes: +HYDR-2765 PO; +ISOS30TA68 PO; +LISI20TA18 PO; +METO50TA6 PO; +ZINC50TA39 PO
== END ==
LOC: LAB 09:59
PROVIDERS: ATTEND Orthopaedic Surgery
DX: Z01.812 Encounter for preprocedural laboratory examination (principal); Z20.822 Contact with and (suspected) exposure to COVID-19; R22.32 Localized swelling, mass and lump, left upper limb; G56.22 Lesion of ulnar nerve, left upper limb
CPT/HCPCS: U0003; U0005

== ENCOUNTER 2021-05-21 08:02 | Day surgery (SDC) | payer MEDICARE, OTHER ==
[~2021-05-21] VITALS: Ht 175.3 cm; Wt 101.0 kg
[~2021-05-21 08:02] MED LIST changes: -HYDR-2765 PO; +HYDROmorphone 2 MG/ML VIAL IVP PRN; +IV RINGERS,LACTATED 1000ML 1,000 ML IV SCH; +PROCHLORPERAZINE 10 MG/2 ML VIAL. IVP PRN; +ceFAZolin 2GM PREMIX 2 GM/50 ML BAG IV ONE; +fentaNYL PF VIAL 100 MCG/2 ML VIAL IVP PRN
[2021-05-21] MEDS ORDERED: BUPIVACAINE MPF 0.25% 30 ML VIAL. ONE (09:29)
[2021-05-21] MEDS ORDERED: MIDAZOLAM HCL/PF 2 MG/2 ML VIAL. ONE (09:32)
[2021-05-21] MEDS ORDERED: fentaNYL PF VIAL 100 MCG/2 ML VIAL ONE (09:32)
[2021-05-21] MEDS ORDERED: HYDR-2765 PO (09:46)
--- NOTE | 2021-05-21 09:48 | DISCH ---
DISCHARGE INSTRUCTIONS Condition on Discharge Condition on Discharge: Stable Activity After Discharge Activity Instructions for Disc: Other, see below (Maintain full movement of elbow to keep nerve from scarring, may do fine motor use such as eating writing and typing) Lifting Instructions after Dis: No heavy lifting, No pulling or pushing Exercise Instruction after Dis: Progress as tolerated Driving Instructions after Dis: Do not drive today Weight Bearing Status after Di: As tolerated Diet after Discharge Diet after Discharge: Cardiac, Regular Wound Incision Care Wound/Incision Care: Change dressing (May remove dressing in 4 days, keep dry in shower and report any drainage redness or other concerns) Contacting the DRRomero after DC Call your doctor for: Concerns you may have Follow-Up Follow up with: Dr. Franco or Horacio 10 days Treatment/Equipment after DC Adaptive Equipment Issued: None CLAIRE FRANCO MD May 21, 2021 09:48
[2021-05-21] MEDS ORDERED: SEVOFLURANE 61 TO 120 MINUTES. IH ONE (10:03)
[2021-05-21] MEDS ORDERED: LIDOCAINE 2% PF 5 ML VIAL. ONE (10:03)
[2021-05-21] MEDS ORDERED: PROPOFOL 10 MG/ML (20ML) VIAL. IV ONE (10:03)
[2021-05-21] MEDS ORDERED: BUPIVACAINE-EPI 0.25% 30 ML VIAL KIT. INJ ONE (10:06)
[2021-05-21] MEDS ORDERED: ONDANSETRON PF 4 MG/2 ML VIAL. ONE (10:07)
[2021-05-21] MEDS ORDERED: DEXAMETHASONE SOD PHOS 4 MG/ML VIAL ONE (10:07)
[2021-05-21] MEDS ORDERED: MORPHINE SULFATE 2 MG/ML INJ. ONE (11:04)
[2021-05-21] MEDS ORDERED: PROCHLORPERAZINE 10 MG/2 ML VIAL. ONE (11:04)
[2021-05-21] MEDS: MORPHINE SULFATE 2 MG/ML INJ. IVP PRN ×2 (11:09→11:19)
[2021-05-21 11:13] VITALS: BP 152/91
[2021-05-21] MEDS ORDERED: HYDROcodone/APAP 7.5/325MG 1 TAB TABLET PO ONE (11:30)
--- NOTE | 2021-05-21 13:13 | PDOC4 ---
Operative Note Operative Note Date of surgery: 05/21/2021 Preoperative diagnosis: Left cubital tunnel syndrome, left hand mass Postoperative diagnosis: Same with moderate compression of the ulnar nerve at the cubital tunnel, left hand mass consistent with lipoma Operative procedure: Left cubital tunnel release, excision left hand mass consistent with lipoma Surgeon: Joan Anesthesia: General Estimated blood loss: 10 cc Complications: None Specimens: Fatty tissue to pathology Operative indications: Please see my preoperative clinic note for detailed operative indications and note that I had covered with her again today that the reason for the operation on her elbow is to take the pressure off the ulnar nerve. It may take an extended period of time for the nerve to come back as well as it does recover and complete recovery may not be possible. We talked about the possibility of infection nerve or blood vessel damage medical or other anesthetic complications among others and the nerve decompression and also associated with the planned exploration and removal of the left hand mass. I also went over with her specifically that I cannot guarantee that any pain associated with the mass will go away. She acknowledges this and wants to proceed with surgical evaluation and treatment Operative text: Patient was identified procedure verified patient placed in the supine position on the operating table. After adequate amounts of general anesthesia were administered the left upper extremity was prepped and draped in standard sterile fashion and after timeout was performed patient procedure identified and verified the left upper extremity was exsanguinated by Esmarch bandage tourniquet inflated to 250 mmHg a curvilinear incision was made over the medial elbow dissection carried out to the cubital tunnel which was carefully opened and with protection of the ulnar nerve cubital tunnel release was carried out from the intermuscular septum throughout the course of the cubital tunnel al so releasing the flexor pronator musculature where the ulnar nerve dives in and decompressed the moderate compression noted mainly at the cubital tunnel itself. Elbow motion revealed no subluxation. Thorough irrigation carried out normal saline solution subcutaneous closure with buried Vicryl suture skin closure with nylon suture. Attention was then turned to the left hand mass in between the index and long finger webspace. A longitudinal incision was made and the mass appeared to be superficial and consistent with fatty tissue with provisional diagnosis of a lipoma. There was no deep involvement noted the extensor tendons and retinaculum underlying were intact bleeding points controlled by electrocautery through irrigation carried out normal saline solution and closure accomplished with buried Vicryl suture and skin closure with nylon suture. Sterile soft dressings were applied fingers were noted to be warm pink following deflation of tourniquet patient was returned to recovery room in stable condition having tolerated procedure well CLAIRE HAM MD May 21, 2021 13:12
--- NOTE | 2021-05-25 14:10 | PATHOLOGY ---
[facility] Accession Number: [id number] . 01 Material submitted: . hand - LIPOMA. Modifiers: dorsal, left . 01 Clinical history: . DORSAL HAND MASS L CUBITAL TUNNEL RELEASE EXCISION DORSAL HAND MASS, LEFT . . 02 Diagnosis: Segments of fibroadipose tissue, dorsal hand mass: - Lipoma. (JPM:pit; 05/25/2021) QTP 05/25/2021 0713 Local . 02 Electronically signed: . Franco Fajardo MD, Pathologist NPI- [id number] . 01 Gross description: . Received in formalin labeled "Renae, Elba, lipoma" are multiple fragments of nieves-yellow lobulated fibroadipose tissue measuring in aggregate 2.8 x 2.8 x 0.9 cm. [employer]iple [employer]gienist tissue is submitted in cassette A1. ([facility]; 05/22/2021) [facility] 05/22/2021 1119 Local . 02 Pathologist provided ICD-10: D17.39 . 02 CPT . 116713 Specimen Comment: A courtesy copy of this report has been sent to [phone] Specimen Comment: [id number] Specimen Comment: Report sent to / DR HERNANDEZ Performed at: 01 [facility] [address], [place], [place] [id number] MD Rufino Vieyra MD Phone: [phone] Performed at: 02 [facility] [address], [place] [id number] MD Franco Fajardo MD Phone: [phone]
== END 2021-05-21 11:45 | disposition home or self-care (01) ==
LOC: SURG 08:02
PROVIDERS: ATTEND Orthopaedic Surgery
DX: G56.22 Lesion of ulnar nerve, left upper limb (principal); D17.39 Benign lipomatous neoplasm of skin and subcutaneous tissue of other sites; R22.32 Localized swelling, mass and lump, left upper limb; I25.10 Atherosclerotic heart disease of native coronary artery without angina pectoris; I10 Essential (primary) hypertension; E78.00 Pure hypercholesterolemia, unspecified; E66.9 Obesity, unspecified; K21.9 Gastro-esophageal reflux disease without esophagitis; M19.90 Unspecified osteoarthritis, unspecified site; F41.9 Anxiety disorder, unspecified; F17.210 Nicotine dependence, cigarettes, uncomplicated; Z90.710 Acquired absence of both cervix and uterus; Z98.890 Other specified postprocedural states; Z79.899 Other long term (current) drug therapy; Z79.82 Long term (current) use of aspirin; Z72.89 Other problems related to lifestyle
CPT/HCPCS: 26111; 64718; 88304; A4364; A4930; A6402; A6449; J0690; J0780; J1100; J2250; J2270; J2405; J2704; J3010; J3490; A4452; A4657; A6452

== ENCOUNTER → 2021-07-01 | Outpatient (CLI) | payer MEDICARE, OTHER ==
[~2021-07-01] MED LIST changes: +HYDR-2765 PO; -HYDROmorphone 2 MG/ML VIAL IVP PRN; -IV RINGERS,LACTATED 1000ML 1,000 ML IV SCH; -PROCHLORPERAZINE 10 MG/2 ML VIAL. IVP PRN; -ceFAZolin 2GM PREMIX 2 GM/50 ML BAG IV ONE; -fentaNYL PF VIAL 100 MCG/2 ML VIAL IVP PRN
--- NOTE | 2021-07-01 14:57 | RAD ---
EXAM: Right breast diagnostic mammogram with tomosynthesis. HISTORY: 60-year-old female presents for 6 month follow-up evaluation of microcalcifications within t he right breast demonstrated on a mammogram performed 12/29/2020. TECHNIQUE: Full-field digital craniocaudal and mediolateral oblique 2D and 3D tomosynthesis images an d spot magnification images of the right breast are obtained for evaluation. Computer aided detection was applied. COMPARISON: 12/29/2020, 12/22/2020, 03/03/2018 BREAST PARENCHYMAL DENSITY: Level B - Scattered fibroglandular densities FINDINGS: There is a cluster of microcalcifications within the posterior inferior medial aspect of th e right breast which are not significantly changed compared to the prior studies dating to 12/22/2020. There are a few calcifications in this location on the remote study performed 03/03/2018. The stabilit y compared to recent studies and slow interval twisting frame changer a three-year interval and morphology of th e calcifications favors a benign etiology such as a degenerating fibroadenoma. There are few addition al scattered calcifications with benign morphology within the right breast. There are stable areas of asymmetry and nodularity within the right breast. The largest of these is seen within the 4:00 posit ion anterior to mid depth. The greater than 3 year course of stability favors benignity. IMPRESSION: 1. Cluster of suspected benign calcifications within the posterior inferior medial right breast. Thes e are stable compared to the most recent comparison studies. The appearance favors a degenerating fib roadenoma. Continued short-term follow-up with a diagnostic mammogram including magnification views i n 6 months is recommended to confirm longer-term stability. 2. BI-RADS Category 3: Probably benign finding(s). Short term follow up with a diagnostic mammogram i ncluding magnification views in 6 months is recommended. This follow up interval corresponds with a p reviously established bilateral mammography interval. If your mammogram demonstrates that you have dense breast tissue, which could hide abnormalities, and if you have other risk factors for breast cancer that have been identified, you might benefit from s upplemental screening tests that may be suggested by your ordering physician. Dense breast tissue, i n and of itself, is a relatively common condition. This information is not provided to cause undue c oncern, but rather to raise your awareness and to promote discussion with your physician regarding th e presence of other risk factors, in addition to dense breast tissue. A report of your mammography re sults will be sent to you and your physician. You should contact your physician if you have any ques tions or concerns regarding this report. Mammography is a sensitive method for finding small breast cancers, but it does not detect them all a nd is not a substitute for careful clinical examination. A negative mammogram does not negate a clin ically suspicious finding and should not result in delay in biopsying a clinically suspicious abnorma lity. PQRS compliance statement - Patient information was entered into a reminder system with a target due date for the next mammogram. "Our facility is accredited by the [employer] Mammography [employer]." Electronically signed by: Moira Hernández MD (07/01/2021 2:55 PM) [id number]
== END ==
LOC: MAMMO 13:56
PROVIDERS: ATTEND Internal Medicine
DX: R92.8 Other abnormal and inconclusive findings on diagnostic imaging of breast (principal)
CPT/HCPCS: 77065; G0279; 77061

== ENCOUNTER → 2021-07-30 | Outpatient (CLI) | payer MEDICARE, OTHER ==
--- NOTE | 2021-07-30 17:06 | RAD ---
EXAM: Bilateral lower extremity arterial Doppler. HISTORY: Peripheral vascular disease. Atherosclerosis. Cigarette smoking. TECHNIQUE: Ramsey scale and color Doppler sonographic imaging of the lower extremity arteries with spec tral waveform analysis was performed. COMPARISON: None. FINDINGS: There are biphasic and triphasic waveforms and there are normal peak systolic velocities wi thin the bilateral lower extremity arteries. There is no hemodynamically significant stenosis. There is no occlusion. IMPRESSION: No evidence of hemodynamically significant stenosis or occlusion involving the lower extr emity arteries. Electronically signed by: Moira Hernández MD (07/30/2021 5:04 PM) [id number]
== END ==
LOC: US 15:41
PROVIDERS: ATTEND Podiatrist Foot & Ankle Surgery
DX: I73.9 Peripheral vascular disease, unspecified (principal); Z87.891 Personal history of nicotine dependence
CPT/HCPCS: 93925

== ENCOUNTER → 2022-01-04 | Outpatient (CLI) | payer MEDICARE, OTHER ==
--- NOTE | 2022-01-04 15:07 | RAD ---
EXAM: Bilateral digital screening mammogram with tomosynthesis. HISTORY: 61-year-old female presents for follow-up evaluation of right breast calcifications. The pat ient is due for bilateral mammography. TECHNIQUE: Full-field digital craniocaudal and mediolateral oblique 2D and 3D tomosynthesis images of both breasts are obtained for evaluation. Computer aided detection was applied. Spot magnification v iews of the right breast to assess previously demonstrated clustered calcifications are also obtained . COMPARISON: 07/01/2021, 12/29/2020, 12/22/2020, 03/03/2018 BREAST PARENCHYMAL DENSITY: Level B - Scattered fibroglandular densities. FINDINGS: There has been slight interval increase in density of predominantly coarse clustered microc alcifications within the inferior medial posterior right breast. The morphology and interval change f avors a benign etiology such as a degenerating fibroadenoma. There are multiple stable nodular densit ies within both breasts, the largest of which is seen at the 4:00 position of the right breast at ant erior depth. The nearly 4 year course of stability of these findings favors benignity. There are a fe w scattered benign calcifications within both breasts. There is no architectural distortion. IMPRESSION: 1. Suspected benign cluster of microcalcifications within the inferior medial posterior right breast, possibly due to a degenerating fibroadenoma. 2. No new suspicious mammographic finding. 3. BI-RADS Category 3: Probably benign finding(s). Precautionary repeat short-term term follow up wit h a right breast diagnostic mammogram including magnification views of the aforementioned calcificati ons is recommended to confirm longer-term stability. If your mammogram demonstrates that you have dense breast tissue, which could hide abnormalities, and if you have other risk factors for breast cancer that have been identified, you might benefit from s upplemental screening tests that may be suggested by your ordering physician. Dense breast tissue, i n and of itself, is a relatively common condition. This information is not provided to cause undue c oncern, but rather to raise your awareness and to promote discussion with your physician regarding th e presence of other risk factors, in addition to dense breast tissue. A report of your mammography re sults will be sent to you and your physician. You should contact your physician if you have any ques tions or concerns regarding this report. Mammography is a sensitive method for finding small breast cancers, but it does not detect them all a nd is not a substitute for careful clinical examination. A negative mammogram does not negate a clin ically suspicious finding and should not result in delay in biopsying a clinically suspicious abnorma lity. PQRS compliance statement - Patient information was entered into a reminder system with a target due date for the next mammogram. "Our facility is accredited by the [employer] Mammography [employer]." Electronically signed by: Moira Hernández MD (01/04/2022 3:05 PM) [id number]
== END ==
LOC: MAMMO 13:21
PROVIDERS: ATTEND Internal Medicine
DX: R92.8 Other abnormal and inconclusive findings on diagnostic imaging of breast (principal)
CPT/HCPCS: 77066

== ENCOUNTER → 2022-01-04 | Outpatient (CLI) | payer MEDICARE, OTHER ==
[~2022-01-04] MED LIST changes: +REGADENOSON 0.4 MG/5 ML DISP.SYRIN. IV ONE
--- NOTE | 2022-01-05 10:27 | CARD ---
MR#: [id number] Date of Study: 01/04/2022 Ordering Physician: EDYTA AZEVEDO, Referring Physician: Kirstie CHINO: Alfa Johnson [facility] APPROVED REPORT EXAM: Two-dimensional and M-mode echocardiogram with Doppler and color Doppler. Other Information Quality : FairHR: 76bpm Rhythm : NSR INDICATION Cardiac Disease: CAD RISK FACTORS Hypertension Hyperlipidemia 2D DIMENSIONS Left Atrium(2D)3.2 (1.6-4.0cm)IVSd0.9 (0.7-1.1cm) Aortic Root(2D)3.5 (2.0-3.7cm)LVDd5.1 (3.9-5.9cm) LVOT Diameter2.0 (1.8-2.4cm)PWd0.9 (0.7-1.1cm) LVDs3.1 (2.5-4.0cm)FS (%) 39.5 % SV88.0 ml Aortic Valve AoV Peak Chirag.92.2cm/sAoV VTI17.9cm AO Peak GR.3.4mmHgLVOT Peak Chirag.94.8cm/s AO Mean GR.2mmHgAVA (VMAX)3.07cm2 Mitral Valve MV E Xcobpbjt30.8cm/sMV E Peak Gr.4mmHg MV DECEL [id number] A Rvwpbmpx28.2cm/s MV E Mean Gr.2mmHgE/A Ratio0.8 Pulmonary Valve PV Peak Djfoflra56.3cm/s Tricuspid Valve TR P. Gwrvdwkn621mu/sTR Peak Gr.28mmHg Pulmonary Vein S1 Wtbsilos35.8cm/sD2 Jbylllwx67.3cm/s LEFT VENTRICLE The left ventricle is normal size. There is borderline concentric left ventricular hypertrophy. The l eft ventricular systolic function is normal and the ejection fraction is within normal range. LV ejec tion fraction of 55 to 60%. There is normal LV segmental wall motion. No left ventricle thrombus note d on this study. There is no ventricular septal defect visualized. There is no left ventricular aneur ysm. There is no mass noted in the left ventricle. RIGHT VENTRICLE The right ventricle is normal size. There is normal right ventricular wall thickness. The right ventr icular systolic function is normal. ATRIA The left atrium size is normal. The right atrium size is normal. The interatrial septum is intact wit h no evidence for an atrial septal defect or patent foramen ovale as noted on 2-D or Doppler imaging. AORTIC VALVE The aortic valve is normal in structure and function. Doppler and Color Flow revealed no significant aortic regurgitation. There is no significant aortic valvular stenosis. There is no aortic valvular v egetation. MITRAL VALVE The mitral valve is normal in structure and function. There is no evidence of mitral valve prolapse. There is no mitral valve stenosis. Doppler and Color-flow revealed trace to mild mitral regurgitation . TRICUSPID VALVE The tricuspid valve is normal in structure and function. Doppler and Color Flow revealed trace tricus pid regurgitation. There is no tricuspid valve prolapse or vegetation. There is no tricuspid valve st enosis. PULMONIC VALVE The pulmonary valve is normal in structure and function. Doppler and Color Flow revealed no pulmonic valvular regurgitation. There is no pulmonic valvular stenosis. GREAT VESSELS The aortic root is normal in size. The ascending aorta is normal in size. The pulmonary artery is nor mal. The IVC is normal in size and collapses >50% with inspiration. PERICARDIAL EFFUSION There is no pleural effusion. There is no evidence of significant pericardial effusion. Critical Notification Critical Value: No <Conclusion> The left ventricle is normal size. The left ventricular systolic function is normal and the ejection fraction is within normal range. LV ejection fraction of 55 to 60%. There is borderline concentric left ventricular hypertrophy. Doppler and Color Flow revealed no significant aortic regurgitation. There is no significant aortic valvular stenosis. Doppler and Color-flow revealed trace to mild mitral regurgitation. Doppler and Color Flow revealed trace tricuspid regurgitation. Signed by : Pascual Garrido MD Electronically Approved : 01/05/2022 10:26:55
--- NOTE | 2022-01-05 11:16 | RAD ---
MR#: [id number] Date of Study: 01/04/2022 Ordering Physician: EDYTA AZEVEDO, Referring Physician: NATALY CHINO Tech: RT Dawood (R) (N) APPROVED REPORT Test Type: Pharmacological Stress Nurse/Tech: JACKY MOORE Test Indications: CAD Cardiac History: CAD, CO, STENTS- SEE EMR Medications: SEE EMR Medical History: SEE EMR Resting ECG: SR Resting Heart Rate: 82 bpm Resting Blood Pressure: 168/98mmHg Pretest Chest Pain: No chest pain Nurse/Tech Notes S1,S2, LUNGS CTA, VSS, DENIED CHEST PAIN OR SHORTNESS OF BREATH. Consent: The procedure was explained to the patient in lay terms. Informed consent was witnessed. Taran eout was entered into [employer]. History and Stress Test performed by SANTA Morris, ARRT (R) (N) Pharm. Details Pharmacologic stress testing was performed using 0.4mg per 5ml of regadenoson given intravenously ove r 7-10 seconds. Stress Symptoms PT TOLERATED TESTING WELL, ONLY COMPLAINT WAS OF SLIGHT NAUSEA. VSS. SYMPTOMS RESOLVED QUICKLY, NO CO MPLAINTS. POST EXERCISE Reason for Termination: Infusion complete Max HR: 131 bpm Max Blood Pressure: 169/74mmHg Blood Pressure response to exercise: Normal blood pressure response during stress. Heart Rate response to exercise: WNL Chest Pain: No. Arrhythmia: . NO SIGNIFICANT CHANGES NOTED FROM BASELINE EKG. INTERPRETATION Stress EKG Conclusion: The resting EKG showed a sinus rhythm with nonspecific T wave changes. The stress EKG showed no significant changes from baseline. No EKG evidence of stress-induced ischemia. Imaging Protocol IMAGE PROTOCOL: Rest Tc-99m/stress Tc-99m 1 day Rest: Stress: Viability: Radiopharm.Tc99m CkpkklyeoVd18e Sestamibi Dose10.1mCi 31mCi Duration 15min. 10min. Img Date 01/04/2022 01/04/2022 Inj-Img [id number]. 60min. Rest Admin Site:[facility] ARMAdministrator:RT Iain Seay)(N) Stress Admin Site: [facility] ARMAdministrator: Fozia Cotton, NATALYTCB, ARRT (R)(N) STRESS DATA End Diast. Vol.102.0mlAv. Heart Rate90.0bpm End Syst. Vol.33.0mlCO Index BSA0.0L/min Myocardial Lizp482.0gEject. Jbxkhoob61.0% Stress Rates Pk. Fill Rate3.61EDV/secLVtime Pk. Fill 182.31msec Pk. Empty Rate3.25ESV/secLVtime Pk. Eject87.93msec 11/29 Pk. Fill0.93EDV/sec Stress Scores Regional WT0.00Summed WT13.00 Regional WM0.00Summed WM4.00 LV Perfusion The stress scans showed no significant defects. The rest scans showed no significant defects. Nuclear imaging shows no reversible ischemia or infarct. Wall Motion Left ventricular systolic function is normal with an ejection fraction of 68%. LV Perf. Quant 17 Seg. SSS0.00 17 Seg. SRS0.00 17 Seg. SDS0.00 Stress Defect Extent (% LAD)0.00Rest Defect Extent (% LAD)0.00Rev. Defect Extent (% LAD)0.00 Stress Defect Extent (% LCX) 0.00Rest Defect Extent (% LCX)0.00Rev. Defect Extent (% LCX)0.00 Stress Defect Extent (% RCA)0.00Rest Defect Extent (% RCA)0.00Rev. Defect Extent (% RCA)0.00 Stress Defect Extent (% MAYRA)0.00Rest Defect Extent (% MAYRA)0.00Rev. Defect Extent (% MAYRA)0.00 Conclusion 1. No EKG evidence of stress-induced ischemia. 2. Nuclear imaging shows no reversible ischemia or infarct. 3. Intact LV systolic function with an ejection fraction of 68%. 4. Low risk Lexiscan nuclear stress test. Signed by : Pascual Garrido MD Electronically Approved : 01/05/2022 11:15:37
== END ==
LOC: ECHO 08:26
PROVIDERS: ATTEND Internal Medicine Cardiovascular Disease
DX: I34.0 Nonrheumatic mitral (valve) insufficiency (principal); I25.10 Atherosclerotic heart disease of native coronary artery without angina pectoris
CPT/HCPCS: 78452; 93017; 93306; A9500; J2785; C8929